=== PATIENT | male | born 1955 | race African-American/Black ===

== ENCOUNTER 2016-07-19 10:58 | Inpatient (IN) | payer OTHER ==
[~2016-07-19] VITALS: Ht 170.2 cm; Wt 46.3 kg
[2016-07-19 12:00] VITALS: BP 94/65
[2016-07-19] MEDS ORDERED: IV NORMAL SALINE 1000ML BAG 1,000 ML IV SCH (12:19)
[2016-07-19] MEDS ORDERED: MAGNESIUM HYDROXIDE 2,400 MG/30 ML ORAL.SUSP. PO PRN (12:30)
[2016-07-19] MEDS ORDERED: MORPHINE SULFATE 2 MG/ML DISP.SYRIN. IV PRN (12:30)
--- NOTE | 2016-07-19 14:06 | EKG ---
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
[2016-07-19 14:18] LABS: BASO % 0 % (0-3); EOS % 0 % (0-3); HEMATOCRIT 32.6 % (39.0-53.0); HEMOGLOBIN 10.2 g/dL (13.0-17.5); LYMPH # 1.2 x10^3/uL (1.0-4.8); LYMPH % 7 % (24-48); MEAN CORPUSCULAR HEMOGLOBIN 26 pg (25-35); MEAN CORPUSCULAR HGB CONC 32 g/dL (31-37); MEAN CORPUSCULAR VOLUME 83 fL (79-100); MONO % 11 % (0-9); NEUT % 82 % (31-73); PLATELET COUNT 295 x10^3/uL (140-400); RED BLOOD COUNT 3.93 x10^6/uL (4.30-5.70); RED CELL DISTRIBUTION WIDTH 15.4 % (11.5-14.5); WHITE BLOOD COUNT 17.1 x10^3/uL (4.0-11.0)
--- NOTE | 2016-07-19 14:22 | PDOC ---
Provider Note Provider Note dictated GUSTAVO COLLAZO MD Jul 19, 2016 14:22
[2016-07-19 14:30] LABS: INR 1.5 (0.8-1.1); PROTHROMBIN TIME PATIENT 16.9 SEC (11.7-14.0)
[2016-07-19 14:36] LABS: CALCIUM 8.5 mg/dL (8.5-10.1); CREATININE 1.1 mg/dL (0.7-1.3); GFR 82.3; POTASSIUM 4.2 mmol/L (3.5-5.1)
[2016-07-19 14:40] VITALS: BP 116/75
[2016-07-19] MEDS: ONDANSETRON PF 4 MG/2 ML VIAL. IV PRN (15:15)
[2016-07-19] MEDS: HEPARIN PF for SUB-Q USE 5,000 UNIT/0.5 ML VIAL. SQ SCH ×2 (15:28→20:28)
--- NOTE | 2016-07-19 15:50 | CONS ---
DATE OF CONSULTATION: 07/19/2016 ATTENDING PHYSICIAN: Yane Jean-Baptiste MD. REASON FOR CONSULTATION: Lung cancer. 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 He presented with persistent cough, ongoing weight loss of 20 pounds. The patient has not received any radiation/chemo yet. He called Dr. Francisco and was complaining of weakness and appeared dehydrated. As a result, he has been hospitalized. Outside CT chest from [place] was reviewed. He had a CT chest, which showed a mass in the right main stem bronchus along with adenopathy. There was postobstructive pneumonitis and effusion involving the right lower lobe. The patient had MRI head and bone scan and CT abdomen at [place] which showed no occult metastatic disease. I have been asked to see him for further evaluation. He appears very weak. He has a cough. No hemoptysis. I have reviewed the patient's chest x-ray. He had significant volume loss in the right one-third of the right upper lobe and a small effusion to the right lower lobe. PAST MEDICAL HISTORY: 1. 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 Metastatic workup including MRI of the head and bone scan and CT abdomen was negative. 2. Postobstructive pneumonitis. 3. Right lower lobe effusion. 4. Underlying COPD. PAST SURGICAL HISTORY: No recent surgeries except appendectomy in the remote past. ALLERGIES: PENICILLIN. REVIEW OF SYSTEMS: Twelve-point systems obtained. Pertinent positives discussed in history of present illness, otherwise noncontributory. All systems that were negative were reviewed as well. SOCIAL HISTORY: Smoked for about 40 years before quitting few weeks ago. FAMILY HISTORY: Noncontributory to lungs. PHYSICAL EXAMINATION: VITAL SIGNS: His vital signs today, blood pressure 94/65, T-max of 100.6, pulse ox 98% on room air. HEENT: Sclerae are nonicteric. NECK: Supple. LUNGS: Diminished breath sounds, right mid chest. CARDIOVASCULAR: Regular rate and rhythm. ABDOMEN: Soft. EXTREMITIES: With no pitting edema. LABORATORY DATA: Have been ordered and they are still not available. I reviewed the chest x-ray which showed marked volume loss in the right one-third of the upper lungs and effusion in the right lower lobe. We will order CT chest for further evaluation. IMPRESSION: 1. 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 Now admitted with dehydration and fever. 2. Postobstructive pneumonia, which was also best visualized on CT chest from [facility]. 3. Right lower lobe pleural effusion, most likely malignant. 4. Fever secondary to postobstructive pneumonia. 5. Marked weight loss due to malignancy. 7. Underlying chronic obstructive pulmonary disease. RECOMMENDATIONS: 1. Discussed with the patient and the family. We will obtain noncontrast CT chest for further evaluation. 2. IV fluids. 3. Add empiric antibiotics. 4. Follow up with Dr. Francisco regarding initiation of radiation. 5. Follow up with Dr. Quinones regarding consideration of chemo. 6. Improve nutritional status. 7. Further recommendations to follow after review of CT chest. d/w family and Dr Jean-Baptiste GUSTAVO COLLAZO MD DR: KITA/caroline JOB#: [id number] / [id number] VENKATESH
[2016-07-19] MEDS ORDERED: ALBUTEROL SULFATE 2.5 MG/3 ML NEBU. NEB PRN (16:00)
--- NOTE | 2016-07-19 16:04 | PDOC1 ---
History and Physical Date of Admission Date of Admission 07/19/16 Identification/Chief Complaint Chief Complaint lung Ca, sob Problems: Source Source: Caregiver, Patient History of Present Illness History of Present Illness 60yo M, who was seen and sent by dr. Francisco for lung Ca. Pt is a poor historian, saying has been feeling exertional sob for 1 month, went to [facility] , found rt Lung Ca, got bx showed adenocarcinoma as per dr. Francisco. cough with clear mucus. lost 15 p within 3 months, low appetite, N/V 2 Weeks. no fever, chills quit smoke 3months. family has cancer history, no details. Past Medical History Cardiovascular: HTN Past Surgical History Past Surgical History: Appendectomy Family History Family History: Cancer Social History Smoke: Quit ALCOHOL: none Drugs: None Current Problem List Problem List Problems Medical Problems: (1) Lung cancer Status: Acute Current Medications Current Medications Current Medications Medications (Trade) Dose Ordered Sig/Francisco Start Time Stop Time Status Last Admin Dose Admin Acetaminophen (Tylenol) 650 mg PRN Q6HRS PRN 07/19/16 12:30 Acetaminophen/ Hydrocodone Bitart (Lortab 5/325) 1 tab PRN Q4HRS PRN 07/19/16 12:30 Albuterol/ Ipratropium (Duoneb) 3 ml RTQID 07/19/16 16:00 Heparin Sodium (Porcine) 5000 unit 5,000 unit Q8HRS 07/19/16 14:00 07/19/16 15:28 5,000 UNIT Levofloxacin/ Dextrose (LEVAQUIN 500mg PREMIX) 100 ml @ 100 mls/hr Q24H 07/19/16 15:30 07/19/16 15:16 100 MLS/HR Magnesium Hydroxide (Milk Of Magnesia) 2,400 mg PRN Q12HR PRN 07/19/16 12:30 Morphine Sulfate 2 mg PRN Q1HR PRN 07/19/16 12:30 Ondansetron HCl (Zofran) 4 mg PRN Q6HRS PRN 07/19/16 12:30 07/19/16 15:15 4 MG Sodium Chloride (Iv Sodium Chloride 0.9% 1000ml Bag) 1,000 ml @ 100 mls/hr Q10H 07/19/16 12:19 07/19/16 22:18 07/19/16 14:47 100 MLS/HR Allergies Allergies Allergies Coded Allergies Type Severity Reaction Last Updated Verified Penicillins Allergy Intermediate 07/19/16 No ROS Review of System CONSTITUTIONAL: No fever or chills EYES: No recent changes SKIN: No rash or itching CARDIOVASCULAR: No chest pain, syncope, palpitations, or edema RESPIRATORY: No SOB or cough GASTROINTESTINAL: No nausea, vomiting or abdominal pain NEUROLOGICAL: No headaches or weakness ENDOCRINE: No cold or heat intolerance GENITOURINARY: No urgency or frequency of urination MUSCULOSKELETAL: No back pain or joint pain LYMPHATICS: No enlarged lymph nodes PSYCHIATRIC: No anxiety or depression Physical Exam Physical Exam GEN.: No apparent distress. Alert and oriented. weak HEENT: Head is normocephalic, atraumatic NECK: Supple. LUNGS: rt decreased bs. HEART: RRR, S1, S2 present. Peripheral pulses intact ABDOMEN: Soft, nontender. Positive bowel sounds. EXTREMITIES: Without any cyanosis. NEUROLOGIC: Normal speech, normal tone PSYCHIATRIC: Normal affect, normal mood. SKIN: No ulcerations Vitals Vitals Vital Signs Date Time Temp Pulse Resp B/P Pulse Ox O2 Delivery O2 Flow Rate FiO2 07/19/16 14:40 100.9 100 18 116/75 99 Room Air 100.9 Labs Labs Laboratory Tests Test 07/19/16 14:05 White Blood Count 17.1x10^3/uL (4.0-11.0) Red Blood Count 3.93x10^6/uL (4.30-5.70) Hemoglobin 10.2g/dL (13.0-17.5) Hematocrit 32.6% (39.0-53.0) Mean Corpuscular Volume 83fL (79-100) Mean Corpuscular Hemoglobin 26pg (25-35) Mean Corpuscular Hemoglobin Concent 32g/dL (31-37) Red Cell Distribution Width 15.4% (11.5-14.5) Platelet Count 295x10^3/uL (140-400) Neutrophils (%) (Auto) 82% (31-73) Lymphocytes (%) (Auto) 7% (24-48) Monocytes (%) (Auto) 11% (0-9) Eosinophils (%) (Auto) 0% (0-3) Basophils (%) (Auto) 0% (0-3) Neutrophils # (Auto) 14.1x10^3uL (1.8-7.7) Lymphocytes # (Auto) 1.2x10^3/uL (1.0-4.8) Monocytes # (Auto) 1.8x10^3/uL (0.0-1.1) Eosinophils # (Auto) 0.0x10^3/uL (0.0-0.7) Basophils # (Auto) 0.0x10^3/uL (0.0-0.2) Prothrombin Time 16.9SEC (11.7-14.0) Prothromb Time International Ratio 1.5 (0.8-1.1) Sodium Level 136mmol/L (136-145) Potassium Level 4.2mmol/L (3.5-5.1) Chloride Level 101mmol/L (98-107) Carbon Dioxide Level 31mmol/L (21-32) Anion Gap 4 (6-14) Blood Urea Nitrogen 23mg/dL (8-26) Creatinine 1.1mg/dL (0.7-1.3) Estimated GFR (Cockcroft-Gault) 82.3 Glucose Level 151mg/dL (70-99) Calcium Level 8.5mg/dL (8.5-10.1) Laboratory Tests Test 07/19/16 14:05 White Blood Count 17.1x10^3/uL (4.0-11.0) Red Blood Count 3.93x10^6/uL (4.30-5.70) Hemoglobin 10.2g/dL (13.0-17.5) Hematocrit 32.6% (39.0-53.0) Mean Corpuscular Volume 83fL (79-100) Mean Corpuscular Hemoglobin 26pg (25-35) Mean Corpuscular Hemoglobin Concent 32g/dL (31-37) Red Cell Distribution Width 15.4% (11.5-14.5) Platelet Count 295x10^3/uL (140-400) Neutrophils (%) (Auto) 82% (31-73) Lymphocytes (%) (Auto) 7% (24-48) Monocytes (%) (Auto) 11% (0-9) Eosinophils (%) (Auto) 0% (0-3) Basophils (%) (Auto) 0% (0-3) Neutrophils # (Auto) 14.1x10^3uL (1.8-7.7) Lymphocytes # (Auto) 1.2x10^3/uL (1.0-4.8) Monocytes # (Auto) 1.8x10^3/uL (0.0-1.1) Eosinophils # (Auto) 0.0x10^3/uL (0.0-0.7) Basophils # (Auto) 0.0x10^3/uL (0.0-0.2) Prothrombin Time 16.9SEC (11.7-14.0) Prothromb Time International Ratio 1.5 (0.8-1.1) Sodium Level 136mmol/L (136-145) Potassium Level 4.2mmol/L (3.5-5.1) Chloride Level 101mmol/L (98-107) Carbon Dioxide Level 31mmol/L (21-32) Anion Gap 4 (6-14) Blood Urea Nitrogen 23mg/dL (8-26) Creatinine 1.1mg/dL (0.7-1.3) Estimated GFR (Cockcroft-Gault) 82.3 Glucose Level 151mg/dL (70-99) Calcium Level 8.5mg/dL (8.5-10.1) VTE Prophylaxis Ordered VTE Prophylaxis Devices: Yes VTE Pharmacological Prophylaxi: Yes Assessment/Plan Assessment/Plan 1. right lung Adenocarcinoma, no treatment yet 2. tobaccoism 3. weight loss 4. bronchitis with 1 5. SIRS with 1 and 4 plan: 1. pulm, onco, RT consult 2. chest CT pending 3. check abd, pelvis to rule out mets 4. ivf 5. levaquin ,duoneb as per pulm 6. DNR dvt ppx PTOT nutrition consult KRISTI GOMEZ MD Jul 19, 2016 16:03
--- NOTE | 2016-07-19 16:12 | RAD ---
EXAM: Chest one view. HISTORY: Lung cancer. COMPARISON: 06/14/2016. FINDINGS: A frontal view of the chest is obtained. The right upper hemithorax is opacified, consistent with a combination of atelectasis and likely a loculated pleural effusion. A small amount of residual aerated lung persists in the right base, not clearly changed. Hyperinflation on the left is consistent with chronic obstructive pulmonary disease. There is no pneumothorax. The heart is not enlarged. IMPRESSION: 1. Stable opacification and volume loss in the right superior hemithorax, consistent with atelectasis and a loculated pleural effusion. CT could further define the anatomy if unclear.
[2016-07-19] MEDS ORDERED: IOHEXOL 300 MG/ML 75 ML VIAL IV ONE (16:15)
[2016-07-19] MEDS ORDERED: CONTRAST GIVEN MC PRN (16:15)
--- NOTE | 2016-07-19 17:01 | RAD ---
CT scan of the chest, abdomen and pelvis with contrast 07/19/2016 Clinical history: Lung cancer. Technique: After the intravenous administration of 75 cc of Omnipaque 300 only, contiguous, 5 mm axial sections were obtained to the chest abdomen and pelvis. One or more of the following individualized dose reduction techniques were utilized for this study: 1. Automated exposure control. 2. Adjustment of the mA and/or kV according to patient size. 3. Use of iterative reconstruction technique. Findings: Comparison is made to the patient's outside CT scan of the abdomen and pelvis dated 06/12/2016. This was performed at [facility]. There is a large right pleural effusion which has increased since the previous examination. Right upper lobe atelectasis is seen. Right lower lobe and to a lesser extent right middle lobe atelectasis and/ or infiltrate is noted. A low-attenuation masslike area is seen in the right hilum which extends to the mediastinum. This appears to extrinsically compress the origin of the right upper lobe bronchus and extrinsically narrows the right main pulmonary artery. It measures approximately 6.4 x 5.6 x 3.8 cm in transverse, craniocaudal and AP dimensions. This is consistent with the patient's history of lung cancer. No discrete mediastinal lymph node is seen. Mild atherosclerotic calcification of the thoracic aorta is seen. The thoracic aorta is tortuous but tapers normally. The heart is normal in size. Moderate bullous emphysematous changes are seen involving the left lung. A 4 mm calcified granuloma is seen involving the left lower lobe. The liver, spleen, pancreas, right adrenal gland and left kidney are within normal limits. Small areas of scarring are seen involving the right kidney. A 1.6 cm low-attenuation lesion is seen involving the left adrenal gland which is suspicious for a metastasis. Moderate atherosclerotic calcification of the abdominal aorta is seen. The abdominal aorta tapers normally. The gallbladder is well-distended. No free fluid or free air is seen within the abdomen. There is no evidence of bowel obstruction. Images through the pelvis demonstrate several diverticula involving the urinary bladder. These measure 2 to 5.7 cm in size. A 2.4 cm area of increased attenuation is seen within the dependent aspect of the largest diverticulum which may represent a bladder calculus versus layering dependent contrast within the urinary bladder. The prostate gland is enlarged likely related to BPH. Calcifications are seen within the prostate gland. Calcified granulomas are seen within the pelvis. No free fluid is seen. Degenerative changes are seen involving the thoracic and lumbar spine. Impression: 1. 6.4 cm right hilar mass is seen which extends to the mediastinum consistent with the patient's history of lung cancer. 2. Large right pleural effusion. Right upper lobe atelectasis is seen. Right lower lobe and right middle lobe atelectasis and/or infiltrate is noted. 3. 1.5 cm low-attenuation lesion is seen involving the left adrenal gland suspicious for a metastasis.
[2016-07-19] MEDS: IPRATRPIUM/ALBUTEROL 0.5/2.5MG 3 ML NEBU. NEB SCH ×2 (17:07→20:23)
[2016-07-19 19:00] VITALS: BP 105/63
[2016-07-19] MEDS: HYDROCODONE/APAP 5/325MG TABLET. PO PRN (20:28)
[2016-07-19 23:00] VITALS: BP 90/62
[2016-07-20] VITALS (14 sets, daily range): BP systolic 89–116; BP diastolic 57–84
[2016-07-20 03:50] LABS: BASO % 0 % (0-3); EOS % 0 % (0-3); HEMATOCRIT 31.6 % (39.0-53.0); HEMOGLOBIN 10.1 g/dL (13.0-17.5); LYMPH % 6 % (24-48); MEAN CORPUSCULAR HEMOGLOBIN 26 pg (25-35); MEAN CORPUSCULAR HGB CONC 32 g/dL (31-37); MEAN CORPUSCULAR VOLUME 83 fL (79-100); MONO % 9 % (0-9); NEUT % 85 % (31-73); PLATELET COUNT 282 x10^3/uL (140-400); RED BLOOD COUNT 3.82 x10^6/uL (4.30-5.70); WHITE BLOOD COUNT 17.1 x10^3/uL (4.0-11.0)
[2016-07-20 04:10] LABS: CALCIUM 8.7 mg/dL (8.5-10.1); GFR 91.9; MAGNESIUM 2.1 mg/dL (1.8-2.4); PHOSPHORUS 2.6 mg/dL (2.6-4.7); POTASSIUM 4.2 mmol/L (3.5-5.1)
[2016-07-20 04:15] LABS: ALBUMIN 1.6 g/dL (3.4-5.0); DIRECT BILIRUBIN 0.2 mg/dL (0.0-0.2); TOTAL BILIRUBIN 0.4 mg/dL (0.2-1.0); TOTAL PROTEIN 6.8 g/dL (6.4-8.2)
[2016-07-20] MEDS: HEPARIN PF for SUB-Q USE 5,000 UNIT/0.5 ML VIAL. SQ SCH ×3 (05:52→21:04)
[2016-07-20] MEDS: IPRATRPIUM/ALBUTEROL 0.5/2.5MG 3 ML NEBU. NEB SCH ×4 (07:31→19:16)
[2016-07-20 07:38] LABS: PLT ESTIMATE ADEQUATE (ADEQUATE)
--- NOTE | 2016-07-20 08:33 | PDOC ---
PULMONARY PROGRESS NOTES Subjective no soa Vitals Vital Signs Date Time Temp Pulse Resp B/P Pulse Ox O2 Delivery O2 Flow Rate FiO2 07/20/16 07:33 94 Room Air 07/20/16 03:18 99.5 78 20 94/62 99.5 General: Alert, No acute distress Lungs: Other (decrease bs right) Cardiovascular: S1 Abdomen: Soft Neuro Exam: Alert Extremities: No Edema Skin: Warm Labs Laboratory Tests Test 07/19/16 14:05 07/20/16 03:10 White Blood Count 17.1x10^3/uL (4.0-11.0) 17.1x10^3/uL (4.0-11.0) Red Blood Count 3.93x10^6/uL (4.30-5.70) 3.82x10^6/uL (4.30-5.70) Hemoglobin 10.2g/dL (13.0-17.5) 10.1g/dL (13.0-17.5) Hematocrit 32.6% (39.0-53.0) 31.6% (39.0-53.0) Mean Corpuscular Volume 83fL (79-100) 83fL (79-100) Mean Corpuscular Hemoglobin 26pg (25-35) 26pg (25-35) Mean Corpuscular Hemoglobin Concent 32g/dL (31-37) 32g/dL (31-37) Red Cell Distribution Width 15.4% (11.5-14.5) 15.0% (11.5-14.5) Platelet Count 295x10^3/uL (140-400) 282x10^3/uL (140-400) Neutrophils (%) (Auto) 82% (31-73) 85% (31-73) Lymphocytes (%) (Auto) 7% (24-48) 6% (24-48) Monocytes (%) (Auto) 11% (0-9) 9% (0-9) Eosinophils (%) (Auto) 0% (0-3) 0% (0-3) Basophils (%) (Auto) 0% (0-3) 0% (0-3) Neutrophils # (Auto) 14.1x10^3uL (1.8-7.7) 14.5x10^3uL (1.8-7.7) Lymphocytes # (Auto) 1.2x10^3/uL (1.0-4.8) 1.0x10^3/uL (1.0-4.8) Monocytes # (Auto) 1.8x10^3/uL (0.0-1.1) 1.5x10^3/uL (0.0-1.1) Eosinophils # (Auto) 0.0x10^3/uL (0.0-0.7) 0.0x10^3/uL (0.0-0.7) Basophils # (Auto) 0.0x10^3/uL (0.0-0.2) 0.0x10^3/uL (0.0-0.2) Prothrombin Time 16.9SEC (11.7-14.0) Prothromb Time International Ratio 1.5 (0.8-1.1) Sodium Level 136mmol/L (136-145) 135mmol/L (136-145) Potassium Level 4.2mmol/L (3.5-5.1) 4.2mmol/L (3.5-5.1) Chloride Level 101mmol/L (98-107) 100mmol/L (98-107) Carbon Dioxide Level 31mmol/L (21-32) 29mmol/L (21-32) Anion Gap 4 (6-14) 6 (6-14) Blood Urea Nitrogen 23mg/dL (8-26) 15mg/dL (8-26) Creatinine 1.1mg/dL (0.7-1.3) 1.0mg/dL (0.7-1.3) Estimated GFR (Cockcroft-Gault) 82.3 91.9 Glucose Level 151mg/dL (70-99) 175mg/dL (70-99) Calcium Level 8.5mg/dL (8.5-10.1) 8.7mg/dL (8.5-10.1) Segmented Neutrophils % 84% (35-66) Lymphocytes % 8% (24-48) Monocytes % 8% (0-10) Platelet Estimate Adequate (ADEQUATE) Phosphorus Level 2.6mg/dL (2.6-4.7) Magnesium Level 2.1mg/dL (1.8-2.4) Total Bilirubin 0.4mg/dL (0.2-1.0) Direct Bilirubin 0.2mg/dL (0.0-0.2) Aspartate Amino Transf (AST/SGOT) 12U/L (15-37) Alanine Aminotransferase (ALT/SGPT) 10U/L (16-63) Alkaline Phosphatase 63U/L (46-116) Total Protein 6.8g/dL (6.4-8.2) Albumin 1.6g/dL (3.4-5.0) Laboratory Tests Test 07/19/16 14:05 07/20/16 03:10 White Blood Count 17.1x10^3/uL (4.0-11.0) 17.1x10^3/uL (4.0-11.0) Red Blood Count 3.93x10^6/uL (4.30-5.70) 3.82x10^6/uL (4.30-5.70) Hemoglobin 10.2g/dL (13.0-17.5) 10.1g/dL (13.0-17.5) Hematocrit 32.6% (39.0-53.0) 31.6% (39.0-53.0) Mean Corpuscular Volume 83fL (79-100) 83fL (79-100) Mean Corpuscular Hemoglobin 26pg (25-35) 26pg (25-35) Mean Corpuscular Hemoglobin Concent 32g/dL (31-37) 32g/dL (31-37) Red Cell Distribution Width 15.4% (11.5-14.5) 15.0% (11.5-14.5) Platelet Count 295x10^3/uL (140-400) 282x10^3/uL (140-400) Neutrophils (%) (Auto) 82% (31-73) 85% (31-73) Lymphocytes (%) (Auto) 7% (24-48) 6% (24-48) Monocytes (%) (Auto) 11% (0-9) 9% (0-9) Eosinophils (%) (Auto) 0% (0-3) 0% (0-3) Basophils (%) (Auto) 0% (0-3) 0% (0-3) Neutrophils # (Auto) 14.1x10^3uL (1.8-7.7) 14.5x10^3uL (1.8-7.7) Lymphocytes # (Auto) 1.2x10^3/uL (1.0-4.8) 1.0x10^3/uL (1.0-4.8) Monocytes # (Auto) 1.8x10^3/uL (0.0-1.1) 1.5x10^3/uL (0.0-1.1) Eosinophils # (Auto) 0.0x10^3/uL (0.0-0.7) 0.0x10^3/uL (0.0-0.7) Basophils # (Auto) 0.0x10^3/uL (0.0-0.2) 0.0x10^3/uL (0.0-0.2) Prothrombin Time 16.9SEC (11.7-14.0) Prothromb Time International Ratio 1.5 (0.8-1.1) Sodium Level 136mmol/L (136-145) 135mmol/L (136-145) Potassium Level 4.2mmol/L (3.5-5.1) 4.2mmol/L (3.5-5.1) Chloride Level 101mmol/L (98-107) 100mmol/L (98-107) Carbon Dioxide Level 31mmol/L (21-32) 29mmol/L (21-32) Anion Gap 4 (6-14) 6 (6-14) Blood Urea Nitrogen 23mg/dL (8-26) 15mg/dL (8-26) Creatinine 1.1mg/dL (0.7-1.3) 1.0mg/dL (0.7-1.3) Estimated GFR (Cockcroft-Gault) 82.3 91.9 Glucose Level 151mg/dL (70-99) 175mg/dL (70-99) Calcium Level 8.5mg/dL (8.5-10.1) 8.7mg/dL (8.5-10.1) Segmented Neutrophils % 84% (35-66) Lymphocytes % 8% (24-48) Monocytes % 8% (0-10) Platelet Estimate Adequate (ADEQUATE) Phosphorus Level 2.6mg/dL (2.6-4.7) Magnesium Level 2.1mg/dL (1.8-2.4) Total Bilirubin 0.4mg/dL (0.2-1.0) Direct Bilirubin 0.2mg/dL (0.0-0.2) Aspartate Amino Transf (AST/SGOT) 12U/L (15-37) Alanine Aminotransferase (ALT/SGPT) 10U/L (16-63) Alkaline Phosphatase 63U/L (46-116) Total Protein 6.8g/dL (6.4-8.2) Albumin 1.6g/dL (3.4-5.0) Impression . 1. 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 Now admitted with dehydration and fever. 2. Postobstructive pneumonia, which was also best visualized on CT chest from [facility]. 3. Moderate to large right pleural effusion, most likely malignant. 4. Fever secondary to postobstructive pneumonia. 5. Marked weight loss due to malignancy. 7. Underlying chronic obstructive pulmonary disease. Plan . 1. Discussed with the patient and Dr Ng. CT chest findings discussed. large hilar mass with moderate-large right effusion and post-obstructive collapse RUL/ adrenal mets. would benefit from right chest tube and possible pleurodesis.Pt agrees 2. IV fluids. 3. empiric antibiotics. 4. Follow up with Dr. Francisco regarding initiation of radiation. 5. Follow up with Dr. Quinones regarding consideration of chemo. 6. Improve nutritional status. 7. Prognosis guarded GUSTAVO COLLAZO MD Jul 20, 2016 08:33
--- NOTE | 2016-07-20 08:35 | PDOC ---
PROGRESS NOTES Chief Complaint Chief Complaint 1. right lung Adenocarcinoma, stage 3B 2. sepsis 3. post-obstructive pneumonia, w. pleural effusion, compression 4. severe malnutrition w/ weight 5. mild coagulopathy maybe nutritional, MVI 6. anemia of chronic disease 7. leukocytosis, sepsis, History of Present Illness History of Present Illness IR consulted for chest tube, discussed with Dr. Dominguez, will plan pleurodesis cont IV abx Rad onc and Onc salt for food, nutrition consult, poor PO intake, Vitals Vitals Vital Signs Date Time Temp Pulse Resp B/P Pulse Ox O2 Delivery O2 Flow Rate FiO2 07/20/16 07:33 94 Room Air 07/20/16 03:18 99.5 78 20 94/62 99.5 Physical Exam General: Alert, Oriented X3, Cooperative, mild distress Heart: Regular rate, No murmurs Lungs: Wheezing, Other (dull bases, right dull, poor volume) Abdomen: Normal bowel sounds, Soft Extremities: No cyanosis, Other (extensive nail clubbing) Skin: No breakdown Labs LABS Laboratory Tests Test 07/19/16 14:05 07/20/16 03:10 White Blood Count 17.1x10^3/uL (4.0-11.0) 17.1x10^3/uL (4.0-11.0) Red Blood Count 3.93x10^6/uL (4.30-5.70) 3.82x10^6/uL (4.30-5.70) Hemoglobin 10.2g/dL (13.0-17.5) 10.1g/dL (13.0-17.5) Hematocrit 32.6% (39.0-53.0) 31.6% (39.0-53.0) Mean Corpuscular Volume 83fL (79-100) 83fL (79-100) Mean Corpuscular Hemoglobin 26pg (25-35) 26pg (25-35) Mean Corpuscular Hemoglobin Concent 32g/dL (31-37) 32g/dL (31-37) Red Cell Distribution Width 15.4% (11.5-14.5) 15.0% (11.5-14.5) Platelet Count 295x10^3/uL (140-400) 282x10^3/uL (140-400) Neutrophils (%) (Auto) 82% (31-73) 85% (31-73) Lymphocytes (%) (Auto) 7% (24-48) 6% (24-48) Monocytes (%) (Auto) 11% (0-9) 9% (0-9) Eosinophils (%) (Auto) 0% (0-3) 0% (0-3) Basophils (%) (Auto) 0% (0-3) 0% (0-3) Neutrophils # (Auto) 14.1x10^3uL (1.8-7.7) 14.5x10^3uL (1.8-7.7) Lymphocytes # (Auto) 1.2x10^3/uL (1.0-4.8) 1.0x10^3/uL (1.0-4.8) Monocytes # (Auto) 1.8x10^3/uL (0.0-1.1) 1.5x10^3/uL (0.0-1.1) Eosinophils # (Auto) 0.0x10^3/uL (0.0-0.7) 0.0x10^3/uL (0.0-0.7) Basophils # (Auto) 0.0x10^3/uL (0.0-0.2) 0.0x10^3/uL (0.0-0.2) Prothrombin Time 16.9SEC (11.7-14.0) Prothromb Time International Ratio 1.5 (0.8-1.1) Sodium Level 136mmol/L (136-145) 135mmol/L (136-145) Potassium Level 4.2mmol/L (3.5-5.1) 4.2mmol/L (3.5-5.1) Chloride Level 101mmol/L (98-107) 100mmol/L (98-107) Carbon Dioxide Level 31mmol/L (21-32) 29mmol/L (21-32) Anion Gap 4 (6-14) 6 (6-14) Blood Urea Nitrogen 23mg/dL (8-26) 15mg/dL (8-26) Creatinine 1.1mg/dL (0.7-1.3) 1.0mg/dL (0.7-1.3) Estimated GFR (Cockcroft-Gault) 82.3 91.9 Glucose Level 151mg/dL (70-99) 175mg/dL (70-99) Calcium Level 8.5mg/dL (8.5-10.1) 8.7mg/dL (8.5-10.1) Segmented Neutrophils % 84% (35-66) Lymphocytes % 8% (24-48) Monocytes % 8% (0-10) Platelet Estimate Adequate (ADEQUATE) Phosphorus Level 2.6mg/dL (2.6-4.7) Magnesium Level 2.1mg/dL (1.8-2.4) Total Bilirubin 0.4mg/dL (0.2-1.0) Direct Bilirubin 0.2mg/dL (0.0-0.2) Aspartate Amino Transf (AST/SGOT) 12U/L (15-37) Alanine Aminotransferase (ALT/SGPT) 10U/L (16-63) Alkaline Phosphatase 63U/L (46-116) Total Protein 6.8g/dL (6.4-8.2) Albumin 1.6g/dL (3.4-5.0) Review of Systems Review of Systems nausea poor PO intake, complains of the food not tasting good he may eat anything he wishes, family may bring food Assessment and Plan Assessmemt and Plan Problems Medical Problems: (1) Lung cancer Status: Acute Problems: Comment Review of Relevant I have reviewed the following items peter (where applicable) has been applied. Labs Laboratory Tests Test 07/19/16 14:05 07/20/16 03:10 White Blood Count 17.1x10^3/uL (4.0-11.0) 17.1x10^3/uL (4.0-11.0) Red Blood Count 3.93x10^6/uL (4.30-5.70) 3.82x10^6/uL (4.30-5.70) Hemoglobin 10.2g/dL (13.0-17.5) 10.1g/dL (13.0-17.5) Hematocrit 32.6% (39.0-53.0) 31.6% (39.0-53.0) Mean Corpuscular Volume 83fL (79-100) 83fL (79-100) Mean Corpuscular Hemoglobin 26pg (25-35) 26pg (25-35) Mean Corpuscular Hemoglobin Concent 32g/dL (31-37) 32g/dL (31-37) Red Cell Distribution Width 15.4% (11.5-14.5) 15.0% (11.5-14.5) Platelet Count 295x10^3/uL (140-400) 282x10^3/uL (140-400) Neutrophils (%) (Auto) 82% (31-73) 85% (31-73) Lymphocytes (%) (Auto) 7% (24-48) 6% (24-48) Monocytes (%) (Auto) 11% (0-9) 9% (0-9) Eosinophils (%) (Auto) 0% (0-3) 0% (0-3) Basophils (%) (Auto) 0% (0-3) 0% (0-3) Neutrophils # (Auto) 14.1x10^3uL (1.8-7.7) 14.5x10^3uL (1.8-7.7) Lymphocytes # (Auto) 1.2x10^3/uL (1.0-4.8) 1.0x10^3/uL (1.0-4.8) Monocytes # (Auto) 1.8x10^3/uL (0.0-1.1) 1.5x10^3/uL (0.0-1.1) Eosinophils # (Auto) 0.0x10^3/uL (0.0-0.7) 0.0x10^3/uL (0.0-0.7) Basophils # (Auto) 0.0x10^3/uL (0.0-0.2) 0.0x10^3/uL (0.0-0.2) Prothrombin Time 16.9SEC (11.7-14.0) Prothromb Time International Ratio 1.5 (0.8-1.1) Sodium Level 136mmol/L (136-145) 135mmol/L (136-145) Potassium Level 4.2mmol/L (3.5-5.1) 4.2mmol/L (3.5-5.1) Chloride Level 101mmol/L (98-107) 100mmol/L (98-107) Carbon Dioxide Level 31mmol/L (21-32) 29mmol/L (21-32) Anion Gap 4 (6-14) 6 (6-14) Blood Urea Nitrogen 23mg/dL (8-26) 15mg/dL (8-26) Creatinine 1.1mg/dL (0.7-1.3) 1.0mg/dL (0.7-1.3) Estimated GFR (Cockcroft-Gault) 82.3 91.9 Glucose Level 151mg/dL (70-99) 175mg/dL (70-99) Calcium Level 8.5mg/dL (8.5-10.1) 8.7mg/dL (8.5-10.1) Segmented Neutrophils % 84% (35-66) Lymphocytes % 8% (24-48) Monocytes % 8% (0-10) Platelet Estimate Adequate (ADEQUATE) Phosphorus Level 2.6mg/dL (2.6-4.7) Magnesium Level 2.1mg/dL (1.8-2.4) Total Bilirubin 0.4mg/dL (0.2-1.0) Direct Bilirubin 0.2mg/dL (0.0-0.2) Aspartate Amino Transf (AST/SGOT) 12U/L (15-37) Alanine Aminotransferase (ALT/SGPT) 10U/L (16-63) Alkaline Phosphatase 63U/L (46-116) Total Protein 6.8g/dL (6.4-8.2) Albumin 1.6g/dL (3.4-5.0) Laboratory Tests Test 07/19/16 14:05 07/20/16 03:10 White Blood Count 17.1x10^3/uL (4.0-11.0) 17.1x10^3/uL (4.0-11.0) Red Blood Count 3.93x10^6/uL (4.30-5.70) 3.82x10^6/uL (4.30-5.70) Hemoglobin 10.2g/dL (13.0-17.5) 10.1g/dL (13.0-17.5) Hematocrit 32.6% (39.0-53.0) 31.6% (39.0-53.0) Mean Corpuscular Volume 83fL (79-100) 83fL (79-100) Mean Corpuscular Hemoglobin 26pg (25-35) 26pg (25-35) Mean Corpuscular Hemoglobin Concent 32g/dL (31-37) 32g/dL (31-37) Red Cell Distribution Width 15.4% (11.5-14.5) 15.0% (11.5-14.5) Platelet Count 295x10^3/uL (140-400) 282x10^3/uL (140-400) Neutrophils (%) (Auto) 82% (31-73) 85% (31-73) Lymphocytes (%) (Auto) 7% (24-48) 6% (24-48) Monocytes (%) (Auto) 11% (0-9) 9% (0-9) Eosinophils (%) (Auto) 0% (0-3) 0% (0-3) Basophils (%) (Auto) 0% (0-3) 0% (0-3) Neutrophils # (Auto) 14.1x10^3uL (1.8-7.7) 14.5x10^3uL (1.8-7.7) Lymphocytes # (Auto) 1.2x10^3/uL (1.0-4.8) 1.0x10^3/uL (1.0-4.8) Monocytes # (Auto) 1.8x10^3/uL (0.0-1.1) 1.5x10^3/uL (0.0-1.1) Eosinophils # (Auto) 0.0x10^3/uL (0.0-0.7) 0.0x10^3/uL (0.0-0.7) Basophils # (Auto) 0.0x10^3/uL (0.0-0.2) 0.0x10^3/uL (0.0-0.2) Prothrombin Time 16.9SEC (11.7-14.0) Prothromb Time International Ratio 1.5 (0.8-1.1) Sodium Level 136mmol/L (136-145) 135mmol/L (136-145) Potassium Level 4.2mmol/L (3.5-5.1) 4.2mmol/L (3.5-5.1) Chloride Level 101mmol/L (98-107) 100mmol/L (98-107) Carbon Dioxide Level 31mmol/L (21-32) 29mmol/L (21-32) Anion Gap 4 (6-14) 6 (6-14) Blood Urea Nitrogen 23mg/dL (8-26) 15mg/dL (8-26) Creatinine 1.1mg/dL (0.7-1.3) 1.0mg/dL (0.7-1.3) Estimated GFR (Cockcroft-Gault) 82.3 91.9 Glucose Level 151mg/dL (70-99) 175mg/dL (70-99) Calcium Level 8.5mg/dL (8.5-10.1) 8.7mg/dL (8.5-10.1) Segmented Neutrophils % 84% (35-66) Lymphocytes % 8% (24-48) Monocytes % 8% (0-10) Platelet Estimate Adequate (ADEQUATE) Phosphorus Level 2.6mg/dL (2.6-4.7) Magnesium Level 2.1mg/dL (1.8-2.4) Total Bilirubin 0.4mg/dL (0.2-1.0) Direct Bilirubin 0.2mg/dL (0.0-0.2) Aspartate Amino Transf (AST/SGOT) 12U/L (15-37) Alanine Aminotransferase (ALT/SGPT) 10U/L (16-63) Alkaline Phosphatase 63U/L (46-116) Total Protein 6.8g/dL (6.4-8.2) Albumin 1.6g/dL (3.4-5.0) Medications Current Medications Sodium Chloride (Iv Sodium Chloride 0.9% 1000ml Bag) 1,000 ml @ 100 mls/hr Q10H IV Last administered on 07/19/16 14:47; Start 07/19/16 at 12:19; Stop at 22:18; Status DC Ondansetron HCl (Zofran) 4 mg PRN Q6HRS PRN IV NAUSEA/VOMITING Last administered on 07/19/16 15:15; Start 07/19/16 at 12:30 Morphine Sulfate 2 mg PRN Q1HR PRN IV PAIN; Start 07/19/16 at 12:30 Acetaminophen/ Hydrocodone Bitart (Lortab 5/325) 1 tab PRN Q4HRS PRN PO MILD PAIN Last administered on 07/19/16 20:28; Start 07/19/16 at 12:30 Acetaminophen (Tylenol) 650 mg PRN Q6HRS PRN PO MILD PAIN / TEMP; Start at 12:30 Magnesium Hydroxide (Milk Of Magnesia) 2,400 mg PRN Q12HR PRN PO CONSTIPATION; Start 07/19/16 at 12:30 Heparin Sodium (Porcine) 5000 unit 5,000 unit Q8HRS SQ Last administered on 07/19 20:28; Start 07/19/16 at 14:00 Levofloxacin/ Dextrose (LEVAQUIN 500mg PREMIX) 100 ml @ 100 mls/hr Q24H IV Last administered on 07/19/16 15:16; Start 07/19/16 at 15:30 Albuterol/ Ipratropium (Duoneb) 3 ml RTQID NEB Last administered on 07/20/16 07 :31; Start 07/19/16 at 16:00 Albuterol Sulfate (Ventolin Neb Soln) 2.5 mg PRN Q4HRS PRN NEB SHORTNESS OF BREATH; Start 07/19/16 at 16:00 Iohexol (Omnipaque 300 Mg/ml) 75 ml 1X ONCE IV Last administered on 07/19/16 16:23; Start 07/19/16 at 16:15; Stop 07/19/16 at 16:16; Status DC Info (Do NOT chart on this entry -- for MONITORING) 1 each PRN DAILY PRN MC SEE COMMENTS; Start 07/19/16 at 16:15; Stop 07/21/16 at 16:14 Enoxaparin Sodium (Lovenox Per Pharmacy Prophylaxis Dosing) 1 each PRN DAILY PRN MC SEE COMMENTS; Start 07/20/16 at 08:15; Status Cancel Multivitamins (Thera M Plus) 1 tab DAILY PO ; Start 07/20/16 at 09:00 Budesonide (Pulmicort) 0.5 mg RTBID NEB ; Start 07/20/16 at 08:15 Enoxaparin Sodium (Lovenox 40mg Syringe) 40 mg Q24H SQ ; Start 07/20/16 at 09:00 ; Status Cancel Vitals/I & O Vital Sign - Last 24 Hours 07/19/16 07/19/16 07/19/16 07/19/16 12:00 14:33 14:40 17:08 Temp 100.6 100.9 100.6 100.9 Pulse 92 100 Resp 18 18 B/P 94/65 116/75 Pulse Ox 98 99 O2 Delivery Room Air Room Air Room Air Room Air 07/19/16 07/19/16 07/19/16 07/19/16 19:00 20:00 20:25 20:28 Temp 101.8 101.8 Pulse 94 Resp 20 B/P 105/63 Pulse Ox 96 93 93 O2 Delivery Room Air Room Air Room Air Room Air 07/19/16 07/19/16 07/20/16 07/20/16 21:28 23:00 03:18 07:33 Temp 99.5 99.5 99.5 99.5 Pulse 90 78 Resp 20 20 B/P 90/62 94/62 Pulse Ox 93 96 98 94 O2 Delivery Room Air Room Air Room Air Room Air Intake and Output 07/19/16 07/19/16 07/20/16 15:00 23:00 07:00 Intake Total 180 ml Output Total 700 ml Balance 180 ml -700 ml TERESITA VANESSA MD Jul 20, 2016 08:35
[2016-07-20] MEDS ORDERED: ENOXAPARIN 40 MG/0.4 ML DISP.SYRIN. SQ SCH (09:00)
[2016-07-20] MEDS: MULTIVITAMIN with MINERAL TABLET. PO SCH (09:27)
--- NOTE | 2016-07-20 09:54 | PDOC2 ---
PALLIATIVE CARE Palliative Care Note Palliative Care Consult requested by Dr. Quinones Diagnosis; 1. right lung Adenocarcinoma, stage 4 ; Chest tube and pleurodesis discussed and patient agrees 2. sepsis--IV antibiotics 3. post-obstructive pneumonia, w. pleural effusion, compression 4. severe malnutrition w/ weight; Dietary consult 5. mild coagulopathy maybe nutritional, MVI 6. anemia of chronic disease Oncology/Raidiology consult. Plan palliative radiation x 10 days. Code Status: DNR/DNI Met with светлана Werner along with Dr. Francisco. CT inserted by Radiology Plan family meeting tomorrow at 10am HAILE REYNOLDS Jul 20, 2016 09:54
[2016-07-20] MEDS: HYDROCODONE/APAP 5/325MG TABLET. PO PRN ×2 (10:02→21:03)
[2016-07-20] MEDS: ACETAMINOPHEN 325 MG TABLET. PO PRN (10:03)
[2016-07-20] MEDS: BUDESONIDE 0.5 MG/2 ML NEBU NEB SCH ×2 (11:50→19:16)
--- NOTE | 2016-07-20 12:46 | PDOC2 ---
CONSULT Date of Consult Date of Consult DATE: 07/20/16 TIME: 12:35 Past Medical History Cardiovascular: HTN Past Surgical History Past Surgical History: Appendectomy Family History Family History: Cancer Social History Quit ALCOHOL: none Drugs: None Current Problem List Problem List Problems Medical Problems: (1) Lung cancer Status: Acute Current Medications Current Medications Current Medications Sodium Chloride (Iv Sodium Chloride 0.9% 1000ml Bag) 1,000 ml @ 100 mls/hr Q10H IV Last administered on 07/19/16 14:47; Start 07/19/16 at 12:19; Stop at 22:18; Status DC Ondansetron HCl (Zofran) 4 mg PRN Q6HRS PRN IV NAUSEA/VOMITING Last administered on 07/19/16 15:15; Start 07/19/16 at 12:30 Morphine Sulfate 2 mg PRN Q1HR PRN IV PAIN; Start 07/19/16 at 12:30 Acetaminophen/ Hydrocodone Bitart (Lortab 5/325) 1 tab PRN Q4HRS PRN PO MILD PAIN Last administered on 07/20/16 10:02; Start 07/19/16 at 12:30 Acetaminophen (Tylenol) 650 mg PRN Q6HRS PRN PO MILD PAIN / TEMP Last administered on 07/20/16 10:03; Start 07/19/16 at 12:30 Magnesium Hydroxide (Milk Of Magnesia) 2,400 mg PRN Q12HR PRN PO CONSTIPATION; Start 07/19/16 at 12:30 Heparin Sodium (Porcine) 5000 unit 5,000 unit Q8HRS SQ Last administered on 07/19 20:28; Start 07/19/16 at 14:00 Levofloxacin/ Dextrose (LEVAQUIN 500mg PREMIX) 100 ml @ 100 mls/hr Q24H IV Last administered on 07/19/16 15:16; Start 07/19/16 at 15:30 Albuterol/ Ipratropium (Duoneb) 3 ml RTQID NEB Last administered on 07/20/16 11 :50; Start 07/19/16 at 16:00 Albuterol Sulfate (Ventolin Neb Soln) 2.5 mg PRN Q4HRS PRN NEB SHORTNESS OF BREATH; Start 07/19/16 at 16:00 Iohexol (Omnipaque 300 Mg/ml) 75 ml 1X ONCE IV Last administered on 07/19/16 16:23; Start 07/19/16 at 16:15; Stop 07/19/16 at 16:16; Status DC Info (Do NOT chart on this entry -- for MONITORING) 1 each PRN DAILY PRN MC SEE COMMENTS; Start 07/19/16 at 16:15; Stop 07/21/16 at 16:14 Enoxaparin Sodium (Lovenox Per Pharmacy Prophylaxis Dosing) 1 each PRN DAILY PRN MC SEE COMMENTS; Start 07/20/16 at 08:15; Status Cancel Multivitamins (Thera M Plus) 1 tab DAILY PO Last administered on 07/20/16 09:27 ; Start 07/20/16 at 09:00 Budesonide (Pulmicort) 0.5 mg RTBID NEB Last administered on 07/20/16 11:50; Start 07/20/16 at 08:15 Enoxaparin Sodium (Lovenox 40mg Syringe) 40 mg Q24H SQ ; Start 07/20/16 at 09:00 ; Status Cancel Allergies Allergies: Coded Allergies: Penicillins (Verified Allergy, Intermediate, 07/20/16) Vitals VITALS Vital Signs Date Time Temp Pulse Resp B/P Pulse Ox O2 Delivery O2 Flow Rate FiO2 07/20/16 11:54 Room Air 07/20/16 11:02 20 94 07/20/16 11:00 100.2 81 98/67 100.2 Labs Labs Laboratory Tests Test 07/19/16 14:05 07/20/16 03:10 White Blood Count 17.1x10^3/uL (4.0-11.0) 17.1x10^3/uL (4.0-11.0) Red Blood Count 3.93x10^6/uL (4.30-5.70) 3.82x10^6/uL (4.30-5.70) Hemoglobin 10.2g/dL (13.0-17.5) 10.1g/dL (13.0-17.5) Hematocrit 32.6% (39.0-53.0) 31.6% (39.0-53.0) Mean Corpuscular Volume 83fL (79-100) 83fL (79-100) Mean Corpuscular Hemoglobin 26pg (25-35) 26pg (25-35) Mean Corpuscular Hemoglobin Concent 32g/dL (31-37) 32g/dL (31-37) Red Cell Distribution Width 15.4% (11.5-14.5) 15.0% (11.5-14.5) Platelet Count 295x10^3/uL (140-400) 282x10^3/uL (140-400) Neutrophils (%) (Auto) 82% (31-73) 85% (31-73) Lymphocytes (%) (Auto) 7% (24-48) 6% (24-48) Monocytes (%) (Auto) 11% (0-9) 9% (0-9) Eosinophils (%) (Auto) 0% (0-3) 0% (0-3) Basophils (%) (Auto) 0% (0-3) 0% (0-3) Neutrophils # (Auto) 14.1x10^3uL (1.8-7.7) 14.5x10^3uL (1.8-7.7) Lymphocytes # (Auto) 1.2x10^3/uL (1.0-4.8) 1.0x10^3/uL (1.0-4.8) Monocytes # (Auto) 1.8x10^3/uL (0.0-1.1) 1.5x10^3/uL (0.0-1.1) Eosinophils # (Auto) 0.0x10^3/uL (0.0-0.7) 0.0x10^3/uL (0.0-0.7) Basophils # (Auto) 0.0x10^3/uL (0.0-0.2) 0.0x10^3/uL (0.0-0.2) Prothrombin Time 16.9SEC (11.7-14.0) Prothromb Time International Ratio 1.5 (0.8-1.1) Sodium Level 136mmol/L (136-145) 135mmol/L (136-145) Potassium Level 4.2mmol/L (3.5-5.1) 4.2mmol/L (3.5-5.1) Chloride Level 101mmol/L (98-107) 100mmol/L (98-107) Carbon Dioxide Level 31mmol/L (21-32) 29mmol/L (21-32) Anion Gap 4 (6-14) 6 (6-14) Blood Urea Nitrogen 23mg/dL (8-26) 15mg/dL (8-26) Creatinine 1.1mg/dL (0.7-1.3) 1.0mg/dL (0.7-1.3) Estimated GFR (Cockcroft-Gault) 82.3 91.9 Glucose Level 151mg/dL (70-99) 175mg/dL (70-99) Calcium Level 8.5mg/dL (8.5-10.1) 8.7mg/dL (8.5-10.1) Segmented Neutrophils % 84% (35-66) Lymphocytes % 8% (24-48) Monocytes % 8% (0-10) Platelet Estimate Adequate (ADEQUATE) Phosphorus Level 2.6mg/dL (2.6-4.7) Magnesium Level 2.1mg/dL (1.8-2.4) Total Bilirubin 0.4mg/dL (0.2-1.0) Direct Bilirubin 0.2mg/dL (0.0-0.2) Aspartate Amino Transf (AST/SGOT) 12U/L (15-37) Alanine Aminotransferase (ALT/SGPT) 10U/L (16-63) Alkaline Phosphatase 63U/L (46-116) Total Protein 6.8g/dL (6.4-8.2) Albumin 1.6g/dL (3.4-5.0) Laboratory Tests Test 07/19/16 14:05 07/20/16 03:10 White Blood Count 17.1x10^3/uL (4.0-11.0) 17.1x10^3/uL (4.0-11.0) Red Blood Count 3.93x10^6/uL (4.30-5.70) 3.82x10^6/uL (4.30-5.70) Hemoglobin 10.2g/dL (13.0-17.5) 10.1g/dL (13.0-17.5) Hematocrit 32.6% (39.0-53.0) 31.6% (39.0-53.0) Mean Corpuscular Volume 83fL (79-100) 83fL (79-100) Mean Corpuscular Hemoglobin 26pg (25-35) 26pg (25-35) Mean Corpuscular Hemoglobin Concent 32g/dL (31-37) 32g/dL (31-37) Red Cell Distribution Width 15.4% (11.5-14.5) 15.0% (11.5-14.5) Platelet Count 295x10^3/uL (140-400) 282x10^3/uL (140-400) Neutrophils (%) (Auto) 82% (31-73) 85% (31-73) Lymphocytes (%) (Auto) 7% (24-48) 6% (24-48) Monocytes (%) (Auto) 11% (0-9) 9% (0-9) Eosinophils (%) (Auto) 0% (0-3) 0% (0-3) Basophils (%) (Auto) 0% (0-3) 0% (0-3) Neutrophils # (Auto) 14.1x10^3uL (1.8-7.7) 14.5x10^3uL (1.8-7.7) Lymphocytes # (Auto) 1.2x10^3/uL (1.0-4.8) 1.0x10^3/uL (1.0-4.8) Monocytes # (Auto) 1.8x10^3/uL (0.0-1.1) 1.5x10^3/uL (0.0-1.1) Eosinophils # (Auto) 0.0x10^3/uL (0.0-0.7) 0.0x10^3/uL (0.0-0.7) Basophils # (Auto) 0.0x10^3/uL (0.0-0.2) 0.0x10^3/uL (0.0-0.2) Prothrombin Time 16.9SEC (11.7-14.0) Prothromb Time International Ratio 1.5 (0.8-1.1) Sodium Level 136mmol/L (136-145) 135mmol/L (136-145) Potassium Level 4.2mmol/L (3.5-5.1) 4.2mmol/L (3.5-5.1) Chloride Level 101mmol/L (98-107) 100mmol/L (98-107) Carbon Dioxide Level 31mmol/L (21-32) 29mmol/L (21-32) Anion Gap 4 (6-14) 6 (6-14) Blood Urea Nitrogen 23mg/dL (8-26) 15mg/dL (8-26) Creatinine 1.1mg/dL (0.7-1.3) 1.0mg/dL (0.7-1.3) Estimated GFR (Cockcroft-Gault) 82.3 91.9 Glucose Level 151mg/dL (70-99) 175mg/dL (70-99) Calcium Level 8.5mg/dL (8.5-10.1) 8.7mg/dL (8.5-10.1) Segmented Neutrophils % 84% (35-66) Lymphocytes % 8% (24-48) Monocytes % 8% (0-10) Platelet Estimate Adequate (ADEQUATE) Phosphorus Level 2.6mg/dL (2.6-4.7) Magnesium Level 2.1mg/dL (1.8-2.4) Total Bilirubin 0.4mg/dL (0.2-1.0) Direct Bilirubin 0.2mg/dL (0.0-0.2) Aspartate Amino Transf (AST/SGOT) 12U/L (15-37) Alanine Aminotransferase (ALT/SGPT) 10U/L (16-63) Alkaline Phosphatase 63U/L (46-116) Total Protein 6.8g/dL (6.4-8.2) Albumin 1.6g/dL (3.4-5.0) Assessment/Plan Assessment/Plan HEMATOLOGY/ONCOLOGY CONSULTATION REPORT: CONSULTATION REQUESTED BY: Dr. Jean-Baptiste REASON FOR CONSULTATION: Adnocarcinoma RUL lung diagnosed 06/13/16. HPI: The patient sustained a syncopal episode in May 19992016 and he was taken to [facility] emergency room for further workup. The patient reports having had a syncopal episode after trying to have a bowel movement. He has had constipation for about 1-2 weeks prior to the admission. He also has a 2 month history of weight loss of about 20 pounds but his appetite has been stable. He also has noted right-sided chest pain during this time and has had exertional dyspnea. No palpitations. He has also noticed generalized weakness. He has smoked half a pack of cigarettes per day for approximately 39 years. He underwent a chest x-ray in the emergency room that revealed partial collapse of the right upper lobe of the lung. Hence she he underwent CT scan of the chest abdomen and pelvis on 06/12/2016 which revealed which revealed partial collapse and opacification of the right lung predominantly the upper lobe and part of the right middle lobe. Right-sided volume loss was noted. There was extensive emphysema. Right hilar and mediastinal mass confluent with probable adenopathy. This mass encases the right mainstem bronchus and right main pulmonary artery as well as partial encasement of the left proximal bronchus. He underwent a bronchoscopy on 06/13/2016 that revealed an obstructing lesion in the right mainstem bronchus within 2 cm from the billie and the biopsy revealed poorly differentiated adenocarcinoma. Patient was not eligible to take treatments at [facility] due to insurance issues. He applied for [place] Medicaid. He called Dr. Francisco and was complaining of weakness and appeared dehydrated. As a result, he has been hospitalized. CT 07/19/16 revealed 6.4 cm right hilar mass is seen which extends to the mediastinum consistent with the patient's history of lung cancer. Large right pleural effusion. Right upper lobe atelectasis is seen. Right lower lobe and right middle lobe atelectasis and/or infiltrate is noted. 1.5 cm low-attenuation lesion is seen involving the left adrenal gland suspicious for a metastasis. Past medical history: Emphysema. Social history. He has smoked half a pack of cigarettes per day for 39 years and he quit in 2016. Family history positive for cancer in his mother father and sister and brother. ROS - 14 point ROS done, pertinent postives as in HPI and rest are negative. Physical Exam Constitutional: He is oriented to person, place, and time. He appears well- developed and poorly-nourished. HENT: Head: Normocephalic and atraumatic. Eyes: EOM are normal. Pupils are equal, round, and reactive to light. Neck: Neck supple. Cardiovascular: Normal rate and normal heart sounds. Pulmonary/Chest: Effort normal and breath sounds normal. Abdominal: Soft. He exhibits no mass. There is no tenderness. Musculoskeletal: He exhibits no tenderness. Neurological: He is alert and oriented to person, place, and time. Skin: Skin is warm and dry. No rash noted. Psychiatric: He has a normal mood and affect. Vitals reviewed. Assessment and Plan: 1. 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 I had previously discussed in detail with the patient and his family regarding the diagnosis prognosis and treatment options for stage III B lung cancer. But , not CT is suggestive of stage 4 cancer. His performance status is poor. However he does wish to try treatments and he would quit treatment if he cannot tolerate it. I have recommended palliative care consult. I will request for EGFR/ALK/ROS-1 and PD-L1 markers. 2. Weight loss secondary to malignancy 3. Right-sided chest pain due to malignancy. 4. Moderate-large right effusion and post-obstructive collapse RUL/ adrenal mets. Appreciate pulm consult and agree he would benefit from right chest tube and possible pleurodesis. I d/w IR and requested cytology. ALEXANDER BRIGGS MD Jul 20, 2016 12:46
[2016-07-20] MEDS ORDERED: LIDOCAINE 1% / SOD BICARB 8.4% 20 ML VIAL. IJ ONE ×2 (13:16→14:00)
[2016-07-20] MEDS ORDERED: FENTANYL PF 100 MCG/2 ML VIAL. ONE (13:35)
[2016-07-20] MEDS ORDERED: MIDAZOLAM HCL 2 MG/2 ML VIAL. ONE (13:35)
[2016-07-20] MEDS ORDERED: FENTANYL PF 100 MCG/2 ML VIAL. IV ONE (14:00)
[2016-07-20] MEDS ORDERED: MIDAZOLAM HCL 2 MG/2 ML VIAL. IV ONE (14:00)
--- NOTE | 2016-07-20 14:05 | PDOC ---
MODERATE SEDATION ASSESSMENT RISKS/ALTERNATIVES Risks/Alternatives Risks and alternatives of this type of sedation and procedure discussed with: RISK/ALTERNATIVES: Patient H & P ON CHART H & P H & P on chart and reviewed for co-morbid conditions and appropriate labs. H&P ON CHART: Yes STATUS PREG STATUS ASSESSED: N/A MEDS/ALLERGIES REVIEWED Meds/Allergies Reviewed Medications and Allergies including time and route of recently administered narcotics and sedatives. MEDS/ALLERGIES REVIEWED: Yes ASA RATING ASA RATING: III AIRWAY ASSESSMENT Airway Assessment Airway patency, oral function limitations, presence of caps, crowns, dentures, partials, and ability to extend neck assessed. AIRWAY ASSESSMENT: Yes MALLAMPATI SCORE MALLAMPATI SCORE: II PRE-SEDATION ASSESSMENT PRE-SEDATION ASSESSMENT: Yes MARK COLLAZO MD Jul 20, 2016 14:05
--- NOTE | 2016-07-20 14:08 | PDOC ---
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 Drain/Tubes Drains/Tubes 14F locking pigtail right chest tube----to PleurEvac Condition of Patient Condition of Patient Stable. No apparent complication. Disposition Disposition From IR/CT return to 500. Chest tube to wall suction at -20cm H2O. F/u with Dr Dominguez for pleurodesis. Full report to follow. MARK COLLAZO MD Jul 20, 2016 14:08
--- NOTE | 2016-07-20 15:04 | PDOC ---
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 Dx made at [facility] on06/13/2016 at bronchoscopy He has uncontrolled cough with chest pain, SOB with any exertion. 20 pound weight loss from 120 to100 pounds, fatigue. In bed most of the day. CT here at [facility] our department just done shows central right lung mass with airway occlusion, collapsed lung and significant effusion. Effusion was not noted on [facility] report from 05/2016. Outside CT has been requested to be placed in our PACS system. MRI head and Bone scan and CT abd at [facility] show no occult metastatic disease. Plan: Admit to hospitalist service. IVF hydration, cough suppression, Resp therapy to assess desaturation with exertion. Consider thoracentesis by IR. Began palliative radiation tomorrow as inpatient. Patient agrees to admit and to have DNR and DNI status Dr Quinones to assess for consideration of systemic treatment. Currently low PS makes me inclined to pursue palliative radiation alone for current time and consider chemo to follow chest radiation. WILLARD RANGEL MD, JAY S MD Jul 20, 2016 15:04
--- NOTE | 2016-07-20 15:13 | PDOC ---
Provider Note Provider Note 60 yo man with stage I11 (T4 N2 M0) adenocarcinoma of right lung. Repeat CT scan following admission here reveals increased right pleural effusion vs 05/30 CT at [facility]. Also a likely metastatic lesion seen in left adrenal gland. Now s/p thoracentesis and CT placement. Breathing better and feeling a bit better. Code status DNR DNI made which was I also discussed with patient prior to admission. Planned to begin palliative chest radiation today but thoracentesis competed with our treatment time. We will begin chest radiation tomorrow. Laurie Cortes has met with patient and family to initiate palliative treatment plan which may include hospice depending on consideration of chemo that ma follow radiation treatment. Dr Quinones to see in follow up after radiation. He concurs that he is too fragile for combined treatment at this time and supports radiation alone for now. WILLARD RANGEL MD Jul 20, 2016 15:13
--- NOTE | 2016-07-20 16:57 | RAD ---
EXAM: Chest one view. HISTORY: Chest tube placement. COMPARISON: 07/19/2016. FINDINGS: A frontal view of the chest is obtained. A loop drain is now noted in the right base. There is no pneumothorax. The right apex remains opacified. A component of loculated pleural effusion persists laterally. The left lung is hyperinflated but clear. The heart is not enlarged. IMPRESSION: 1. No pneumothorax status post right pleural drainage. A loculated component of the right pleural effusion persists laterally. 2. Persistent opacification and volume loss of the right apex, and infiltrate in the residual aerated portion of the right lower lobe.
[2016-07-21 03:00] VITALS: BP 92/60
[2016-07-21] MEDS: HYDROCODONE/APAP 5/325MG TABLET. PO PRN ×5 (03:42→23:37)
[2016-07-21] MEDS: HEPARIN PF for SUB-Q USE 5,000 UNIT/0.5 ML VIAL. SQ SCH (05:37)
[2016-07-21 07:00] VITALS: BP 93/62
--- NOTE | 2016-07-21 07:46 | RAD ---
CT-guided diagnostic right thoracentesis, followed by chest tube insertion Indication: 60-year-old male with right lung cancer and with very large, loculated, presumably malignant right pleural effusion. Image guided thoracentesis, followed by chest tube placement for pleurodesis, has been requested by pulmonary. Anesthesia: 17 minutes moderate sedation was provided utilizing a total of 2 mg Versed and 100 mcg fentanyl, IV. The patient was appropriately monitored by a qualified independent observer throughout the time of moderate sedation. Procedure: Informed consent was obtained from the patient. He was placed supine on the CT scanner. Preliminary noncontrast CT images confirmed the presence of a large, multiloculated right pleural effusion. A skin site suitable for CT-guided thoracentesis was selected and marked along the lateral aspect of lower right hemithorax. That area was prepped and draped in the usual sterile fashion. Using aseptic technique, local anesthesia, and CT guidance, a micropuncture sheath was successfully introduced into the low right lateral pleural space. This sheath was then exchanged over a guidewire for a 6 Tanzanian drainage catheter. Approximately 100 cc of serosanguineous-hazy right pleural fluid was then easily removed, and was submitted to the clinical laboratory per referring acquisition consultant request. The 6 Tanzanian drainage catheter was then removed over a guidewire. The percutaneous tract was dilated and a 14 Tanzanian locking pigtail right chest tube was advanced toward right posterior costophrenic angle. Completion CT images documented satisfactory position of the chest tube, which was connected to Pleur-evac, and was secured at the skin exit site utilizing suture and sterile dressing. Patient tolerated the procedure well without apparent location. Impression: Successful, uneventful CT-guided diagnostic right thoracentesis, followed by chest tube insertion, as described. PQRS compliance statement: One or more of the following individualized dose reduction techniques was utilized for this CT procedure: 1. Automated exposure control. 2. Adjustment of MA and/or KV according to patient size. 3. Iterative reconstruction technique.
[2016-07-21] MEDS: IPRATRPIUM/ALBUTEROL 0.5/2.5MG 3 ML NEBU. NEB SCH ×4 (07:53→19:22)
[2016-07-21] MEDS: BUDESONIDE 0.5 MG/2 ML NEBU NEB SCH ×2 (07:53→19:22)
[2016-07-21] MEDS: MULTIVITAMIN with MINERAL TABLET. PO SCH (07:55)
--- NOTE | 2016-07-21 08:33 | PDOC ---
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 with hilar and mediastinal lymphadenopathy, right pleural effusion and left adrenal gland mets ROS - dyspnea better Objective Objective Vital Signs Date Time Temp Pulse Resp B/P Pulse Ox O2 Delivery O2 Flow Rate FiO2 07/21/16 07:59 32 99 Room Air 2.0 07/21/16 07:00 96.7 86 93/62 96.7 Intake and Output 07/21/16 07:00 Intake Total 350 ml Output Total 4940 ml Balance -4590 ml Intake Oral 250 ml IV Total 100 ml Output Urine Total 750 ml Chest Tube Drainage Total 4190 ml Physical Exam Heart: Normal S1, Normal S2 General: Alert, Oriented X3 Lungs: Clear to auscultation Psych/Mental Status: Mental status NL Assessment Assessment Problems Medical Problems: (1) Lung cancer Status: Acute Assessment and Plan: 1. 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 CT is suggestive of stage 4 cancer. His performance status is poor. However he does wish to try treatments and he would quit treatment if he cannot tolerate it. I have recommended palliative care consult. I d/w Dr Francisco. Agree to start palliative radiation 07/21/2016 for 10 days. F/u with me in 2 weeks to evaluate his functional status to see if he would be eligible for chemotherapy. Please call if needed. Not enough tissue available for EGFR/ALK/ROS-1 and PD-L1 markers. 2. Weight loss secondary to malignancy 3. Right-sided chest pain due to malignancy. 4. Moderate-large right effusion and post-obstructive collapse RUL/ adrenal mets. Appreciate pulm consult. s/p right chest tube 07/20/16. Possible pleurodesis. I d/ w IR and atleast 2000 cc fluid noted. I requested cytology. Comment Review of Relevant I have reviewed the following items peter (where applicable) has been applied. Labs Laboratory Tests Test 07/19/16 14:05 07/20/16 03:10 White Blood Count 17.1x10^3/uL (4.0-11.0) 17.1x10^3/uL (4.0-11.0) Red Blood Count 3.93x10^6/uL (4.30-5.70) 3.82x10^6/uL (4.30-5.70) Hemoglobin 10.2g/dL (13.0-17.5) 10.1g/dL (13.0-17.5) Hematocrit 32.6% (39.0-53.0) 31.6% (39.0-53.0) Mean Corpuscular Volume 83fL (79-100) 83fL (79-100) Mean Corpuscular Hemoglobin 26pg (25-35) 26pg (25-35) Mean Corpuscular Hemoglobin Concent 32g/dL (31-37) 32g/dL (31-37) Red Cell Distribution Width 15.4% (11.5-14.5) 15.0% (11.5-14.5) Platelet Count 295x10^3/uL (140-400) 282x10^3/uL (140-400) Neutrophils (%) (Auto) 82% (31-73) 85% (31-73) Lymphocytes (%) (Auto) 7% (24-48) 6% (24-48) Monocytes (%) (Auto) 11% (0-9) 9% (0-9) Eosinophils (%) (Auto) 0% (0-3) 0% (0-3) Basophils (%) (Auto) 0% (0-3) 0% (0-3) Neutrophils # (Auto) 14.1x10^3uL (1.8-7.7) 14.5x10^3uL (1.8-7.7) Lymphocytes # (Auto) 1.2x10^3/uL (1.0-4.8) 1.0x10^3/uL (1.0-4.8) Monocytes # (Auto) 1.8x10^3/uL (0.0-1.1) 1.5x10^3/uL (0.0-1.1) Eosinophils # (Auto) 0.0x10^3/uL (0.0-0.7) 0.0x10^3/uL (0.0-0.7) Basophils # (Auto) 0.0x10^3/uL (0.0-0.2) 0.0x10^3/uL (0.0-0.2) Prothrombin Time 16.9SEC (11.7-14.0) Prothromb Time International Ratio 1.5 (0.8-1.1) Sodium Level 136mmol/L (136-145) 135mmol/L (136-145) Potassium Level 4.2mmol/L (3.5-5.1) 4.2mmol/L (3.5-5.1) Chloride Level 101mmol/L (98-107) 100mmol/L (98-107) Carbon Dioxide Level 31mmol/L (21-32) 29mmol/L (21-32) Anion Gap 4 (6-14) 6 (6-14) Blood Urea Nitrogen 23mg/dL (8-26) 15mg/dL (8-26) Creatinine 1.1mg/dL (0.7-1.3) 1.0mg/dL (0.7-1.3) Estimated GFR (Cockcroft-Gault) 82.3 91.9 Glucose Level 151mg/dL (70-99) 175mg/dL (70-99) Calcium Level 8.5mg/dL (8.5-10.1) 8.7mg/dL (8.5-10.1) Segmented Neutrophils % 84% (35-66) Lymphocytes % 8% (24-48) Monocytes % 8% (0-10) Platelet Estimate Adequate (ADEQUATE) Phosphorus Level 2.6mg/dL (2.6-4.7) Magnesium Level 2.1mg/dL (1.8-2.4) Total Bilirubin 0.4mg/dL (0.2-1.0) Direct Bilirubin 0.2mg/dL (0.0-0.2) Aspartate Amino Transf (AST/SGOT) 12U/L (15-37) Alanine Aminotransferase (ALT/SGPT) 10U/L (16-63) Alkaline Phosphatase 63U/L (46-116) Total Protein 6.8g/dL (6.4-8.2) Albumin 1.6g/dL (3.4-5.0) Microbiology 07/20/16 Gram Stain - Final, Complete Medications Current Medications Sodium Chloride (Iv Sodium Chloride 0.9% 1000ml Bag) 1,000 ml @ 100 mls/hr Q10H IV Last administered on 07/19/16 14:47; Start 07/19/16 at 12:19; Stop at 22:18; Status DC Ondansetron HCl (Zofran) 4 mg PRN Q6HRS PRN IV NAUSEA/VOMITING Last administered on 07/19/16 15:15; Start 07/19/16 at 12:30 Morphine Sulfate 2 mg PRN Q1HR PRN IV PAIN; Start 07/19/16 at 12:30 Acetaminophen/ Hydrocodone Bitart (Lortab 5/325) 1 tab PRN Q4HRS PRN PO MILD PAIN Last administered on 07/21/16 07:59; Start 07/19/16 at 12:30 Acetaminophen (Tylenol) 650 mg PRN Q6HRS PRN PO MILD PAIN / TEMP Last administered on 07/20/16 10:03; Start 07/19/16 at 12:30 Magnesium Hydroxide (Milk Of Magnesia) 2,400 mg PRN Q12HR PRN PO CONSTIPATION; Start 07/19/16 at 12:30 Heparin Sodium (Porcine) 5000 unit 5,000 unit Q8HRS SQ Last administered on 07/19 20:28; Start 07/19/16 at 14:00 Levofloxacin/ Dextrose (LEVAQUIN 500mg PREMIX) 100 ml @ 100 mls/hr Q24H IV Last administered on 07/20/16 14:46; Start 07/19/16 at 15:30 Albuterol/ Ipratropium (Duoneb) 3 ml RTQID NEB Last administered on 07/21/16 07:53; Start 07/19/16 at 16:00 Albuterol Sulfate (Ventolin Neb Soln) 2.5 mg PRN Q4HRS PRN NEB SHORTNESS OF BREATH; Start 07/19/16 at 16:00 Iohexol (Omnipaque 300 Mg/ml) 75 ml 1X ONCE IV Last administered on 07/19/16 16:23; Start 07/19/16 at 16:15; Stop 07/19/16 at 16:16; Status DC Info (Do NOT chart on this entry -- for MONITORING) 1 each PRN DAILY PRN MC SEE COMMENTS; Start 07/19/16 at 16:15; Stop 07/21/16 at 16:14 Enoxaparin Sodium (Lovenox Per Pharmacy Prophylaxis Dosing) 1 each PRN DAILY PRN MC SEE COMMENTS; Start 07/20/16 at 08:15; Status Cancel Multivitamins (Thera M Plus) 1 tab DAILY PO Last administered on 07/21/16 07: 55; Start 07/20/16 at 09:00 Budesonide (Pulmicort) 0.5 mg RTBID NEB Last administered on 07/21/16 07:53; Start 07/20/16 at 08:15 Enoxaparin Sodium (Lovenox 40mg Syringe) 40 mg Q24H SQ ; Start 07/20/16 at 09:00 ; Status Cancel Lidocaine/Sodium Bicarbonate (Buffered Lidocaine 1%) 20 ml STK-MED ONCE IJ ; Start 07/20/16 at 13:16; Stop 07/20/16 at 13:17; Status DC Midazolam HCl (Versed) 2 mg STK-MED ONCE .ROUTE ; Start 07/20/16 at 13:35; Stop 07/20/16 at 13:36; Status DC Fentanyl Citrate (Fentanyl 2ml Vial) 100 mcg STK-MED ONCE .ROUTE ; Start at 13:35; Stop 07/20/16 at 13:36; Status DC Lidocaine/Sodium Bicarbonate (Buffered Lidocaine 1%) 20 ml 1X ONCE IJ Last administered on 07/20/16 14:00; Start 07/20/16 at 14:00; Stop 07/20/16 at 14:01; Status DC Midazolam HCl (Versed) 2 mg 1X ONCE IV Last administered on 07/20/16 14:00; Start 07/20/16 at 14:00; Stop 07/20/16 at 14:01; Status DC Fentanyl Citrate (Fentanyl 2ml Vial) 100 mcg 1X ONCE IV Last administered on 14:00; Start 07/20/16 at 14:00; Stop 07/20/16 at 14:01; Status DC Vitals/I & O Vital Sign - Last 24 Hours 07/20/16 07/20/16 07/20/16 07/20/16 10:02 11:00 11:02 11:53 Temp 100.2 100.2 Pulse 81 Resp 20 20 20 B/P 98/67 Pulse Ox 94 93 O2 Delivery Room Air Room Air Room Air 07/20/16 07/20/16 07/20/16 07/20/16 11:54 13:48 13:50 13:55 Pulse 74 74 70 Resp 16 16 16 O2 Delivery Room Air Nasal Cannula Nasal Cannula Nasal Cannula O2 Flow Rate 2.0 2.0 2.0 07/20/16 07/20/16 07/20/16 07/20/16 13:59 14:00 14:43 15:22 Temp 97.5 97.5 Pulse 69 75 86 Resp 16 16 20 20 B/P 103/73 116/84 Pulse Ox 100 100 100 100 O2 Delivery Nasal Cannula Nasal Cannula Nasal Cannula O2 Flow Rate 2.0 2.0 2.0 07/20/16 07/20/16 07/20/16 07/20/16 15:27 16:00 16:36 17:30 Temp 98.8 98.8 Pulse 102 91 98 Resp 20 20 20 B/P 91/63 89/65 95/64 Pulse Ox 98 98 98 O2 Delivery Room Air Room Air Room Air Room Air 07/20/16 07/20/16 07/20/16 07/20/16 18:30 19:18 19:18 20:00 Pulse 97 Resp 20 B/P 89/61 Pulse Ox 96 99 99 O2 Delivery Room Air Room Air Room Air Room Air O2 Flow Rate 2.0 07/20/16 07/20/16 07/21/16 07/21/16 21:03 23:00 03:00 03:42 Temp 97.8 98.2 97.8 98.2 Pulse 84 83 Resp 19 21 B/P 98/63 92/60 Pulse Ox 99 97 95 97 O2 Delivery Room Air Room Air Room Air Room Air O2 Flow Rate 2.0 2.0 07/21/16 07/21/16 07/21/16 07/21/16 04:42 07:00 07:54 07:59 Temp 96.7 96.7 Pulse 86 Resp 18 32 B/P 93/62 Pulse Ox 97 95 99 99 O2 Delivery Room Air Room Air Room Air Room Air O2 Flow Rate 2.0 2.0 Intake and Output 07/20/16 07/20/16 07/21/16 15:00 23:00 07:00 Intake Total 250 ml 100 ml Output Total 4190 ml 750 ml Balance 250 ml -4190 ml -650 ml Nutrition Consultation Dietary Evaluation: Recommendations by RD: Increase Calorie Intake, Protein supplementation Comments: Ensure strawberry flavor TID - 350kcal and 20g protein Expected Outcomes/Goals: meet >75% est nutr needs Interpretation of weight loss: >7.5% in 3 months Malnutrition Findings: Food and Nutrition Intake (Mod: <75% est energy req 7days Body Fat Depletion (Non Severe: Mild Depletion Weight Status: Underweight ALEXANDER BRIGGS MD Jul 21, 2016 08:33
[2016-07-21] MEDS: ENOXAPARIN 40 MG/0.4 ML DISP.SYRIN. SQ SCH (09:00)
--- NOTE | 2016-07-21 09:00 | RAD ---
Portable chest, 07/21/2016: History: Follow-up effusion Comparison is made to yesterday's study. A pigtail pleural drain in the right lower chest is unchanged. There are unchanged persistent pleural opacities laterally and superior in the right compatible with residual pleural fluid, perhaps loculated. There is considerable underlying atelectasis and infiltrate in the right lung. The patient's known right hilar mass is obscured by this infiltrate. There is persistent volume loss on the right with [id number] shift of the heart and mediastinum. There is scarring over the left apex. The left chest is otherwise clear. No left-sided pleural fluid is seen. No new abnormality is detected. IMPRESSION: No significant change since yesterday's exam.
--- NOTE | 2016-07-21 10:16 | PDOC ---
PULMONARY PROGRESS NOTES Subjective no soa Vitals Vital Signs Date Time Temp Pulse Resp B/P Pulse Ox O2 Delivery O2 Flow Rate FiO2 07/21/16 08:59 20 95 Room Air 07/21/16 07:59 2.0 07/21/16 07:00 96.7 86 93/62 96.7 General: Alert, No acute distress Lungs: Wheezing, Other (dull bases, right dull, poor volume) Cardiovascular: S1 Abdomen: Soft Neuro Exam: Alert Extremities: No Edema Skin: Warm Labs Laboratory Tests Test 07/19/16 14:05 07/20/16 03:10 White Blood Count 17.1x10^3/uL (4.0-11.0) 17.1x10^3/uL (4.0-11.0) Red Blood Count 3.93x10^6/uL (4.30-5.70) 3.82x10^6/uL (4.30-5.70) Hemoglobin 10.2g/dL (13.0-17.5) 10.1g/dL (13.0-17.5) Hematocrit 32.6% (39.0-53.0) 31.6% (39.0-53.0) Mean Corpuscular Volume 83fL (79-100) 83fL (79-100) Mean Corpuscular Hemoglobin 26pg (25-35) 26pg (25-35) Mean Corpuscular Hemoglobin Concent 32g/dL (31-37) 32g/dL (31-37) Red Cell Distribution Width 15.4% (11.5-14.5) 15.0% (11.5-14.5) Platelet Count 295x10^3/uL (140-400) 282x10^3/uL (140-400) Neutrophils (%) (Auto) 82% (31-73) 85% (31-73) Lymphocytes (%) (Auto) 7% (24-48) 6% (24-48) Monocytes (%) (Auto) 11% (0-9) 9% (0-9) Eosinophils (%) (Auto) 0% (0-3) 0% (0-3) Basophils (%) (Auto) 0% (0-3) 0% (0-3) Neutrophils # (Auto) 14.1x10^3uL (1.8-7.7) 14.5x10^3uL (1.8-7.7) Lymphocytes # (Auto) 1.2x10^3/uL (1.0-4.8) 1.0x10^3/uL (1.0-4.8) Monocytes # (Auto) 1.8x10^3/uL (0.0-1.1) 1.5x10^3/uL (0.0-1.1) Eosinophils # (Auto) 0.0x10^3/uL (0.0-0.7) 0.0x10^3/uL (0.0-0.7) Basophils # (Auto) 0.0x10^3/uL (0.0-0.2) 0.0x10^3/uL (0.0-0.2) Prothrombin Time 16.9SEC (11.7-14.0) Prothromb Time International Ratio 1.5 (0.8-1.1) Sodium Level 136mmol/L (136-145) 135mmol/L (136-145) Potassium Level 4.2mmol/L (3.5-5.1) 4.2mmol/L (3.5-5.1) Chloride Level 101mmol/L (98-107) 100mmol/L (98-107) Carbon Dioxide Level 31mmol/L (21-32) 29mmol/L (21-32) Anion Gap 4 (6-14) 6 (6-14) Blood Urea Nitrogen 23mg/dL (8-26) 15mg/dL (8-26) Creatinine 1.1mg/dL (0.7-1.3) 1.0mg/dL (0.7-1.3) Estimated GFR (Cockcroft-Gault) 82.3 91.9 Glucose Level 151mg/dL (70-99) 175mg/dL (70-99) Calcium Level 8.5mg/dL (8.5-10.1) 8.7mg/dL (8.5-10.1) Segmented Neutrophils % 84% (35-66) Lymphocytes % 8% (24-48) Monocytes % 8% (0-10) Platelet Estimate Adequate (ADEQUATE) Phosphorus Level 2.6mg/dL (2.6-4.7) Magnesium Level 2.1mg/dL (1.8-2.4) Total Bilirubin 0.4mg/dL (0.2-1.0) Direct Bilirubin 0.2mg/dL (0.0-0.2) Aspartate Amino Transf (AST/SGOT) 12U/L (15-37) Alanine Aminotransferase (ALT/SGPT) 10U/L (16-63) Alkaline Phosphatase 63U/L (46-116) Total Protein 6.8g/dL (6.4-8.2) Albumin 1.6g/dL (3.4-5.0) Impression . 1. 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 Now admitted with dehydration and fever. 2. Postobstructive pneumonia, which was also best visualized on CT chest from [facility]. 3. Moderate to large right pleural effusion, most likely malignant. 4. Fever secondary to postobstructive pneumonia. 5. Marked weight loss due to malignancy. 7. Underlying chronic obstructive pulmonary disease. Plan . 1. large hilar mass with moderate-large right effusion and post-obstructive collapse RUL/ adrenal mets. s/p right chest tube without much lung expansion. Doubt would benefit from pleurodesis. Proceed with radiation to see if lung expands 2. IV fluids. 3. empiric antibiotics. 4. Follow up with Dr. Francisco regarding radiation. 5. Follow up with Dr. Quinones 6. Improve nutritional status. 7. Prognosis guarded GUSTAVO COLLAZO MD Jul 21, 2016 10:16
[2016-07-21 11:00] VITALS: BP 96/65
--- NOTE | 2016-07-21 11:27 | PDOC2 ---
PALLIATIVE CARE Palliative Care Note Palliative Care Met with patient and family; sons Alphonso Eder, dtr Gloria and nephew Kenneth. Patient declined to have medical condition reviewed. Does not want to hear anything negative. "I already know" Discussed AD. Patient would like to complete AD Patient currently DNR/DNI. Will address outside the Hospital form after meeting Children are supportive and see the reality of Stage IV Lung cancer. Nephew wants patient to continue "fighting" and encouraging full aggressive care including full code. After meeting spoke with Gloria and Hector. Questions answered about Hospice and when that would be appropriate. Provided list. Patient lives with "mistress" Arline. Children do not go to patient's home. They are encouraging him to get his affairs in order. PLan: Radiation Treatments--Palliative --x 10 treatments. Chest tube in place. Continue PT/OT. Patient has medicaid only so will not be able to go to [facility] Complete AD, Evelyn will assist incompleting this document. Follow up with Dr. Quinones 2 weeks to see if chemotherapy is an options HAILE REYNOLDS Jul 21, 2016 11:27
[2016-07-21] MEDS: ACETAMINOPHEN 325 MG TABLET. PO PRN ×2 (12:32→18:22)
--- NOTE | 2016-07-21 13:17 | PDOC ---
PROGRESS NOTES Chief Complaint Chief Complaint 1. 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 sepsis 3. post-obstructive pneumonia, w. pleural effusion, compression 4. severe malnutrition w/ weight 5. mild coagulopathy maybe nutritional, MVI 6. anemia of chronic disease 7. leukocytosis, sepsis, plan: 1. on chest tube, no pleurodesis as per pulm lung not expanded with Chest tube 2. fu with onco, no chemo fu with RT, will do palliative RT 3. PAT consulted dvt ppx pleural effusion result pending on levaquin as per pulm benadryl for sleep poor prognosis History of Present Illness History of Present Illness salt for food, nutrition consult, poor PO intake, not sleeping well, not 2/2 sob or chest pain Vitals Vitals Vital Signs Date Time Temp Pulse Resp B/P Pulse Ox O2 Delivery O2 Flow Rate FiO2 07/21/16 12:32 95 Room Air 07/21/16 11:00 99.2 101 20 96/65 99.2 07/21/16 07:59 2.0 Physical Exam General: Alert, Oriented X3 Heart: Normal S1, Normal S2 Lungs: Other (dull bases, right dull, poor volume) Abdomen: Normal bowel sounds, Soft Extremities: No cyanosis, Other (extensive nail clubbing) Skin: No breakdown Review of Systems Review of Systems no fever, chills, mild + sob and chest pain Assessment and Plan Assessmemt and Plan Problems Medical Problems: (1) Lung cancer Status: Acute Problems: Comment Review of Relevant I have reviewed the following items peter (where applicable) has been applied. Labs Laboratory Tests Test 07/19/16 14:05 07/20/16 03:10 White Blood Count 17.1x10^3/uL (4.0-11.0) 17.1x10^3/uL (4.0-11.0) Red Blood Count 3.93x10^6/uL (4.30-5.70) 3.82x10^6/uL (4.30-5.70) Hemoglobin 10.2g/dL (13.0-17.5) 10.1g/dL (13.0-17.5) Hematocrit 32.6% (39.0-53.0) 31.6% (39.0-53.0) Mean Corpuscular Volume 83fL (79-100) 83fL (79-100) Mean Corpuscular Hemoglobin 26pg (25-35) 26pg (25-35) Mean Corpuscular Hemoglobin Concent 32g/dL (31-37) 32g/dL (31-37) Red Cell Distribution Width 15.4% (11.5-14.5) 15.0% (11.5-14.5) Platelet Count 295x10^3/uL (140-400) 282x10^3/uL (140-400) Neutrophils (%) (Auto) 82% (31-73) 85% (31-73) Lymphocytes (%) (Auto) 7% (24-48) 6% (24-48) Monocytes (%) (Auto) 11% (0-9) 9% (0-9) Eosinophils (%) (Auto) 0% (0-3) 0% (0-3) Basophils (%) (Auto) 0% (0-3) 0% (0-3) Neutrophils # (Auto) 14.1x10^3uL (1.8-7.7) 14.5x10^3uL (1.8-7.7) Lymphocytes # (Auto) 1.2x10^3/uL (1.0-4.8) 1.0x10^3/uL (1.0-4.8) Monocytes # (Auto) 1.8x10^3/uL (0.0-1.1) 1.5x10^3/uL (0.0-1.1) Eosinophils # (Auto) 0.0x10^3/uL (0.0-0.7) 0.0x10^3/uL (0.0-0.7) Basophils # (Auto) 0.0x10^3/uL (0.0-0.2) 0.0x10^3/uL (0.0-0.2) Prothrombin Time 16.9SEC (11.7-14.0) Prothromb Time International Ratio 1.5 (0.8-1.1) Sodium Level 136mmol/L (136-145) 135mmol/L (136-145) Potassium Level 4.2mmol/L (3.5-5.1) 4.2mmol/L (3.5-5.1) Chloride Level 101mmol/L (98-107) 100mmol/L (98-107) Carbon Dioxide Level 31mmol/L (21-32) 29mmol/L (21-32) Anion Gap 4 (6-14) 6 (6-14) Blood Urea Nitrogen 23mg/dL (8-26) 15mg/dL (8-26) Creatinine 1.1mg/dL (0.7-1.3) 1.0mg/dL (0.7-1.3) Estimated GFR (Cockcroft-Gault) 82.3 91.9 Glucose Level 151mg/dL (70-99) 175mg/dL (70-99) Calcium Level 8.5mg/dL (8.5-10.1) 8.7mg/dL (8.5-10.1) Segmented Neutrophils % 84% (35-66) Lymphocytes % 8% (24-48) Monocytes % 8% (0-10) Platelet Estimate Adequate (ADEQUATE) Phosphorus Level 2.6mg/dL (2.6-4.7) Magnesium Level 2.1mg/dL (1.8-2.4) Total Bilirubin 0.4mg/dL (0.2-1.0) Direct Bilirubin 0.2mg/dL (0.0-0.2) Aspartate Amino Transf (AST/SGOT) 12U/L (15-37) Alanine Aminotransferase (ALT/SGPT) 10U/L (16-63) Alkaline Phosphatase 63U/L (46-116) Total Protein 6.8g/dL (6.4-8.2) Albumin 1.6g/dL (3.4-5.0) Microbiology 07/20/16 Gram Stain - Final, Complete Medications Current Medications Sodium Chloride (Iv Sodium Chloride 0.9% 1000ml Bag) 1,000 ml @ 100 mls/hr Q10H IV Last administered on 07/19/16 14:47; Start 07/19/16 at 12:19; Stop at 22:18; Status DC Ondansetron HCl (Zofran) 4 mg PRN Q6HRS PRN IV NAUSEA/VOMITING Last administered on 07/19/16 15:15; Start 07/19/16 at 12:30 Morphine Sulfate 2 mg PRN Q1HR PRN IV PAIN; Start 07/19/16 at 12:30 Acetaminophen/ Hydrocodone Bitart (Lortab 5/325) 1 tab PRN Q4HRS PRN PO MILD PAIN Last administered on 07/21/16 12:32; Start 07/19/16 at 12:30 Acetaminophen (Tylenol) 650 mg PRN Q6HRS PRN PO MILD PAIN / TEMP Last administered on 07/21/16 12:32; Start 07/19/16 at 12:30 Magnesium Hydroxide (Milk Of Magnesia) 2,400 mg PRN Q12HR PRN PO CONSTIPATION; Start 07/19/16 at 12:30 Heparin Sodium (Porcine) 5000 unit 5,000 unit Q8HRS SQ Last administered on 07/19 20:28; Start 07/19/16 at 14:00; Stop 07/21/16 at 08:43; Status DC Levofloxacin/ Dextrose (LEVAQUIN 500mg PREMIX) 100 ml @ 100 mls/hr Q24H IV Last administered on 07/20/16 14:46; Start 07/19/16 at 15:30 Albuterol/ Ipratropium (Duoneb) 3 ml RTQID NEB Last administered on 07/21/16 07:53; Start 07/19/16 at 16:00 Albuterol Sulfate (Ventolin Neb Soln) 2.5 mg PRN Q4HRS PRN NEB SHORTNESS OF BREATH; Start 07/19/16 at 16:00 Iohexol (Omnipaque 300 Mg/ml) 75 ml 1X ONCE IV Last administered on 07/19/16 16:23; Start 07/19/16 at 16:15; Stop 07/19/16 at 16:16; Status DC Info (Do NOT chart on this entry -- for MONITORING) 1 each PRN DAILY PRN MC SEE COMMENTS; Start 07/19/16 at 16:15; Stop 07/21/16 at 16:14 Enoxaparin Sodium (Lovenox Per Pharmacy Prophylaxis Dosing) 1 each PRN DAILY PRN MC SEE COMMENTS; Start 07/20/16 at 08:15; Status Cancel Multivitamins (Thera M Plus) 1 tab DAILY PO Last administered on 07/21/16 07: 55; Start 07/20/16 at 09:00 Budesonide (Pulmicort) 0.5 mg RTBID NEB Last administered on 07/21/16 07:53; Start 07/20/16 at 08:15 Enoxaparin Sodium (Lovenox 40mg Syringe) 40 mg Q24H SQ ; Start 07/20/16 at 09:00 ; Status Cancel Lidocaine/Sodium Bicarbonate (Buffered Lidocaine 1%) 20 ml STK-MED ONCE IJ ; Start 07/20/16 at 13:16; Stop 07/20/16 at 13:17; Status DC Midazolam HCl (Versed) 2 mg STK-MED ONCE .ROUTE ; Start 07/20/16 at 13:35; Stop 07/20/16 at 13:36; Status DC Fentanyl Citrate (Fentanyl 2ml Vial) 100 mcg STK-MED ONCE .ROUTE ; Start at 13:35; Stop 07/20/16 at 13:36; Status DC Lidocaine/Sodium Bicarbonate (Buffered Lidocaine 1%) 20 ml 1X ONCE IJ Last administered on 07/20/16 14:00; Start 07/20/16 at 14:00; Stop 07/20/16 at 14:01; Status DC Midazolam HCl (Versed) 2 mg 1X ONCE IV Last administered on 07/20/16 14:00; Start 07/20/16 at 14:00; Stop 07/20/16 at 14:01; Status DC Fentanyl Citrate (Fentanyl 2ml Vial) 100 mcg 1X ONCE IV Last administered on 14:00; Start 07/20/16 at 14:00; Stop 07/20/16 at 14:01; Status DC Enoxaparin Sodium (Lovenox 40mg Syringe) 40 mg Q24H SQ ; Start 07/21/16 at 09:00 Vitals/I & O Vital Sign - Last 24 Hours 07/20/16 07/20/16 07/20/16 07/20/16 13:48 13:50 13:55 13:59 Pulse 74 74 70 69 Resp 16 16 16 16 Pulse Ox 100 O2 Delivery Nasal Cannula Nasal Cannula Nasal Cannula O2 Flow Rate 2.0 2.0 2.0 07/20/16 07/20/16 07/20/16 07/20/16 14:00 14:43 15:22 15:27 Temp 97.5 97.5 Pulse 75 86 Resp 16 20 20 B/P 103/73 116/84 Pulse Ox 100 100 100 O2 Delivery Nasal Cannula Nasal Cannula Nasal Cannula Room Air O2 Flow Rate 2.0 2.0 2.0 07/20/16 07/20/16 07/20/16 07/20/16 16:00 16:36 17:30 18:30 Temp 98.8 98.8 Pulse 102 91 98 97 Resp 20 20 20 20 B/P 91/63 89/65 95/64 89/61 Pulse Ox 98 98 98 96 O2 Delivery Room Air Room Air Room Air Room Air 07/20/16 07/20/16 07/20/16 07/20/16 19:18 19:18 20:00 21:03 Pulse Ox 99 99 99 O2 Delivery Room Air Room Air Room Air Room Air O2 Flow Rate 2.0 2.0 07/20/16 07/21/16 07/21/16 07/21/16 23:00 03:00 03:42 04:42 Temp 97.8 98.2 97.8 98.2 Pulse 84 83 Resp 19 21 B/P 98/63 92/60 Pulse Ox 97 95 97 O2 Delivery Room Air Room Air Room Air O2 Flow Rate 2.0 2.0 07/21/16 07/21/16 07/21/16 07/21/16 07:00 07:54 07:59 08:00 Temp 96.7 96.7 Pulse 86 Resp 18 32 B/P 93/62 Pulse Ox 95 99 99 O2 Delivery Room Air Room Air Room Air Room Air O2 Flow Rate 2.0 07/21/16 07/21/16 07/21/16 08:59 11:00 12:32 Temp 99.2 99.2 Pulse 101 Resp 20 20 B/P 96/65 Pulse Ox 95 95 95 O2 Delivery Room Air Room Air Room Air Intake and Output 07/20/16 07/20/16 07/21/16 15:00 23:00 07:00 Intake Total 250 ml 100 ml Output Total 4190 ml 750 ml Balance 250 ml -4190 ml -650 ml Nutrition Consultation Dietary Evaluation: Recommendations by RD: Increase Calorie Intake, Protein supplementation Comments: Ensure strawberry flavor TID - 350kcal and 20g protein Expected Outcomes/Goals: meet >75% est nutr needs Interpretation of weight loss: >7.5% in 3 months Malnutrition Findings: Food and Nutrition Intake (Mod: <75% est energy req 7days Body Fat Depletion (Non Severe: Mild Depletion Weight Status: Underweight KRISTI GOMEZ MD Jul 21, 2016 13:17
[2016-07-21] MEDS: ONDANSETRON PF 4 MG/2 ML VIAL. IV PRN (13:21)
[2016-07-21] MEDS ORDERED: DIPHENHYDRAMINE HCL 25 MG CAPSULE PO PRN (13:30)
--- NOTE | 2016-07-21 14:28 | PATHOLOGY ---
CYTOPATHOLOGY REPORT CLINICAL HISTORY: Right pleural effusion. SPECIMEN(S) RECEIVED: A.Pleural fluid, Right FINAL DIAGNOSIS: Right pleural fluid, ThinPrep and cell block: MALIGNANT CELLS IDENTIFIED HAVING CELLULAR FEATURES CONSISTENT WITH ADENOCARCINOMA. COMMENT: There are malignant cells identified within a background of acute and chronic inflammatory cells. The malignant cells are largely present singly. The malignant cells are large, and possess enlarged nuclei containing prominent nucleoli. The cytologic features are consistent with adenocarcinoma. The patient reportedly has a history of adenocarcinoma of lung. (JPM:; d/t: 07/21/16) PATHOLOGIST: Sherry Adamson M.D. REPORT ELECTRONICALLY SIGNED BY: Sherry Adamson M.D. DATE/TIME: 07/21/2016 14:27 GROSS PATHOLOGY: A. Pleural fluid, Right: The specimen is submitted unfixed, labeled "Sherry Guillen". Received by the Cytology Department is 40 mL of cloudy orange fluid. One ThinPrep slide and a cell block were prepared. (clt 07.20.2016) FIELD PROJECT MANAGER(S): DALIA Adams(ASCP) INITIAL CPT CODE(S): A; 47425, 53769, 08658 Professional services performed by [facility] at [address] [address] Technical services performed by [email or web address] at [address] [place] [address], [address], [place] [address]. PROCEDURE REPORT (Order Date: 07/25/2016 00:00) INTERPRETATION: The slides were marked for testing, and sent at the request of Dr. Ariel Norman. PD-L1 by [facility] testing was performed by [facility] on block A1. Please see SCANNED IMAGES under LABORATORY for separate report of results. (JPM:saundra; d/t: 07/28/2016) COMMENT: PATHOLOGIST: Sherry Adamson M.D. REPORT ELECTRONICALLY SIGNED BY: Sherry Adamson M.D. DATE/TIME: 07/28/2016 15:35 PATIENT: SHERRY GUILLEN /AGE: 7 1955 (Age: 60) SEX: M PATIENT #: [id number] ALT CASE #: SPECIMEN COLLECTION DATE: 07/20/2016 SPECIMEN RECEIVED DATE: 07/20/2016 [facility] [id number] [facility], [address] [place] [address] PHONE: [phone] DIRECTOR: Dustin Cárdenas M.D. * * * END OF REPORT * * *
[2016-07-21 15:00] VITALS: BP 94/63
--- NOTE | 2016-07-21 15:24 | PDOC ---
Provider Note Provider Note Feeling better following thoracentesis. Has ongoing active drainage from chest tube. He had a family discussion regarding diagnosis, palliative nature of treatment and advanced directives. he will remain a DNR DNI for now. Treatment began today will resume Sunday07/24/2016. Await cytology eval of pleural effusion. WILLARD RANGEL MD Jul 21, 2016 15:24
[2016-07-21 19:00] VITALS: BP 91/61
[2016-07-21 23:00] VITALS: BP 98/64
[2016-07-22 03:00] VITALS: BP 98/70
[2016-07-22 05:33] LABS: BASO % 0 % (0-3); EOS % 1 % (0-3); HEMATOCRIT 27.4 % (39.0-53.0); HEMOGLOBIN 8.8 g/dL (13.0-17.5); LYMPH # 1.3 x10^3/uL (1.0-4.8); LYMPH % 6 % (24-48); MEAN CORPUSCULAR HEMOGLOBIN 26 pg (25-35); MEAN CORPUSCULAR HGB CONC 32 g/dL (31-37); MEAN CORPUSCULAR VOLUME 82 fL (79-100); MONO % 7 % (0-9); NEUT % 86 % (31-73); PLATELET COUNT 302 x10^3/uL (140-400); RED BLOOD COUNT 3.32 x10^6/uL (4.30-5.70); RED CELL DISTRIBUTION WIDTH 15.1 % (11.5-14.5); WHITE BLOOD COUNT 20.3 x10^3/uL (4.0-11.0)
[2016-07-22 05:47] LABS: CALCIUM 8.2 mg/dL (8.5-10.1); CREATININE 0.8 mg/dL (0.7-1.3); GFR 118.9; POTASSIUM 4.5 mmol/L (3.5-5.1)
[2016-07-22 07:05] VITALS: BP 105/68
[2016-07-22] MEDS: BUDESONIDE 0.5 MG/2 ML NEBU NEB SCH ×2 (07:09→20:02)
[2016-07-22] MEDS: IPRATRPIUM/ALBUTEROL 0.5/2.5MG 3 ML NEBU. NEB SCH ×4 (07:09→20:02)
[2016-07-22] MEDS: MULTIVITAMIN with MINERAL TABLET. PO SCH (08:11)
[2016-07-22] MEDS: ENOXAPARIN 40 MG/0.4 ML DISP.SYRIN. SQ SCH (08:11)
[2016-07-22] MEDS: HYDROCODONE/APAP 5/325MG TABLET. PO PRN ×2 (08:11→15:22)
--- NOTE | 2016-07-22 08:58 | RAD ---
Exam performed: One view chest. History: Pleural effusion, patient with chest tube. Date of service: 07/22/16. Comparison: 07/21/16. Single AP upright portable view chest findings: There is continued near opacification of right hemithorax with signs of volume loss. Some aeration of the right lung base is noted. There is a right-sided chest tube in place. Patient's known right hilar mass is obscured by the infiltrate/effusion. The left lung remains expanded and clear. There is mild [id number] midline shift of the hilar structures. Impression: No significant interval change in near complete opacification of the right hemithorax and signs of volume loss. Right-sided pigtail catheter remains in similar position.
[2016-07-22 10:05] VITALS: BP 81/47
[2016-07-22] MEDS ORDERED: IV NORMAL SALINE 500ML BAG 500 ML IV ONE (10:15)
--- NOTE | 2016-07-22 12:23 | PDOC ---
PULMONARY PROGRESS NOTES Subjective no soa Vitals Vital Signs Date Time Temp Pulse Resp B/P Pulse Ox O2 Delivery O2 Flow Rate FiO2 07/22/16 10:53 96 Room Air 07/22/16 10:05 98.2 95 18 81/47 98.2 07/21/16 07:59 2.0 General: Alert, No acute distress Lungs: Other (decrease bs right) Cardiovascular: S1 Abdomen: Soft Neuro Exam: Alert Extremities: No Edema Skin: Warm Labs Laboratory Tests Test 07/20/16 13:50 07/22/16 04:00 Body Fluid Total Protein 5.1g/dL (.) Body Fluid Lactate Dehydrogenase 427IU/L (.) White Blood Count 20.3x10^3/uL (4.0-11.0) Red Blood Count 3.32x10^6/uL (4.30-5.70) Hemoglobin 8.8g/dL (13.0-17.5) Hematocrit 27.4% (39.0-53.0) Mean Corpuscular Volume 82fL (79-100) Mean Corpuscular Hemoglobin 26pg (25-35) Mean Corpuscular Hemoglobin Concent 32g/dL (31-37) Red Cell Distribution Width 15.1% (11.5-14.5) Platelet Count 302x10^3/uL (140-400) Neutrophils (%) (Auto) 86% (31-73) Lymphocytes (%) (Auto) 6% (24-48) Monocytes (%) (Auto) 7% (0-9) Eosinophils (%) (Auto) 1% (0-3) Basophils (%) (Auto) 0% (0-3) Neutrophils # (Auto) 17.4x10^3uL (1.8-7.7) Lymphocytes # (Auto) 1.3x10^3/uL (1.0-4.8) Monocytes # (Auto) 1.4x10^3/uL (0.0-1.1) Eosinophils # (Auto) 0.2x10^3/uL (0.0-0.7) Basophils # (Auto) 0.0x10^3/uL (0.0-0.2) Sodium Level 138mmol/L (136-145) Potassium Level 4.5mmol/L (3.5-5.1) Chloride Level 102mmol/L (98-107) Carbon Dioxide Level 34mmol/L (21-32) Anion Gap 2 (6-14) Blood Urea Nitrogen 11mg/dL (8-26) Creatinine 0.8mg/dL (0.7-1.3) Estimated GFR (Cockcroft-Gault) 118.9 Glucose Level 128mg/dL (70-99) Calcium Level 8.2mg/dL (8.5-10.1) Laboratory Tests Test 07/22/16 04:00 White Blood Count 20.3x10^3/uL (4.0-11.0) Red Blood Count 3.32x10^6/uL (4.30-5.70) Hemoglobin 8.8g/dL (13.0-17.5) Hematocrit 27.4% (39.0-53.0) Mean Corpuscular Volume 82fL (79-100) Mean Corpuscular Hemoglobin 26pg (25-35) Mean Corpuscular Hemoglobin Concent 32g/dL (31-37) Red Cell Distribution Width 15.1% (11.5-14.5) Platelet Count 302x10^3/uL (140-400) Neutrophils (%) (Auto) 86% (31-73) Lymphocytes (%) (Auto) 6% (24-48) Monocytes (%) (Auto) 7% (0-9) Eosinophils (%) (Auto) 1% (0-3) Basophils (%) (Auto) 0% (0-3) Neutrophils # (Auto) 17.4x10^3uL (1.8-7.7) Lymphocytes # (Auto) 1.3x10^3/uL (1.0-4.8) Monocytes # (Auto) 1.4x10^3/uL (0.0-1.1) Eosinophils # (Auto) 0.2x10^3/uL (0.0-0.7) Basophils # (Auto) 0.0x10^3/uL (0.0-0.2) Sodium Level 138mmol/L (136-145) Potassium Level 4.5mmol/L (3.5-5.1) Chloride Level 102mmol/L (98-107) Carbon Dioxide Level 34mmol/L (21-32) Anion Gap 2 (6-14) Blood Urea Nitrogen 11mg/dL (8-26) Creatinine 0.8mg/dL (0.7-1.3) Estimated GFR (Cockcroft-Gault) 118.9 Glucose Level 128mg/dL (70-99) Calcium Level 8.2mg/dL (8.5-10.1) Impression . 1. 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 Now admitted with dehydration and fever. 2. Postobstructive pneumonia, which was also best visualized on CT chest from [facility]. 3. Moderate to large right pleural effusion, malignant. 4. Fever secondary to postobstructive pneumonia. 5. Marked weight loss due to malignancy. 7. Underlying chronic obstructive pulmonary disease. Plan . 1. large hilar mass with moderate-large right effusion and post-obstructive collapse RUL/ adrenal mets. s/p right chest tube without much lung expansion. Doubt would benefit from pleurodesis as the lung has not expended but may consider it in am .Proceed with radiation to see if lung expands 2. d/w 3. empiric antibiotics. 4. Follow up with Dr. Francisco regarding radiation. 5. Follow up with Dr. Quinones 6. Improve nutritional status. 7. Prognosis guarded GUSTAVO COLLAZO MD Jul 22, 2016 12:22
--- NOTE | 2016-07-22 13:26 | PDOC ---
PROGRESS NOTES Chief Complaint Chief Complaint 1. 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 sepsis 3. post-obstructive pneumonia, w. pleural effusion, compression 4. severe malnutrition w/ weight 5. mild coagulopathy maybe nutritional, MVI 6. anemia of chronic disease 7. leukocytosis, sepsis, plan: 1. on chest tube, no pleurodesis as per pulm lung not expanded with Chest tube 2. fu with onco, no chemo fu with RT, will do palliative RT 3. PAT consulted dvt ppx pleural effusion result pending on levaquin as per pulm benadryl for sleep poor prognosis NS 500cc bolus for low side BP History of Present Illness History of Present Illness salt for food, nutrition consult, poor PO intake, not sleeping well, not 2/2 sob or chest pain + fever, cough mild bp LOW side pleural effusion + malignancy Vitals Vitals Vital Signs Date Time Temp Pulse Resp B/P Pulse Ox O2 Delivery O2 Flow Rate FiO2 07/22/16 10:53 96 Room Air 07/22/16 10:05 98.2 95 18 81/47 98.2 07/21/16 07:59 2.0 Physical Exam General: Alert, Oriented X3 Heart: Normal S1, Normal S2 Lungs: Other (decrease bs right) Abdomen: Normal bowel sounds, Soft Extremities: No cyanosis, Other (extensive nail clubbing) Skin: No breakdown Labs LABS Laboratory Tests Test 07/22/16 04:00 White Blood Count 20.3x10^3/uL (4.0-11.0) Red Blood Count 3.32x10^6/uL (4.30-5.70) Hemoglobin 8.8g/dL (13.0-17.5) Hematocrit 27.4% (39.0-53.0) Mean Corpuscular Volume 82fL (79-100) Mean Corpuscular Hemoglobin 26pg (25-35) Mean Corpuscular Hemoglobin Concent 32g/dL (31-37) Red Cell Distribution Width 15.1% (11.5-14.5) Platelet Count 302x10^3/uL (140-400) Neutrophils (%) (Auto) 86% (31-73) Lymphocytes (%) (Auto) 6% (24-48) Monocytes (%) (Auto) 7% (0-9) Eosinophils (%) (Auto) 1% (0-3) Basophils (%) (Auto) 0% (0-3) Neutrophils # (Auto) 17.4x10^3uL (1.8-7.7) Lymphocytes # (Auto) 1.3x10^3/uL (1.0-4.8) Monocytes # (Auto) 1.4x10^3/uL (0.0-1.1) Eosinophils # (Auto) 0.2x10^3/uL (0.0-0.7) Basophils # (Auto) 0.0x10^3/uL (0.0-0.2) Sodium Level 138mmol/L (136-145) Potassium Level 4.5mmol/L (3.5-5.1) Chloride Level 102mmol/L (98-107) Carbon Dioxide Level 34mmol/L (21-32) Anion Gap 2 (6-14) Blood Urea Nitrogen 11mg/dL (8-26) Creatinine 0.8mg/dL (0.7-1.3) Estimated GFR (Cockcroft-Gault) 118.9 Glucose Level 128mg/dL (70-99) Calcium Level 8.2mg/dL (8.5-10.1) Review of Systems Review of Systems no chills, +sob and chest pain Assessment and Plan Assessmemt and Plan Problems Medical Problems: (1) Lung cancer Status: Acute Problems: Comment Review of Relevant I have reviewed the following items peter (where applicable) has been applied. Labs Laboratory Tests Test 07/20/16 13:50 07/22/16 04:00 Body Fluid Total Protein 5.1g/dL (.) Body Fluid Lactate Dehydrogenase 427IU/L (.) White Blood Count 20.3x10^3/uL (4.0-11.0) Red Blood Count 3.32x10^6/uL (4.30-5.70) Hemoglobin 8.8g/dL (13.0-17.5) Hematocrit 27.4% (39.0-53.0) Mean Corpuscular Volume 82fL (79-100) Mean Corpuscular Hemoglobin 26pg (25-35) Mean Corpuscular Hemoglobin Concent 32g/dL (31-37) Red Cell Distribution Width 15.1% (11.5-14.5) Platelet Count 302x10^3/uL (140-400) Neutrophils (%) (Auto) 86% (31-73) Lymphocytes (%) (Auto) 6% (24-48) Monocytes (%) (Auto) 7% (0-9) Eosinophils (%) (Auto) 1% (0-3) Basophils (%) (Auto) 0% (0-3) Neutrophils # (Auto) 17.4x10^3uL (1.8-7.7) Lymphocytes # (Auto) 1.3x10^3/uL (1.0-4.8) Monocytes # (Auto) 1.4x10^3/uL (0.0-1.1) Eosinophils # (Auto) 0.2x10^3/uL (0.0-0.7) Basophils # (Auto) 0.0x10^3/uL (0.0-0.2) Sodium Level 138mmol/L (136-145) Potassium Level 4.5mmol/L (3.5-5.1) Chloride Level 102mmol/L (98-107) Carbon Dioxide Level 34mmol/L (21-32) Anion Gap 2 (6-14) Blood Urea Nitrogen 11mg/dL (8-26) Creatinine 0.8mg/dL (0.7-1.3) Estimated GFR (Cockcroft-Gault) 118.9 Glucose Level 128mg/dL (70-99) Calcium Level 8.2mg/dL (8.5-10.1) Laboratory Tests Test 07/22/16 04:00 White Blood Count 20.3x10^3/uL (4.0-11.0) Red Blood Count 3.32x10^6/uL (4.30-5.70) Hemoglobin 8.8g/dL (13.0-17.5) Hematocrit 27.4% (39.0-53.0) Mean Corpuscular Volume 82fL (79-100) Mean Corpuscular Hemoglobin 26pg (25-35) Mean Corpuscular Hemoglobin Concent 32g/dL (31-37) Red Cell Distribution Width 15.1% (11.5-14.5) Platelet Count 302x10^3/uL (140-400) Neutrophils (%) (Auto) 86% (31-73) Lymphocytes (%) (Auto) 6% (24-48) Monocytes (%) (Auto) 7% (0-9) Eosinophils (%) (Auto) 1% (0-3) Basophils (%) (Auto) 0% (0-3) Neutrophils # (Auto) 17.4x10^3uL (1.8-7.7) Lymphocytes # (Auto) 1.3x10^3/uL (1.0-4.8) Monocytes # (Auto) 1.4x10^3/uL (0.0-1.1) Eosinophils # (Auto) 0.2x10^3/uL (0.0-0.7) Basophils # (Auto) 0.0x10^3/uL (0.0-0.2) Sodium Level 138mmol/L (136-145) Potassium Level 4.5mmol/L (3.5-5.1) Chloride Level 102mmol/L (98-107) Carbon Dioxide Level 34mmol/L (21-32) Anion Gap 2 (6-14) Blood Urea Nitrogen 11mg/dL (8-26) Creatinine 0.8mg/dL (0.7-1.3) Estimated GFR (Cockcroft-Gault) 118.9 Glucose Level 128mg/dL (70-99) Calcium Level 8.2mg/dL (8.5-10.1) Microbiology 07/20/16 Gram Stain - Final, Complete Medications Current Medications Sodium Chloride (Iv Sodium Chloride 0.9% 1000ml Bag) 1,000 ml @ 100 mls/hr Q10H IV Last administered on 07/19/16 14:47; Start 07/19/16 at 12:19; Stop at 22:18; Status DC Ondansetron HCl (Zofran) 4 mg PRN Q6HRS PRN IV NAUSEA/VOMITING Last administered on 07/21/16 13:21; Start 07/19/16 at 12:30 Morphine Sulfate 2 mg PRN Q1HR PRN IV PAIN Last administered on 07/21/16 20:28 ; Start 07/19/16 at 12:30 Acetaminophen/ Hydrocodone Bitart (Lortab 5/325) 1 tab PRN Q4HRS PRN PO MODEARTE - SEVERE PAIN Last administered on 07/22/16 08:11; Start 07/19/16 at 12 :30 Acetaminophen (Tylenol) 650 mg PRN Q6HRS PRN PO MILD PAIN / TEMP Last administered on 07/21/16 18:22; Start 07/19/16 at 12:30 Magnesium Hydroxide (Milk Of Magnesia) 2,400 mg PRN Q12HR PRN PO CONSTIPATION; Start 07/19/16 at 12:30 Heparin Sodium (Porcine) 5000 unit 5,000 unit Q8HRS SQ Last administered on 07/19 20:28; Start 07/19/16 at 14:00; Stop 07/21/16 at 08:43; Status DC Levofloxacin/ Dextrose (LEVAQUIN 500mg PREMIX) 100 ml @ 100 mls/hr Q24H IV Last administered on 07/21/16 16:28; Start 07/19/16 at 15:30 Albuterol/ Ipratropium (Duoneb) 3 ml RTQID NEB Last administered on 07/22/16 10:49; Start 07/19/16 at 16:00 Albuterol Sulfate (Ventolin Neb Soln) 2.5 mg PRN Q4HRS PRN NEB SHORTNESS OF BREATH; Start 07/19/16 at 16:00 Iohexol (Omnipaque 300 Mg/ml) 75 ml 1X ONCE IV Last administered on 07/19/16 16:23; Start 07/19/16 at 16:15; Stop 07/19/16 at 16:16; Status DC Info (Do NOT chart on this entry -- for MONITORING) 1 each PRN DAILY PRN MC SEE COMMENTS; Start 07/19/16 at 16:15; Stop 07/21/16 at 16:14; Status DC Enoxaparin Sodium (Lovenox Per Pharmacy Prophylaxis Dosing) 1 each PRN DAILY PRN MC SEE COMMENTS; Start 07/20/16 at 08:15; Status Cancel Multivitamins (Thera M Plus) 1 tab DAILY PO Last administered on 07/22/16 08: 11; Start 07/20/16 at 09:00 Budesonide (Pulmicort) 0.5 mg RTBID NEB Last administered on 07/22/16 07:09; Start 07/20/16 at 08:15 Enoxaparin Sodium (Lovenox 40mg Syringe) 40 mg Q24H SQ ; Start 07/20/16 at 09:00 ; Status Cancel Lidocaine/Sodium Bicarbonate (Buffered Lidocaine 1%) 20 ml STK-MED ONCE IJ ; Start 07/20/16 at 13:16; Stop 07/20/16 at 13:17; Status DC Midazolam HCl (Versed) 2 mg STK-MED ONCE .ROUTE ; Start 07/20/16 at 13:35; Stop 07/20/16 at 13:36; Status DC Fentanyl Citrate (Fentanyl 2ml Vial) 100 mcg STK-MED ONCE .ROUTE ; Start at 13:35; Stop 07/20/16 at 13:36; Status DC Lidocaine/Sodium Bicarbonate (Buffered Lidocaine 1%) 20 ml 1X ONCE IJ Last administered on 07/20/16 14:00; Start 07/20/16 at 14:00; Stop 07/20/16 at 14:01; Status DC Midazolam HCl (Versed) 2 mg 1X ONCE IV Last administered on 07/20/16 14:00; Start 07/20/16 at 14:00; Stop 07/20/16 at 14:01; Status DC Fentanyl Citrate (Fentanyl 2ml Vial) 100 mcg 1X ONCE IV Last administered on 14:00; Start 07/20/16 at 14:00; Stop 07/20/16 at 14:01; Status DC Enoxaparin Sodium (Lovenox 40mg Syringe) 40 mg Q24H SQ ; Start 07/21/16 at 09:00 Diphenhydramine HCl 25 mg 25 mg PRN Q6HRS PRN PO ITCHING; Start 07/21/16 at 13: 30 Sodium Chloride (Iv Sodium Chloride 0.9% 500ml Bag) 500 ml @ 500 mls/hr 1X ONCE IV Last administered on 07/22/16 10:24; Start 07/22/16 at 10:15; Stop 03/30 at 11:14; Status DC Vitals/I & O Vital Sign - Last 24 Hours 07/21/16 07/21/16 07/21/16 07/21/16 13:32 15:00 15:40 15:40 Temp 102.0 100.0 102.0 100.0 Pulse 101 Resp 20 B/P 94/63 Pulse Ox 95 89 O2 Delivery Room Air Room Air 07/21/16 07/21/16 07/21/16 07/21/16 18:23 19:00 19:21 19:23 Temp 99.1 99.1 Pulse 88 Resp 20 20 20 B/P 91/61 Pulse Ox 95 96 96 O2 Delivery Room Air Room Air Room Air 07/21/16 07/21/16 07/21/16 07/21/16 20:28 20:33 21:00 23:00 Temp 97.5 97.5 Pulse 88 Resp 18 18 20 B/P 98/64 Pulse Ox 90 O2 Delivery Room Air Room Air Room Air Room Air 07/21/16 07/22/16 07/22/16 07/22/16 23:37 03:00 07:05 07:10 Temp 98.1 99.9 98.1 99.9 Pulse 77 88 Resp 20 18 B/P 98/70 105/68 Pulse Ox 95 95 96 O2 Delivery Room Air Room Air Room Air Room Air 07/22/16 07/22/16 07/22/16 07/22/16 08:00 08:11 09:42 10:05 Temp 98.2 98.2 Pulse 95 Resp 18 B/P 81/47 Pulse Ox 96 O2 Delivery Room Air Room Air Room Air Room Air 07/22/16 10:53 Pulse Ox 96 O2 Delivery Room Air Intake and Output 07/21/16 07/21/16 07/22/16 15:00 23:00 07:00 Intake Total 500 ml 850 ml 300 ml Output Total 1450 ml Balance 500 ml 850 ml -1150 ml Nutrition Consultation Dietary Evaluation: Recommendations by RD: Increase Calorie Intake, Protein supplementation Comments: Ensure strawberry flavor TID - 350kcal and 20g protein Expected Outcomes/Goals: meet >75% est nutr needs Interpretation of weight loss: >7.5% in 3 months Malnutrition Findings: Food and Nutrition Intake (Mod: <75% est energy req 7days Body Fat Depletion (Non Severe: Mild Depletion Weight Status: Underweight KRISTI GOMEZ MD Jul 22, 2016 13:26
[2016-07-22 14:50] VITALS: BP 94/57
[2016-07-22 19:00] VITALS: BP 109/72
[2016-07-22 23:00] VITALS: BP 120/80
[2016-07-23 03:29] VITALS: BP 115/71
[2016-07-23] MEDS: HYDROCODONE/APAP 5/325MG TABLET. PO PRN (03:32)
[2016-07-23 07:00] VITALS: BP 109/72
[2016-07-23] MEDS: IPRATRPIUM/ALBUTEROL 0.5/2.5MG 3 ML NEBU. NEB SCH ×4 (07:36→19:55)
[2016-07-23] MEDS: BUDESONIDE 0.5 MG/2 ML NEBU NEB SCH ×2 (07:36→19:55)
--- NOTE | 2016-07-23 08:27 | RAD ---
EXAM: Chest one view. HISTORY: Pleural effusion, chest tube. COMPARISON: 07/22/2016. FINDINGS: A frontal view of the chest is obtained. A right basilar pleural drain remains in place. The right hemithorax is mostly opacified with a small amount of aerated lung in the right base. This indicates a combination of atelectasis and a large pleural effusion. This has progressed since the prior study. The left lung remains clear. There is no pneumothorax. The heart is not enlarged. There are atherosclerotic calcifications of the aorta. IMPRESSION: 1. The right pleural effusion appears to have increased slightly since the prior study.
[2016-07-23] MEDS: ENOXAPARIN 40 MG/0.4 ML DISP.SYRIN. SQ SCH (09:00)
[2016-07-23] MEDS ORDERED: GUAIFENESIN 200 MG/10 ML LIQUID. PO PRN (09:30)
[2016-07-23 09:36] LABS: BASO % 0 % (0-3); EOS % 1 % (0-3); HEMATOCRIT 26.7 % (39.0-53.0); HEMOGLOBIN 8.4 g/dL (13.0-17.5); LYMPH # 0.9 x10^3/uL (1.0-4.8); LYMPH % 5 % (24-48); MEAN CORPUSCULAR HEMOGLOBIN 27 pg (25-35); MEAN CORPUSCULAR HGB CONC 32 g/dL (31-37); MEAN CORPUSCULAR VOLUME 84 fL (79-100); MONO % 6 % (0-9); NEUT % 88 % (31-73); PLATELET COUNT 319 x10^3/uL (140-400); RED BLOOD COUNT 3.18 x10^6/uL (4.30-5.70); WHITE BLOOD COUNT 17.3 x10^3/uL (4.0-11.0)
[2016-07-23] MEDS: GUAIFENESIN ER 600 MG TABLET.ER PO SCH ×2 (09:50→19:25)
[2016-07-23] MEDS: OXYCODONE/APAP 5/325 TABLET. PO PRN ×3 (09:50→19:25)
[2016-07-23] MEDS: MULTIVITAMIN with MINERAL TABLET. PO SCH (09:50)
[2016-07-23 10:44] VITALS: BP 108/65
--- NOTE | 2016-07-23 11:13 | PDOC ---
PULMONARY PROGRESS NOTES Subjective no soa Vitals Vital Signs Date Time Temp Pulse Resp B/P Pulse Ox O2 Delivery O2 Flow Rate FiO2 07/23/16 10:54 Room Air 07/23/16 10:44 96.5 98 18 108/65 97 96.5 07/22/16 15:22 2.0 General: Alert, No acute distress Lungs: Other (decrease bs right) Cardiovascular: S1 Abdomen: Soft Neuro Exam: Alert Extremities: No Edema Skin: Warm Labs Laboratory Tests Test 07/22/16 04:00 07/23/16 09:15 White Blood Count 20.3x10^3/uL (4.0-11.0) 17.3x10^3/uL (4.0-11.0) Red Blood Count 3.32x10^6/uL (4.30-5.70) 3.18x10^6/uL (4.30-5.70) Hemoglobin 8.8g/dL (13.0-17.5) 8.4g/dL (13.0-17.5) Hematocrit 27.4% (39.0-53.0) 26.7% (39.0-53.0) Mean Corpuscular Volume 82fL (79-100) 84fL (79-100) Mean Corpuscular Hemoglobin 26pg (25-35) 27pg (25-35) Mean Corpuscular Hemoglobin Concent 32g/dL (31-37) 32g/dL (31-37) Red Cell Distribution Width 15.1% (11.5-14.5) 15.0% (11.5-14.5) Platelet Count 302x10^3/uL (140-400) 319x10^3/uL (140-400) Neutrophils (%) (Auto) 86% (31-73) 88% (31-73) Lymphocytes (%) (Auto) 6% (24-48) 5% (24-48) Monocytes (%) (Auto) 7% (0-9) 6% (0-9) Eosinophils (%) (Auto) 1% (0-3) 1% (0-3) Basophils (%) (Auto) 0% (0-3) 0% (0-3) Neutrophils # (Auto) 17.4x10^3uL (1.8-7.7) 15.2x10^3uL (1.8-7.7) Lymphocytes # (Auto) 1.3x10^3/uL (1.0-4.8) 0.9x10^3/uL (1.0-4.8) Monocytes # (Auto) 1.4x10^3/uL (0.0-1.1) 1.0x10^3/uL (0.0-1.1) Eosinophils # (Auto) 0.2x10^3/uL (0.0-0.7) 0.1x10^3/uL (0.0-0.7) Basophils # (Auto) 0.0x10^3/uL (0.0-0.2) 0.0x10^3/uL (0.0-0.2) Sodium Level 138mmol/L (136-145) Potassium Level 4.5mmol/L (3.5-5.1) Chloride Level 102mmol/L (98-107) Carbon Dioxide Level 34mmol/L (21-32) Anion Gap 2 (6-14) Blood Urea Nitrogen 11mg/dL (8-26) Creatinine 0.8mg/dL (0.7-1.3) Estimated GFR (Cockcroft-Gault) 118.9 Glucose Level 128mg/dL (70-99) Calcium Level 8.2mg/dL (8.5-10.1) Laboratory Tests Test 07/23/16 09:15 White Blood Count 17.3x10^3/uL (4.0-11.0) Red Blood Count 3.18x10^6/uL (4.30-5.70) Hemoglobin 8.4g/dL (13.0-17.5) Hematocrit 26.7% (39.0-53.0) Mean Corpuscular Volume 84fL (79-100) Mean Corpuscular Hemoglobin 27pg (25-35) Mean Corpuscular Hemoglobin Concent 32g/dL (31-37) Red Cell Distribution Width 15.0% (11.5-14.5) Platelet Count 319x10^3/uL (140-400) Neutrophils (%) (Auto) 88% (31-73) Lymphocytes (%) (Auto) 5% (24-48) Monocytes (%) (Auto) 6% (0-9) Eosinophils (%) (Auto) 1% (0-3) Basophils (%) (Auto) 0% (0-3) Neutrophils # (Auto) 15.2x10^3uL (1.8-7.7) Lymphocytes # (Auto) 0.9x10^3/uL (1.0-4.8) Monocytes # (Auto) 1.0x10^3/uL (0.0-1.1) Eosinophils # (Auto) 0.1x10^3/uL (0.0-0.7) Basophils # (Auto) 0.0x10^3/uL (0.0-0.2) Impression . 1. 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 Now admitted with dehydration and fever. 2. Postobstructive pneumonia, which was also best visualized on CT chest from [facility]. 3. Moderate to large right pleural effusion, malignant. 4. Fever secondary to postobstructive pneumonia.resolved 5. Marked weight loss due to malignancy. 7. Underlying chronic obstructive pulmonary disease. Plan . 1. Recent ct chest with large hilar mass with moderate-large right effusion and post-obstructive collapse RUL/ adrenal mets. s/p right chest tube without much lung expansion. Doubt would benefit from pleurodesis as the lung has not expended . will removed tube today .Proceed with radiation to see if lung expands 2. d/w 3. empiric antibiotics. 4. Follow up with Dr. Francisco regarding radiation. 5. Follow up with Dr. Quinones 6. Improve nutritional status. 7. Prognosis guarded GUSTAVO COLLAZO MD Jul 23, 2016 11:13
--- NOTE | 2016-07-23 12:28 | PDOC ---
PROGRESS NOTES Chief Complaint Chief Complaint 1. 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 sepsis 3. obstructive pneumonia, w. pleural effusion, compression 4. severe malnutrition w/ weight 5. mild coagulopathy maybe nutritional, MVI 6. anemia of chronic disease 7. leukocytosis, sepsis, 8 pleural effusion +malignancy plan: 1. on chest tube, no pleurodesis as per pulm lung not expanded with Chest tube 2. fu with onco, no chemo fu with RT, will do palliative RT 3. PAT consulted, family meeting on Sunday dvt ppx pleural effusion result pending on levaquin as per pulm benadryl for sleep poor prognosis NS 500cc bolus for low side BP Chest tube removal on 07/23 as per pulm, cont RT tmr. hope to dc tmr History of Present Illness History of Present Illness salt for food, nutrition consult, poor PO intake, not sleeping well, not 2/2 sob or chest pain + fever, cough mild bp LOW side pleural effusion + malignancy chest tube 120cc overnight Vitals Vitals Vital Signs Date Time Temp Pulse Resp B/P Pulse Ox O2 Delivery O2 Flow Rate FiO2 07/23/16 11:24 Room Air 07/23/16 10:44 96.5 98 18 108/65 97 96.5 07/22/16 15:22 2.0 Physical Exam General: Alert, Oriented X3 Heart: Normal S1, Normal S2 Lungs: Other (decrease bs right) Abdomen: Normal bowel sounds, Soft Extremities: No cyanosis, Other (extensive nail clubbing) Skin: No breakdown Labs LABS Laboratory Tests Test 07/23/16 09:15 White Blood Count 17.3x10^3/uL (4.0-11.0) Red Blood Count 3.18x10^6/uL (4.30-5.70) Hemoglobin 8.4g/dL (13.0-17.5) Hematocrit 26.7% (39.0-53.0) Mean Corpuscular Volume 84fL (79-100) Mean Corpuscular Hemoglobin 27pg (25-35) Mean Corpuscular Hemoglobin Concent 32g/dL (31-37) Red Cell Distribution Width 15.0% (11.5-14.5) Platelet Count 319x10^3/uL (140-400) Neutrophils (%) (Auto) 88% (31-73) Lymphocytes (%) (Auto) 5% (24-48) Monocytes (%) (Auto) 6% (0-9) Eosinophils (%) (Auto) 1% (0-3) Basophils (%) (Auto) 0% (0-3) Neutrophils # (Auto) 15.2x10^3uL (1.8-7.7) Lymphocytes # (Auto) 0.9x10^3/uL (1.0-4.8) Monocytes # (Auto) 1.0x10^3/uL (0.0-1.1) Eosinophils # (Auto) 0.1x10^3/uL (0.0-0.7) Basophils # (Auto) 0.0x10^3/uL (0.0-0.2) Review of Systems Review of Systems no fever, chills, chest pain Assessment and Plan Assessmemt and Plan Problems Medical Problems: (1) Lung cancer Status: Acute Problems: Comment Review of Relevant I have reviewed the following items peter (where applicable) has been applied. Labs Laboratory Tests Test 07/22/16 04:00 07/23/16 09:15 White Blood Count 20.3x10^3/uL (4.0-11.0) 17.3x10^3/uL (4.0-11.0) Red Blood Count 3.32x10^6/uL (4.30-5.70) 3.18x10^6/uL (4.30-5.70) Hemoglobin 8.8g/dL (13.0-17.5) 8.4g/dL (13.0-17.5) Hematocrit 27.4% (39.0-53.0) 26.7% (39.0-53.0) Mean Corpuscular Volume 82fL (79-100) 84fL (79-100) Mean Corpuscular Hemoglobin 26pg (25-35) 27pg (25-35) Mean Corpuscular Hemoglobin Concent 32g/dL (31-37) 32g/dL (31-37) Red Cell Distribution Width 15.1% (11.5-14.5) 15.0% (11.5-14.5) Platelet Count 302x10^3/uL (140-400) 319x10^3/uL (140-400) Neutrophils (%) (Auto) 86% (31-73) 88% (31-73) Lymphocytes (%) (Auto) 6% (24-48) 5% (24-48) Monocytes (%) (Auto) 7% (0-9) 6% (0-9) Eosinophils (%) (Auto) 1% (0-3) 1% (0-3) Basophils (%) (Auto) 0% (0-3) 0% (0-3) Neutrophils # (Auto) 17.4x10^3uL (1.8-7.7) 15.2x10^3uL (1.8-7.7) Lymphocytes # (Auto) 1.3x10^3/uL (1.0-4.8) 0.9x10^3/uL (1.0-4.8) Monocytes # (Auto) 1.4x10^3/uL (0.0-1.1) 1.0x10^3/uL (0.0-1.1) Eosinophils # (Auto) 0.2x10^3/uL (0.0-0.7) 0.1x10^3/uL (0.0-0.7) Basophils # (Auto) 0.0x10^3/uL (0.0-0.2) 0.0x10^3/uL (0.0-0.2) Sodium Level 138mmol/L (136-145) Potassium Level 4.5mmol/L (3.5-5.1) Chloride Level 102mmol/L (98-107) Carbon Dioxide Level 34mmol/L (21-32) Anion Gap 2 (6-14) Blood Urea Nitrogen 11mg/dL (8-26) Creatinine 0.8mg/dL (0.7-1.3) Estimated GFR (Cockcroft-Gault) 118.9 Glucose Level 128mg/dL (70-99) Calcium Level 8.2mg/dL (8.5-10.1) Laboratory Tests Test 07/23/16 09:15 White Blood Count 17.3x10^3/uL (4.0-11.0) Red Blood Count 3.18x10^6/uL (4.30-5.70) Hemoglobin 8.4g/dL (13.0-17.5) Hematocrit 26.7% (39.0-53.0) Mean Corpuscular Volume 84fL (79-100) Mean Corpuscular Hemoglobin 27pg (25-35) Mean Corpuscular Hemoglobin Concent 32g/dL (31-37) Red Cell Distribution Width 15.0% (11.5-14.5) Platelet Count 319x10^3/uL (140-400) Neutrophils (%) (Auto) 88% (31-73) Lymphocytes (%) (Auto) 5% (24-48) Monocytes (%) (Auto) 6% (0-9) Eosinophils (%) (Auto) 1% (0-3) Basophils (%) (Auto) 0% (0-3) Neutrophils # (Auto) 15.2x10^3uL (1.8-7.7) Lymphocytes # (Auto) 0.9x10^3/uL (1.0-4.8) Monocytes # (Auto) 1.0x10^3/uL (0.0-1.1) Eosinophils # (Auto) 0.1x10^3/uL (0.0-0.7) Basophils # (Auto) 0.0x10^3/uL (0.0-0.2) Microbiology 07/20/16 Gram Stain - Final, Complete Medications Current Medications Sodium Chloride (Iv Sodium Chloride 0.9% 1000ml Bag) 1,000 ml @ 100 mls/hr Q10H IV Last administered on 07/19/16 14:47; Start 07/19/16 at 12:19; Stop at 22:18; Status DC Ondansetron HCl (Zofran) 4 mg PRN Q6HRS PRN IV NAUSEA/VOMITING Last administered on 07/21/16 13:21; Start 07/19/16 at 12:30 Morphine Sulfate 2 mg PRN Q1HR PRN IV PAIN Last administered on 07/21/16 20:28 ; Start 07/19/16 at 12:30 Acetaminophen/ Hydrocodone Bitart (Lortab 5/325) 1 tab PRN Q4HRS PRN PO MODEARTE - SEVERE PAIN Last administered on 07/23/16 03:32; Start 07/19/16 at 12 :30; Stop 07/23/16 at 08:24; Status DC Acetaminophen (Tylenol) 650 mg PRN Q6HRS PRN PO MILD PAIN / TEMP Last administered on 07/21/16 18:22; Start 07/19/16 at 12:30 Magnesium Hydroxide (Milk Of Magnesia) 2,400 mg PRN Q12HR PRN PO CONSTIPATION; Start 07/19/16 at 12:30 Heparin Sodium (Porcine) 5000 unit 5,000 unit Q8HRS SQ Last administered on 07/19 20:28; Start 07/19/16 at 14:00; Stop 07/21/16 at 08:43; Status DC Levofloxacin/ Dextrose (LEVAQUIN 500mg PREMIX) 100 ml @ 100 mls/hr Q24H IV Last administered on 07/22/16 15:59; Start 07/19/16 at 15:30 Albuterol/ Ipratropium (Duoneb) 3 ml RTQID NEB Last administered on 07/23/16 11:23; Start 07/19/16 at 16:00 Albuterol Sulfate (Ventolin Neb Soln) 2.5 mg PRN Q4HRS PRN NEB SHORTNESS OF BREATH; Start 07/19/16 at 16:00 Iohexol (Omnipaque 300 Mg/ml) 75 ml 1X ONCE IV Last administered on 07/19/16 16:23; Start 07/19/16 at 16:15; Stop 07/19/16 at 16:16; Status DC Info (Do NOT chart on this entry -- for MONITORING) 1 each PRN DAILY PRN MC SEE COMMENTS; Start 07/19/16 at 16:15; Stop 07/21/16 at 16:14; Status DC Enoxaparin Sodium (Lovenox Per Pharmacy Prophylaxis Dosing) 1 each PRN DAILY PRN MC SEE COMMENTS; Start 07/20/16 at 08:15; Status Cancel Multivitamins (Thera M Plus) 1 tab DAILY PO Last administered on 07/23/16 09: 50; Start 07/20/16 at 09:00 Budesonide (Pulmicort) 0.5 mg RTBID NEB Last administered on 07/23/16 07:36; Start 07/20/16 at 08:15 Enoxaparin Sodium (Lovenox 40mg Syringe) 40 mg Q24H SQ ; Start 07/20/16 at 09:00 ; Status Cancel Lidocaine/Sodium Bicarbonate (Buffered Lidocaine 1%) 20 ml STK-MED ONCE IJ ; Start 07/20/16 at 13:16; Stop 07/20/16 at 13:17; Status DC Midazolam HCl (Versed) 2 mg STK-MED ONCE .ROUTE ; Start 07/20/16 at 13:35; Stop 07/20/16 at 13:36; Status DC Fentanyl Citrate (Fentanyl 2ml Vial) 100 mcg STK-MED ONCE .ROUTE ; Start at 13:35; Stop 07/20/16 at 13:36; Status DC Lidocaine/Sodium Bicarbonate (Buffered Lidocaine 1%) 20 ml 1X ONCE IJ Last administered on 07/20/16 14:00; Start 07/20/16 at 14:00; Stop 07/20/16 at 14:01; Status DC Midazolam HCl (Versed) 2 mg 1X ONCE IV Last administered on 07/20/16 14:00; Start 07/20/16 at 14:00; Stop 07/20/16 at 14:01; Status DC Fentanyl Citrate (Fentanyl 2ml Vial) 100 mcg 1X ONCE IV Last administered on 14:00; Start 07/20/16 at 14:00; Stop 07/20/16 at 14:01; Status DC Enoxaparin Sodium (Lovenox 40mg Syringe) 40 mg Q24H SQ ; Start 07/21/16 at 09:00 Diphenhydramine HCl 25 mg 25 mg PRN Q6HRS PRN PO ITCHING; Start 07/21/16 at 13: 30 Sodium Chloride (Iv Sodium Chloride 0.9% 500ml Bag) 500 ml @ 500 mls/hr 1X ONCE IV Last administered on 07/22/16 10:24; Start 07/22/16 at 10:15; Stop 03/30 at 11:14; Status DC Oxycodone/ Acetaminophen (Percocet 5/325) 1 tab PRN Q4HRS PRN PO MODERATE - SEVERE PAIN Last administered on 07/23/16 09:50; Start 07/23/16 at 08:30 Guaifenesin (Mucinex) 600 mg BID PO Last administered on 3/12/17at 09:50; Start 07/23/16 at 10:30 Guaifenesin (Robitussin) 200 mg PRN Q4HRS PRN PO COUGH; Start 07/23/16 at 09:30 Vitals/I & O Vital Sign - Last 24 Hours 07/22/16 07/22/16 07/22/16 07/22/16 14:50 15:22 15:59 19:00 Temp 100.6 97.7 100.6 97.7 Pulse 93 94 Resp 18 20 B/P 94/57 109/72 Pulse Ox 95 95 95 98 O2 Delivery Room Air Room Air Room Air Room Air O2 Flow Rate 2.0 07/22/16 07/22/16 07/22/16 07/22/16 19:05 20:03 20:03 23:00 Temp 99.1 99.1 Pulse 72 Resp 20 B/P 120/80 Pulse Ox 96 96 98 O2 Delivery Room Air Room Air Room Air Room Air 07/23/16 07/23/16 07/23/16 07/23/16 03:29 03:32 04:18 07:00 Temp 100.6 97.9 100.6 97.9 Pulse 107 95 Resp 20 18 16 18 B/P 115/71 109/72 Pulse Ox 95 95 95 96 O2 Delivery Room Air Room Air Room Air Room Air 07/23/16 07/23/16 07/23/16 07/23/16 07:36 08:15 09:50 10:44 Temp 96.5 96.5 Pulse 98 Resp 18 B/P 108/65 Pulse Ox 96 97 O2 Delivery Room Air Room Air Room Air Room Air 07/23/16 07/23/16 10:54 11:24 O2 Delivery Room Air Room Air Intake and Output 07/22/16 07/22/16 07/23/16 15:00 23:00 07:00 Intake Total 1280 ml 340 ml 560 ml Output Total 1475 ml 1180 ml 540 ml Balance -195 ml -840 ml 20 ml Nutrition Consultation Dietary Evaluation: Recommendations by RD: Increase Calorie Intake, Protein supplementation Comments: Ensure strawberry flavor TID - 350kcal and 20g protein Expected Outcomes/Goals: meet >75% est nutr needs Interpretation of weight loss: >7.5% in 3 months Malnutrition Findings: Food and Nutrition Intake (Mod: <75% est energy req 7days Body Fat Depletion (Non Severe: Mild Depletion Weight Status: Underweight KRISTI GOMEZ MD Jul 23, 2016 12:27
[2016-07-23 14:20] VITALS: BP 108/65
[2016-07-23] MEDS ORDERED: POLYVINYL ALCOHOL 1.4% OPHTH SOLUTION 15ML BOTTLE. OU PRN (14:30)
[2016-07-23 19:00] VITALS: BP 100/68
[2016-07-23 22:57] VITALS: BP 110/68
[2016-07-24 04:47] LABS: BASO % 0 % (0-3); EOS % 1 % (0-3); HEMATOCRIT 28.1 % (39.0-53.0); LYMPH # 1.1 x10^3/uL (1.0-4.8); LYMPH % 6 % (24-48); MEAN CORPUSCULAR HEMOGLOBIN 27 pg (25-35); MEAN CORPUSCULAR HGB CONC 32 g/dL (31-37); MEAN CORPUSCULAR VOLUME 83 fL (79-100); MONO % 7 % (0-9); NEUT % 86 % (31-73); PLATELET COUNT 381 x10^3/uL (140-400); RED BLOOD COUNT 3.37 x10^6/uL (4.30-5.70); RED CELL DISTRIBUTION WIDTH 15.2 % (11.5-14.5); WHITE BLOOD COUNT 18.2 x10^3/uL (4.0-11.0)
[2016-07-24] MEDS: OXYCODONE/APAP 5/325 TABLET. PO PRN ×3 (06:07→19:40)
[2016-07-24 07:00] VITALS: BP 93/66
[2016-07-24] MEDS: IPRATRPIUM/ALBUTEROL 0.5/2.5MG 3 ML NEBU. NEB SCH ×4 (07:08→20:20)
[2016-07-24] MEDS: BUDESONIDE 0.5 MG/2 ML NEBU NEB SCH ×2 (07:09→20:20)
--- NOTE | 2016-07-24 08:54 | RAD ---
Portable chest, 07/24/2016: History: Effusion Comparison is made to a study from 07/23/2016. The right pleural drain has been removed. There is considerable ongoing pleural thickening on the right compatible with multiloculated pleural fluid. There is underlying atelectasis and consolidation in the right lung. These findings are unchanged. There is persistent [id number] shift of the heart and mediastinum. The left chest remains clear. No left-sided pleural fluid or pneumothorax is seen. IMPRESSION: 1. Interval removal of the right pleural drain. 2. No other significant change since yesterday's study.
[2016-07-24] MEDS: ENOXAPARIN 40 MG/0.4 ML DISP.SYRIN. SQ SCH (09:00)
[2016-07-24] MEDS: MULTIVITAMIN with MINERAL TABLET. PO SCH (09:01)
[2016-07-24] MEDS: GUAIFENESIN ER 600 MG TABLET.ER PO SCH ×2 (09:01→19:40)
[2016-07-24 11:00] VITALS: BP 100/57
--- NOTE | 2016-07-24 11:57 | PDOC ---
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 Patient asking for one more day in the hospital. Is planning on radiation today. Had a fever last night of 100.4. Temp has come down to 98.9. Reports that he has not been sleeping well, but that the Benadryl has been helpful. Vitals Vitals Vital Signs Date Time Temp Pulse Resp B/P Pulse Ox O2 Delivery O2 Flow Rate FiO2 07/24/16 11:00 98.9 90 100/57 96 Room Air 98.9 07/24/16 07:00 16 Physical Exam General: Alert, Oriented X3 Heart: Normal S1, Normal S2 Lungs: Other (decrease bs R) Abdomen: Normal bowel sounds, Soft Extremities: No cyanosis, Other (extensive nail clubbing) Skin: No breakdown Labs LABS Laboratory Tests Test 07/24/16 03:55 White Blood Count 18.2x10^3/uL (4.0-11.0) Red Blood Count 3.37x10^6/uL (4.30-5.70) Hemoglobin 9.0g/dL (13.0-17.5) Hematocrit 28.1% (39.0-53.0) Mean Corpuscular Volume 83fL (79-100) Mean Corpuscular Hemoglobin 27pg (25-35) Mean Corpuscular Hemoglobin Concent 32g/dL (31-37) Red Cell Distribution Width 15.2% (11.5-14.5) Platelet Count 381x10^3/uL (140-400) Neutrophils (%) (Auto) 86% (31-73) Lymphocytes (%) (Auto) 6% (24-48) Monocytes (%) (Auto) 7% (0-9) Eosinophils (%) (Auto) 1% (0-3) Basophils (%) (Auto) 0% (0-3) Neutrophils # (Auto) 15.7x10^3uL (1.8-7.7) Lymphocytes # (Auto) 1.1x10^3/uL (1.0-4.8) Monocytes # (Auto) 1.3x10^3/uL (0.0-1.1) Eosinophils # (Auto) 0.1x10^3/uL (0.0-0.7) Basophils # (Auto) 0.0x10^3/uL (0.0-0.2) Review of Systems Review of Systems denies fever, chills; T max 100.4 @ 1900 last night denies chest pain improved shortness of air Assessment and Plan Assessmemt and Plan ASSESSMENT: - 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, R pleural effusion and L adrenal gland mets - sepsis, leukocytosis; improving - obstructive pneumonia, with pleural effusion - malnutrition - mild coagulopathy maybe nutritional, MVI - anemia of chronic disease - leukocytosis, sepsis - pleural effusion +malignancy PLAN: - radiation scheduled today; hoping to discharge tomorrow - cont Benadryl for sleep - cont radiation schedule - repeat daily labs - PTOT - appreciate palliative care on the case - appreciate oncology and pulmonology input Problems: Comment Review of Relevant I have reviewed the following items peter (where applicable) has been applied. Labs Laboratory Tests Test 07/23/16 09:15 07/24/16 03:55 White Blood Count 17.3x10^3/uL (4.0-11.0) 18.2x10^3/uL (4.0-11.0) Red Blood Count 3.18x10^6/uL (4.30-5.70) 3.37x10^6/uL (4.30-5.70) Hemoglobin 8.4g/dL (13.0-17.5) 9.0g/dL (13.0-17.5) Hematocrit 26.7% (39.0-53.0) 28.1% (39.0-53.0) Mean Corpuscular Volume 84fL (79-100) 83fL (79-100) Mean Corpuscular Hemoglobin 27pg (25-35) 27pg (25-35) Mean Corpuscular Hemoglobin Concent 32g/dL (31-37) 32g/dL (31-37) Red Cell Distribution Width 15.0% (11.5-14.5) 15.2% (11.5-14.5) Platelet Count 319x10^3/uL (140-400) 381x10^3/uL (140-400) Neutrophils (%) (Auto) 88% (31-73) 86% (31-73) Lymphocytes (%) (Auto) 5% (24-48) 6% (24-48) Monocytes (%) (Auto) 6% (0-9) 7% (0-9) Eosinophils (%) (Auto) 1% (0-3) 1% (0-3) Basophils (%) (Auto) 0% (0-3) 0% (0-3) Neutrophils # (Auto) 15.2x10^3uL (1.8-7.7) 15.7x10^3uL (1.8-7.7) Lymphocytes # (Auto) 0.9x10^3/uL (1.0-4.8) 1.1x10^3/uL (1.0-4.8) Monocytes # (Auto) 1.0x10^3/uL (0.0-1.1) 1.3x10^3/uL (0.0-1.1) Eosinophils # (Auto) 0.1x10^3/uL (0.0-0.7) 0.1x10^3/uL (0.0-0.7) Basophils # (Auto) 0.0x10^3/uL (0.0-0.2) 0.0x10^3/uL (0.0-0.2) Laboratory Tests Test 07/24/16 03:55 White Blood Count 18.2x10^3/uL (4.0-11.0) Red Blood Count 3.37x10^6/uL (4.30-5.70) Hemoglobin 9.0g/dL (13.0-17.5) Hematocrit 28.1% (39.0-53.0) Mean Corpuscular Volume 83fL (79-100) Mean Corpuscular Hemoglobin 27pg (25-35) Mean Corpuscular Hemoglobin Concent 32g/dL (31-37) Red Cell Distribution Width 15.2% (11.5-14.5) Platelet Count 381x10^3/uL (140-400) Neutrophils (%) (Auto) 86% (31-73) Lymphocytes (%) (Auto) 6% (24-48) Monocytes (%) (Auto) 7% (0-9) Eosinophils (%) (Auto) 1% (0-3) Basophils (%) (Auto) 0% (0-3) Neutrophils # (Auto) 15.7x10^3uL (1.8-7.7) Lymphocytes # (Auto) 1.1x10^3/uL (1.0-4.8) Monocytes # (Auto) 1.3x10^3/uL (0.0-1.1) Eosinophils # (Auto) 0.1x10^3/uL (0.0-0.7) Basophils # (Auto) 0.0x10^3/uL (0.0-0.2) Microbiology 07/20/16 Gram Stain - Final, Complete Medications Current Medications Sodium Chloride (Iv Sodium Chloride 0.9% 1000ml Bag) 1,000 ml @ 100 mls/hr Q10H IV Last administered on 07/19/16 14:47; Start 07/19/16 at 12:19; Stop at 22:18; Status DC Ondansetron HCl (Zofran) 4 mg PRN Q6HRS PRN IV NAUSEA/VOMITING Last administered on 07/21/16 13:21; Start 07/19/16 at 12:30 Morphine Sulfate 2 mg PRN Q1HR PRN IV PAIN Last administered on 07/21/16 20:28 ; Start 07/19/16 at 12:30 Acetaminophen/ Hydrocodone Bitart (Lortab 5/325) 1 tab PRN Q4HRS PRN PO MODEARTE - SEVERE PAIN Last administered on 07/23/16 03:32; Start 07/19/16 at 12 :30; Stop 07/23/16 at 08:24; Status DC Acetaminophen (Tylenol) 650 mg PRN Q6HRS PRN PO MILD PAIN / TEMP Last administered on 07/21/16 18:22; Start 07/19/16 at 12:30 Magnesium Hydroxide (Milk Of Magnesia) 2,400 mg PRN Q12HR PRN PO CONSTIPATION; Start 07/19/16 at 12:30 Heparin Sodium (Porcine) 5000 unit 5,000 unit Q8HRS SQ Last administered on 07/19 20:28; Start 07/19/16 at 14:00; Stop 07/21/16 at 08:43; Status DC Levofloxacin/ Dextrose (LEVAQUIN 500mg PREMIX) 100 ml @ 100 mls/hr Q24H IV Last administered on 07/23/16 15:00; Start 07/19/16 at 15:30 Albuterol/ Ipratropium (Duoneb) 3 ml RTQID NEB Last administered on 07/24/16 07:08; Start 07/19/16 at 16:00 Albuterol Sulfate (Ventolin Neb Soln) 2.5 mg PRN Q4HRS PRN NEB SHORTNESS OF BREATH; Start 07/19/16 at 16:00 Iohexol (Omnipaque 300 Mg/ml) 75 ml 1X ONCE IV Last administered on 07/19/16 16:23; Start 07/19/16 at 16:15; Stop 07/19/16 at 16:16; Status DC Info (Do NOT chart on this entry -- for MONITORING) 1 each PRN DAILY PRN MC SEE COMMENTS; Start 07/19/16 at 16:15; Stop 07/21/16 at 16:14; Status DC Enoxaparin Sodium (Lovenox Per Pharmacy Prophylaxis Dosing) 1 each PRN DAILY PRN MC SEE COMMENTS; Start 07/20/16 at 08:15; Status Cancel Multivitamins (Thera M Plus) 1 tab DAILY PO Last administered on 07/24/16 09: 01; Start 07/20/16 at 09:00 Budesonide (Pulmicort) 0.5 mg RTBID NEB Last administered on 07/24/16 07:09; Start 07/20/16 at 08:15 Enoxaparin Sodium (Lovenox 40mg Syringe) 40 mg Q24H SQ ; Start 07/20/16 at 09:00 ; Status Cancel Lidocaine/Sodium Bicarbonate (Buffered Lidocaine 1%) 20 ml STK-MED ONCE IJ ; Start 07/20/16 at 13:16; Stop 07/20/16 at 13:17; Status DC Midazolam HCl (Versed) 2 mg STK-MED ONCE .ROUTE ; Start 07/20/16 at 13:35; Stop 07/20/16 at 13:36; Status DC Fentanyl Citrate (Fentanyl 2ml Vial) 100 mcg STK-MED ONCE .ROUTE ; Start at 13:35; Stop 07/20/16 at 13:36; Status DC Lidocaine/Sodium Bicarbonate (Buffered Lidocaine 1%) 20 ml 1X ONCE IJ Last administered on 07/20/16 14:00; Start 07/20/16 at 14:00; Stop 07/20/16 at 14:01; Status DC Midazolam HCl (Versed) 2 mg 1X ONCE IV Last administered on 07/20/16 14:00; Start 07/20/16 at 14:00; Stop 07/20/16 at 14:01; Status DC Fentanyl Citrate (Fentanyl 2ml Vial) 100 mcg 1X ONCE IV Last administered on 14:00; Start 07/20/16 at 14:00; Stop 07/20/16 at 14:01; Status DC Enoxaparin Sodium (Lovenox 40mg Syringe) 40 mg Q24H SQ ; Start 07/21/16 at 09:00 Diphenhydramine HCl 25 mg 25 mg PRN Q6HRS PRN PO ITCHING; Start 07/21/16 at 13: 30 Sodium Chloride (Iv Sodium Chloride 0.9% 500ml Bag) 500 ml @ 500 mls/hr 1X ONCE IV Last administered on 07/22/16 10:24; Start 07/22/16 at 10:15; Stop 03/30 at 11:14; Status DC Oxycodone/ Acetaminophen (Percocet 5/325) 1 tab PRN Q4HRS PRN PO MODERATE - SEVERE PAIN Last administered on 07/24/16 06:07; Start 07/23/16 at 08:30 Guaifenesin (Mucinex) 600 mg BID PO Last administered on 07/24/16 09:01; Start 07/23/16 at 10:30 Guaifenesin (Robitussin) 200 mg PRN Q4HRS PRN PO COUGH; Start 07/23/16 at 09:30 Artificial Tears (Artificial Tears) 1 drop PRN Q15MIN PRN OU DRY EYE Last administered on 07/23/16 16:29; Start 07/23/16 at 14:30 Vitals/I & O Vital Sign - Last 24 Hours 07/23/16 07/23/16 07/23/16 07/23/16 14:20 15:00 15:15 19:00 Temp 98.1 100.4 98.1 100.4 Pulse 88 95 Resp 18 17 B/P 108/65 100/68 Pulse Ox 98 97 O2 Delivery Room Air Room Air Room Air Room Air 07/23/16 07/23/16 07/23/16 07/24/16 19:00 19:25 22:57 06:07 Temp 99.1 99.1 Pulse 96 Resp 20 18 16 B/P 110/68 Pulse Ox 98 97 97 O2 Delivery Room Air Room Air Room Air Room Air 07/24/16 07/24/16 07/24/16 07/24/16 07:00 07:00 07:10 07:11 Temp 99.3 99.3 Pulse 107 Resp 16 16 B/P 93/66 Pulse Ox 95 96 96 96 O2 Delivery Room Air Room Air Room Air Room Air 07/24/16 07/24/16 08:00 11:00 Temp 98.9 98.9 Pulse 90 B/P 100/57 Pulse Ox 96 O2 Delivery Room Air Room Air Intake and Output 07/23/16 07/23/16 07/24/16 15:00 23:00 07:00 Intake Total 480 ml 180 ml 420 ml Output Total 1200 ml 150 ml 300 ml Balance -720 ml 30 ml 120 ml Nutrition Consultation Dietary Evaluation: Recommendations by RD: Increase Calorie Intake, Protein supplementation Comments: continue Ensure strawberry flavor TID - 350kcal and 20g protein/serving Expected Outcomes/Goals: meet >75% est nutr needs- goal met, on going Interpretation of weight loss: >7.5% in 3 months Malnutrition Findings: Food and Nutrition Intake (Mod: <75% est energy req 7days Body Fat Depletion (Non Severe: Mild Depletion Weight Status: Underweight CASTLE,NIAL K III DO Jul 24, 2016 11:57
[2016-07-24 14:34] VITALS: BP 97/70
--- NOTE | 2016-07-24 16:02 | PDOC ---
PULMONARY PROGRESS NOTES Subjective no soa Vitals Vital Signs Date Time Temp Pulse Resp B/P Pulse Ox O2 Delivery O2 Flow Rate FiO2 07/24/16 15:07 Room Air 07/24/16 14:34 99.3 100 14 97/70 96 99.3 General: Alert, No acute distress Lungs: Other (decrease bs R) Cardiovascular: S1 Abdomen: Soft Neuro Exam: Alert Extremities: No Edema Skin: Warm Labs Laboratory Tests Test 07/23/16 09:15 07/24/16 03:55 White Blood Count 17.3x10^3/uL (4.0-11.0) 18.2x10^3/uL (4.0-11.0) Red Blood Count 3.18x10^6/uL (4.30-5.70) 3.37x10^6/uL (4.30-5.70) Hemoglobin 8.4g/dL (13.0-17.5) 9.0g/dL (13.0-17.5) Hematocrit 26.7% (39.0-53.0) 28.1% (39.0-53.0) Mean Corpuscular Volume 84fL (79-100) 83fL (79-100) Mean Corpuscular Hemoglobin 27pg (25-35) 27pg (25-35) Mean Corpuscular Hemoglobin Concent 32g/dL (31-37) 32g/dL (31-37) Red Cell Distribution Width 15.0% (11.5-14.5) 15.2% (11.5-14.5) Platelet Count 319x10^3/uL (140-400) 381x10^3/uL (140-400) Neutrophils (%) (Auto) 88% (31-73) 86% (31-73) Lymphocytes (%) (Auto) 5% (24-48) 6% (24-48) Monocytes (%) (Auto) 6% (0-9) 7% (0-9) Eosinophils (%) (Auto) 1% (0-3) 1% (0-3) Basophils (%) (Auto) 0% (0-3) 0% (0-3) Neutrophils # (Auto) 15.2x10^3uL (1.8-7.7) 15.7x10^3uL (1.8-7.7) Lymphocytes # (Auto) 0.9x10^3/uL (1.0-4.8) 1.1x10^3/uL (1.0-4.8) Monocytes # (Auto) 1.0x10^3/uL (0.0-1.1) 1.3x10^3/uL (0.0-1.1) Eosinophils # (Auto) 0.1x10^3/uL (0.0-0.7) 0.1x10^3/uL (0.0-0.7) Basophils # (Auto) 0.0x10^3/uL (0.0-0.2) 0.0x10^3/uL (0.0-0.2) Laboratory Tests Test 07/24/16 03:55 White Blood Count 18.2x10^3/uL (4.0-11.0) Red Blood Count 3.37x10^6/uL (4.30-5.70) Hemoglobin 9.0g/dL (13.0-17.5) Hematocrit 28.1% (39.0-53.0) Mean Corpuscular Volume 83fL (79-100) Mean Corpuscular Hemoglobin 27pg (25-35) Mean Corpuscular Hemoglobin Concent 32g/dL (31-37) Red Cell Distribution Width 15.2% (11.5-14.5) Platelet Count 381x10^3/uL (140-400) Neutrophils (%) (Auto) 86% (31-73) Lymphocytes (%) (Auto) 6% (24-48) Monocytes (%) (Auto) 7% (0-9) Eosinophils (%) (Auto) 1% (0-3) Basophils (%) (Auto) 0% (0-3) Neutrophils # (Auto) 15.7x10^3uL (1.8-7.7) Lymphocytes # (Auto) 1.1x10^3/uL (1.0-4.8) Monocytes # (Auto) 1.3x10^3/uL (0.0-1.1) Eosinophils # (Auto) 0.1x10^3/uL (0.0-0.7) Basophils # (Auto) 0.0x10^3/uL (0.0-0.2) Impression . 1. 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 Now admitted with dehydration and fever. 2. Postobstructive pneumonia, which was also best visualized on CT chest from [facility]. 3. Moderate to large right pleural effusion, malignant. 4. Fever secondary to postobstructive pneumonia.resolved 5. Marked weight loss due to malignancy. 7. Underlying chronic obstructive pulmonary disease. Plan . 1. Recent ct chest with large hilar mass with moderate-large right effusion and post-obstructive collapse RUL/ adrenal mets. s/p right chest tube 2. XRT 3. empiric antibiotics. NATHAN HILL MD Jul 24, 2016 16:02
[2016-07-24 19:00] VITALS: BP 93/67
[2016-07-24 23:00] VITALS: BP 100/66
[2016-07-25] MEDS: OXYCODONE/APAP 5/325 TABLET. PO PRN ×3 (02:17→18:30)
[2016-07-25 03:01] VITALS: BP 103/72
[2016-07-25 04:44] LABS: BASO % 0 % (0-3); EOS % 0 % (0-3); HEMATOCRIT 26.3 % (39.0-53.0); HEMOGLOBIN 8.4 g/dL (13.0-17.5); LYMPH # 0.7 x10^3/uL (1.0-4.8); LYMPH % 4 % (24-48); MEAN CORPUSCULAR HEMOGLOBIN 27 pg (25-35); MEAN CORPUSCULAR HGB CONC 32 g/dL (31-37); MEAN CORPUSCULAR VOLUME 83 fL (79-100); MONO % 6 % (0-9); NEUT % 90 % (31-73); PLATELET COUNT 392 x10^3/uL (140-400); RED BLOOD COUNT 3.16 x10^6/uL (4.30-5.70); RED CELL DISTRIBUTION WIDTH 15.4 % (11.5-14.5); WHITE BLOOD COUNT 19.8 x10^3/uL (4.0-11.0)
[2016-07-25 04:47] LABS: CALCIUM 8.4 mg/dL (8.5-10.1); CREATININE 0.9 mg/dL (0.7-1.3); GFR 103.8; POTASSIUM 4.4 mmol/L (3.5-5.1)
[2016-07-25 07:00] VITALS: BP_SYST 101; BP_SYST 103; BP_DIAS 71; BP_DIAS 72
[2016-07-25] MEDS: IPRATRPIUM/ALBUTEROL 0.5/2.5MG 3 ML NEBU. NEB SCH ×2 (07:09→11:32)
[2016-07-25] MEDS: BUDESONIDE 0.5 MG/2 ML NEBU NEB SCH (07:09)
[2016-07-25] MEDS: MULTIVITAMIN with MINERAL TABLET. PO SCH (08:10)
[2016-07-25] MEDS: GUAIFENESIN ER 600 MG TABLET.ER PO SCH ×2 (08:10→20:25)
[2016-07-25] MEDS: ENOXAPARIN 40 MG/0.4 ML DISP.SYRIN. SQ SCH (08:12)
[2016-07-25] MEDS ORDERED: DIFL5DRO2 OP (08:45)
[2016-07-25] MEDS ORDERED: BUDE10.22 IH (08:45)
--- NOTE | 2016-07-25 09:46 | PDOC ---
PULMONARY PROGRESS NOTES Subjective pt wtih cough not more soa Vitals Vital Signs Date Time Temp Pulse Resp B/P Pulse Ox O2 Delivery O2 Flow Rate FiO2 07/25/16 08:11 Room Air 07/25/16 07:13 95 07/25/16 07:00 101/71 07/25/16 07:00 102.7 111 22 102.7 07/25/16 03:17 2.0 General: Alert, No acute distress Lungs: Clear Cardiovascular: S1, S2 Abdomen: Soft, Non-tender Neuro Exam: Alert Extremities: No Edema Skin: Warm Labs Laboratory Tests Test 07/24/16 03:55 07/25/16 03:50 White Blood Count 18.2x10^3/uL (4.0-11.0) 19.8x10^3/uL (4.0-11.0) Red Blood Count 3.37x10^6/uL (4.30-5.70) 3.16x10^6/uL (4.30-5.70) Hemoglobin 9.0g/dL (13.0-17.5) 8.4g/dL (13.0-17.5) Hematocrit 28.1% (39.0-53.0) 26.3% (39.0-53.0) Mean Corpuscular Volume 83fL (79-100) 83fL (79-100) Mean Corpuscular Hemoglobin 27pg (25-35) 27pg (25-35) Mean Corpuscular Hemoglobin Concent 32g/dL (31-37) 32g/dL (31-37) Red Cell Distribution Width 15.2% (11.5-14.5) 15.4% (11.5-14.5) Platelet Count 381x10^3/uL (140-400) 392x10^3/uL (140-400) Neutrophils (%) (Auto) 86% (31-73) 90% (31-73) Lymphocytes (%) (Auto) 6% (24-48) 4% (24-48) Monocytes (%) (Auto) 7% (0-9) 6% (0-9) Eosinophils (%) (Auto) 1% (0-3) 0% (0-3) Basophils (%) (Auto) 0% (0-3) 0% (0-3) Neutrophils # (Auto) 15.7x10^3uL (1.8-7.7) 17.7x10^3uL (1.8-7.7) Lymphocytes # (Auto) 1.1x10^3/uL (1.0-4.8) 0.7x10^3/uL (1.0-4.8) Monocytes # (Auto) 1.3x10^3/uL (0.0-1.1) 1.3x10^3/uL (0.0-1.1) Eosinophils # (Auto) 0.1x10^3/uL (0.0-0.7) 0.0x10^3/uL (0.0-0.7) Basophils # (Auto) 0.0x10^3/uL (0.0-0.2) 0.0x10^3/uL (0.0-0.2) Sodium Level 132mmol/L (136-145) Potassium Level 4.4mmol/L (3.5-5.1) Chloride Level 96mmol/L (98-107) Carbon Dioxide Level 31mmol/L (21-32) Anion Gap 5 (6-14) Blood Urea Nitrogen 13mg/dL (8-26) Creatinine 0.9mg/dL (0.7-1.3) Estimated GFR (Cockcroft-Gault) 103.8 Glucose Level 188mg/dL (70-99) Calcium Level 8.4mg/dL (8.5-10.1) Laboratory Tests Test 07/25/16 03:50 White Blood Count 19.8x10^3/uL (4.0-11.0) Red Blood Count 3.16x10^6/uL (4.30-5.70) Hemoglobin 8.4g/dL (13.0-17.5) Hematocrit 26.3% (39.0-53.0) Mean Corpuscular Volume 83fL (79-100) Mean Corpuscular Hemoglobin 27pg (25-35) Mean Corpuscular Hemoglobin Concent 32g/dL (31-37) Red Cell Distribution Width 15.4% (11.5-14.5) Platelet Count 392x10^3/uL (140-400) Neutrophils (%) (Auto) 90% (31-73) Lymphocytes (%) (Auto) 4% (24-48) Monocytes (%) (Auto) 6% (0-9) Eosinophils (%) (Auto) 0% (0-3) Basophils (%) (Auto) 0% (0-3) Neutrophils # (Auto) 17.7x10^3uL (1.8-7.7) Lymphocytes # (Auto) 0.7x10^3/uL (1.0-4.8) Monocytes # (Auto) 1.3x10^3/uL (0.0-1.1) Eosinophils # (Auto) 0.0x10^3/uL (0.0-0.7) Basophils # (Auto) 0.0x10^3/uL (0.0-0.2) Sodium Level 132mmol/L (136-145) Potassium Level 4.4mmol/L (3.5-5.1) Chloride Level 96mmol/L (98-107) Carbon Dioxide Level 31mmol/L (21-32) Anion Gap 5 (6-14) Blood Urea Nitrogen 13mg/dL (8-26) Creatinine 0.9mg/dL (0.7-1.3) Estimated GFR (Cockcroft-Gault) 103.8 Glucose Level 188mg/dL (70-99) Calcium Level 8.4mg/dL (8.5-10.1) Medications Active Scripts Medications Dose Route/Sig Days Date Category Symbicort 80-4.5 Mcg Inhaler (Budesonide/Formoterol Fumarate) 10.2 Gm Hfa.aer.ad 2 Puff IH BID 07/25/16 Reported Durezol (Difluprednate) 5 Ml Drops 5 Ml OP RIGHT EYE BID 07/25/16 Reported Impression . 1. 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 Now admitted with dehydration and fever. 2. Postobstructive pneumonia, which was also best visualized on CT chest from [facility]. 3. Moderate to large right pleural effusion, malignant. 4. Fever secondary to postobstructive pneumonia.resolved 5. Marked weight loss due to malignancy. 7. Underlying chronic obstructive pulmonary disease. Plan . Add Tessalon perles and prednisone 1. Recent ct chest with large hilar mass with moderate-large right effusion and post-obstructive collapse RUL/ adrenal mets. s/p right chest tube 2. XRT 3. empiric antibiotics. NATHAN HILL MD Jul 25, 2016 09:45
--- NOTE | 2016-07-25 10:56 | PDOC ---
Infectious Disease Note ROS ROS GEN: Denies fevers, chills, sweats HEENT: Denies blurred vision, sore throat CV: Denies chest pain RESP: Denies shortness of air, cough GI: Denies n/v/d NEURO: Denies confusion, dizziness MSK: Denies weakness, joint pain/swelling Vital Sign Vital Signs Vital Signs Date Time Temp Pulse Resp B/P Pulse Ox O2 Delivery O2 Flow Rate FiO2 07/25/16 08:11 Room Air 07/25/16 07:13 95 07/25/16 07:00 101/71 07/25/16 07:00 102.7 111 22 102.7 07/25/16 03:17 2.0 Physical Exam PHYSICAL EXAM GENERAL: NAD, Alert HEENT: PERRL, OC/OP NECK: Supple, no JVD, no LN LUNGS: Clear HEART: S1S2, no gallop, no murmur ABD: Soft, NT, no organomegaly, no rebound EXT: No edema, no cyanosis [employer]OUD SYSTEMS ADMINISTRATOR: Alert, oriented x 3, no focal neurologic deficit SKIN: No rash IV: ok Labs Lab Laboratory Tests Test 07/25/16 03:50 White Blood Count 19.8x10^3/uL (4.0-11.0) Red Blood Count 3.16x10^6/uL (4.30-5.70) Hemoglobin 8.4g/dL (13.0-17.5) Hematocrit 26.3% (39.0-53.0) Mean Corpuscular Volume 83fL (79-100) Mean Corpuscular Hemoglobin 27pg (25-35) Mean Corpuscular Hemoglobin Concent 32g/dL (31-37) Red Cell Distribution Width 15.4% (11.5-14.5) Platelet Count 392x10^3/uL (140-400) Neutrophils (%) (Auto) 90% (31-73) Lymphocytes (%) (Auto) 4% (24-48) Monocytes (%) (Auto) 6% (0-9) Eosinophils (%) (Auto) 0% (0-3) Basophils (%) (Auto) 0% (0-3) Neutrophils # (Auto) 17.7x10^3uL (1.8-7.7) Lymphocytes # (Auto) 0.7x10^3/uL (1.0-4.8) Monocytes # (Auto) 1.3x10^3/uL (0.0-1.1) Eosinophils # (Auto) 0.0x10^3/uL (0.0-0.7) Basophils # (Auto) 0.0x10^3/uL (0.0-0.2) Sodium Level 132mmol/L (136-145) Potassium Level 4.4mmol/L (3.5-5.1) Chloride Level 96mmol/L (98-107) Carbon Dioxide Level 31mmol/L (21-32) Anion Gap 5 (6-14) Blood Urea Nitrogen 13mg/dL (8-26) Creatinine 0.9mg/dL (0.7-1.3) Estimated GFR (Cockcroft-Gault) 103.8 Glucose Level 188mg/dL (70-99) Calcium Level 8.4mg/dL (8.5-10.1) Objective Assessment Fever - ? Tumor vs ID vs Post XRT Leukocytosis PCN allergy -? reaction Pleural effusion Stage 4 adeno lung CA DNI/DNR Plan Plan of Care Ying cults Flu screen Vanc/Meropenem D/c Levoflox F/u labs # [id number] NANCY REEVES MD Jul 25, 2016 10:56
[2016-07-25] MEDS: VANCOMYCIN PER PHARMACY MC PRN (10:58)
[2016-07-25] MEDS ORDERED: VANCOMYCIN 1.25 GM in IV NORMAL SALINE 250ML 250 ML IV ONE (11:00)
--- NOTE | 2016-07-25 11:15 | PDOC ---
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 Patient without new complaints. Has had continued fevers, with a Tmax of 102.7 at 0700 this am. Vitals Vitals Vital Signs Date Time Temp Pulse Resp B/P Pulse Ox O2 Delivery O2 Flow Rate FiO2 07/25/16 08:11 Room Air 07/25/16 07:13 95 07/25/16 07:00 101/71 07/25/16 07:00 102.7 111 22 102.7 07/25/16 03:17 2.0 Physical Exam General: Alert, Oriented X3 Heart: Normal S1, Normal S2 Lungs: Other (decrease bs R) Abdomen: Normal bowel sounds, Soft Extremities: No cyanosis, Other (extensive nail clubbing) Skin: No breakdown Labs LABS Laboratory Tests Test 07/25/16 03:50 White Blood Count 19.8x10^3/uL (4.0-11.0) Red Blood Count 3.16x10^6/uL (4.30-5.70) Hemoglobin 8.4g/dL (13.0-17.5) Hematocrit 26.3% (39.0-53.0) Mean Corpuscular Volume 83fL (79-100) Mean Corpuscular Hemoglobin 27pg (25-35) Mean Corpuscular Hemoglobin Concent 32g/dL (31-37) Red Cell Distribution Width 15.4% (11.5-14.5) Platelet Count 392x10^3/uL (140-400) Neutrophils (%) (Auto) 90% (31-73) Lymphocytes (%) (Auto) 4% (24-48) Monocytes (%) (Auto) 6% (0-9) Eosinophils (%) (Auto) 0% (0-3) Basophils (%) (Auto) 0% (0-3) Neutrophils # (Auto) 17.7x10^3uL (1.8-7.7) Lymphocytes # (Auto) 0.7x10^3/uL (1.0-4.8) Monocytes # (Auto) 1.3x10^3/uL (0.0-1.1) Eosinophils # (Auto) 0.0x10^3/uL (0.0-0.7) Basophils # (Auto) 0.0x10^3/uL (0.0-0.2) Sodium Level 132mmol/L (136-145) Potassium Level 4.4mmol/L (3.5-5.1) Chloride Level 96mmol/L (98-107) Carbon Dioxide Level 31mmol/L (21-32) Anion Gap 5 (6-14) Blood Urea Nitrogen 13mg/dL (8-26) Creatinine 0.9mg/dL (0.7-1.3) Estimated GFR (Cockcroft-Gault) 103.8 Glucose Level 188mg/dL (70-99) Calcium Level 8.4mg/dL (8.5-10.1) Review of Systems Review of Systems febrile this am; T max 102.7 @ 0700 denies chest pain improved shortness of air Assessment and Plan Assessmemt and Plan ASSESSMENT: - 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, R pleural effusion and L adrenal gland mets - sepsis, leukocytosis; improving - obstructive pneumonia, with pleural effusion - malnutrition - mild coagulopathy maybe nutritional, MVI - anemia of chronic disease - leukocytosis, sepsis - pleural effusion +malignancy PLAN: - per ID: d/c levoflox; cont Vanc/Meropenem - radiation scheduled today - will continue to monitor for fevers - cont Benadryl for sleep - repeat daily labs - PTOT - appreciate palliative care on the case - appreciate subspecialty input Problems: Comment Review of Relevant I have reviewed the following items peter (where applicable) has been applied. Labs Laboratory Tests Test 07/24/16 03:55 07/25/16 03:50 White Blood Count 18.2x10^3/uL (4.0-11.0) 19.8x10^3/uL (4.0-11.0) Red Blood Count 3.37x10^6/uL (4.30-5.70) 3.16x10^6/uL (4.30-5.70) Hemoglobin 9.0g/dL (13.0-17.5) 8.4g/dL (13.0-17.5) Hematocrit 28.1% (39.0-53.0) 26.3% (39.0-53.0) Mean Corpuscular Volume 83fL (79-100) 83fL (79-100) Mean Corpuscular Hemoglobin 27pg (25-35) 27pg (25-35) Mean Corpuscular Hemoglobin Concent 32g/dL (31-37) 32g/dL (31-37) Red Cell Distribution Width 15.2% (11.5-14.5) 15.4% (11.5-14.5) Platelet Count 381x10^3/uL (140-400) 392x10^3/uL (140-400) Neutrophils (%) (Auto) 86% (31-73) 90% (31-73) Lymphocytes (%) (Auto) 6% (24-48) 4% (24-48) Monocytes (%) (Auto) 7% (0-9) 6% (0-9) Eosinophils (%) (Auto) 1% (0-3) 0% (0-3) Basophils (%) (Auto) 0% (0-3) 0% (0-3) Neutrophils # (Auto) 15.7x10^3uL (1.8-7.7) 17.7x10^3uL (1.8-7.7) Lymphocytes # (Auto) 1.1x10^3/uL (1.0-4.8) 0.7x10^3/uL (1.0-4.8) Monocytes # (Auto) 1.3x10^3/uL (0.0-1.1) 1.3x10^3/uL (0.0-1.1) Eosinophils # (Auto) 0.1x10^3/uL (0.0-0.7) 0.0x10^3/uL (0.0-0.7) Basophils # (Auto) 0.0x10^3/uL (0.0-0.2) 0.0x10^3/uL (0.0-0.2) Sodium Level 132mmol/L (136-145) Potassium Level 4.4mmol/L (3.5-5.1) Chloride Level 96mmol/L (98-107) Carbon Dioxide Level 31mmol/L (21-32) Anion Gap 5 (6-14) Blood Urea Nitrogen 13mg/dL (8-26) Creatinine 0.9mg/dL (0.7-1.3) Estimated GFR (Cockcroft-Gault) 103.8 Glucose Level 188mg/dL (70-99) Calcium Level 8.4mg/dL (8.5-10.1) Laboratory Tests Test 07/25/16 03:50 White Blood Count 19.8x10^3/uL (4.0-11.0) Red Blood Count 3.16x10^6/uL (4.30-5.70) Hemoglobin 8.4g/dL (13.0-17.5) Hematocrit 26.3% (39.0-53.0) Mean Corpuscular Volume 83fL (79-100) Mean Corpuscular Hemoglobin 27pg (25-35) Mean Corpuscular Hemoglobin Concent 32g/dL (31-37) Red Cell Distribution Width 15.4% (11.5-14.5) Platelet Count 392x10^3/uL (140-400) Neutrophils (%) (Auto) 90% (31-73) Lymphocytes (%) (Auto) 4% (24-48) Monocytes (%) (Auto) 6% (0-9) Eosinophils (%) (Auto) 0% (0-3) Basophils (%) (Auto) 0% (0-3) Neutrophils # (Auto) 17.7x10^3uL (1.8-7.7) Lymphocytes # (Auto) 0.7x10^3/uL (1.0-4.8) Monocytes # (Auto) 1.3x10^3/uL (0.0-1.1) Eosinophils # (Auto) 0.0x10^3/uL (0.0-0.7) Basophils # (Auto) 0.0x10^3/uL (0.0-0.2) Sodium Level 132mmol/L (136-145) Potassium Level 4.4mmol/L (3.5-5.1) Chloride Level 96mmol/L (98-107) Carbon Dioxide Level 31mmol/L (21-32) Anion Gap 5 (6-14) Blood Urea Nitrogen 13mg/dL (8-26) Creatinine 0.9mg/dL (0.7-1.3) Estimated GFR (Cockcroft-Gault) 103.8 Glucose Level 188mg/dL (70-99) Calcium Level 8.4mg/dL (8.5-10.1) Microbiology 07/20/16 Gram Stain - Final, Complete Medications Current Medications Sodium Chloride (Iv Sodium Chloride 0.9% 1000ml Bag) 1,000 ml @ 100 mls/hr Q10H IV Last administered on 07/19/16 14:47; Start 07/19/16 at 12:19; Stop at 22:18; Status DC Ondansetron HCl (Zofran) 4 mg PRN Q6HRS PRN IV NAUSEA/VOMITING Last administered on 07/21/16 13:21; Start 07/19/16 at 12:30 Morphine Sulfate 2 mg PRN Q1HR PRN IV PAIN Last administered on 07/21/16 20:28 ; Start 07/19/16 at 12:30 Acetaminophen/ Hydrocodone Bitart (Lortab 5/325) 1 tab PRN Q4HRS PRN PO MODEARTE - SEVERE PAIN Last administered on 07/23/16 03:32; Start 07/19/16 at 12 :30; Stop 07/23/16 at 08:24; Status DC Acetaminophen (Tylenol) 650 mg PRN Q6HRS PRN PO MILD PAIN / TEMP Last administered on 07/21/16 18:22; Start 07/19/16 at 12:30 Magnesium Hydroxide (Milk Of Magnesia) 2,400 mg PRN Q12HR PRN PO CONSTIPATION; Start 07/19/16 at 12:30 Heparin Sodium (Porcine) 5000 unit 5,000 unit Q8HRS SQ Last administered on 07/19 20:28; Start 07/19/16 at 14:00; Stop 07/21/16 at 08:43; Status DC Levofloxacin/ Dextrose (LEVAQUIN 500mg PREMIX) 100 ml @ 100 mls/hr Q24H IV Last administered on 07/24/16 15:06; Start 07/19/16 at 15:30; Stop 07/25/16 at 10:47; Status DC Albuterol/ Ipratropium (Duoneb) 3 ml RTQID NEB Last administered on 07/25/16 07:09; Start 07/19/16 at 16:00 Albuterol Sulfate (Ventolin Neb Soln) 2.5 mg PRN Q4HRS PRN NEB SHORTNESS OF BREATH; Start 07/19/16 at 16:00 Iohexol (Omnipaque 300 Mg/ml) 75 ml 1X ONCE IV Last administered on 07/19/16 16:23; Start 07/19/16 at 16:15; Stop 07/19/16 at 16:16; Status DC Info (Do NOT chart on this entry -- for MONITORING) 1 each PRN DAILY PRN MC SEE COMMENTS; Start 07/19/16 at 16:15; Stop 07/21/16 at 16:14; Status DC Enoxaparin Sodium (Lovenox Per Pharmacy Prophylaxis Dosing) 1 each PRN DAILY PRN MC SEE COMMENTS; Start 07/20/16 at 08:15; Status Cancel Multivitamins (Thera M Plus) 1 tab DAILY PO Last administered on 07/25/16 08: 10; Start 07/20/16 at 09:00 Budesonide (Pulmicort) 0.5 mg RTBID NEB Last administered on 07/25/16 07:09; Start 07/20/16 at 08:15 Enoxaparin Sodium (Lovenox 40mg Syringe) 40 mg Q24H SQ ; Start 07/20/16 at 09:00 ; Status Cancel Lidocaine/Sodium Bicarbonate (Buffered Lidocaine 1%) 20 ml STK-MED ONCE IJ ; Start 07/20/16 at 13:16; Stop 07/20/16 at 13:17; Status DC Midazolam HCl (Versed) 2 mg STK-MED ONCE .ROUTE ; Start 07/20/16 at 13:35; Stop 07/20/16 at 13:36; Status DC Fentanyl Citrate (Fentanyl 2ml Vial) 100 mcg STK-MED ONCE .ROUTE ; Start at 13:35; Stop 07/20/16 at 13:36; Status DC Lidocaine/Sodium Bicarbonate (Buffered Lidocaine 1%) 20 ml 1X ONCE IJ Last administered on 07/20/16 14:00; Start 07/20/16 at 14:00; Stop 07/20/16 at 14:01; Status DC Midazolam HCl (Versed) 2 mg 1X ONCE IV Last administered on 07/20/16 14:00; Start 07/20/16 at 14:00; Stop 07/20/16 at 14:01; Status DC Fentanyl Citrate (Fentanyl 2ml Vial) 100 mcg 1X ONCE IV Last administered on 14:00; Start 07/20/16 at 14:00; Stop 07/20/16 at 14:01; Status DC Enoxaparin Sodium (Lovenox 40mg Syringe) 40 mg Q24H SQ ; Start 07/21/16 at 09:00 Diphenhydramine HCl 25 mg 25 mg PRN Q6HRS PRN PO ITCHING; Start 07/21/16 at 13: 30 Sodium Chloride (Iv Sodium Chloride 0.9% 500ml Bag) 500 ml @ 500 mls/hr 1X ONCE IV Last administered on 07/22/16 10:24; Start 07/22/16 at 10:15; Stop 03/30 at 11:14; Status DC Oxycodone/ Acetaminophen (Percocet 5/325) 1 tab PRN Q4HRS PRN PO MODERATE - SEVERE PAIN Last administered on 07/25/16 08:11; Start 07/23/16 at 08:30 Guaifenesin (Mucinex) 600 mg BID PO Last administered on 07/25/16 08:10; Start 07/23/16 at 10:30 Guaifenesin (Robitussin) 200 mg PRN Q4HRS PRN PO COUGH; Start 07/23/16 at 09:30 Artificial Tears (Artificial Tears) 1 drop PRN Q15MIN PRN OU DRY EYE Last administered on 07/23/16 16:29; Start 07/23/16 at 14:30 Vancomycin HCl 1 each 1 each PRN DAILY PRN MC SEE COMMENTS Last administered on 07/25/16 10:58; Start 07/25/16 at 10:45 Meropenem 1 gm/ Sodium Chloride 100 ml @ 200 mls/hr Q12HR IV ; Start 07/25/16 at 10:45 Vancomycin HCl 1.25 gm/Sodium Chloride 250 ml @ 167 mls/hr ONCE ONCE IV ; Start 07/25/16 at 11:00; Stop 07/25/16 at 12:29 Vancomycin HCl/ Sodium Chloride (Iv Sodium Chloride 0.9% 250ml) 250 ml @ 250 mls/hr Q24H IV ; Start 07/26/16 at 11:00 Vancomycin HCl 1 each 1X ONCE MC ; Start 07/27/16 at 10:30; Stop 07/27/16 at 10 :31 Active Scripts Active Reported Symbicort 80-4.5 Mcg Inhaler (Budesonide/Formoterol Fumarate) 10.2 Gm Hfa.aer.ad 2 Puff IH BID Durezol (Difluprednate) 5 Ml Drops 5 Ml OP RIGHT EYE BID Vitals/I & O Vital Sign - Last 24 Hours 07/24/16 07/24/16 07/24/16 07/24/16 12:52 13:52 14:34 15:07 Temp 99.3 99.3 Pulse 100 Resp 20 18 14 B/P 97/70 Pulse Ox 96 O2 Delivery Room Air Room Air Room Air 07/24/16 07/24/16 07/24/16 07/24/16 19:00 19:40 19:53 20:21 Temp 100.3 100.3 Pulse 105 Resp 20 B/P 93/67 Pulse Ox 95 95 97 O2 Delivery Room Air Room Air Room Air Room Air O2 Flow Rate 2.0 2.0 07/24/16 07/25/16 07/25/16 07/25/16 23:00 02:17 03:01 03:17 Temp 99.6 101.0 99.6 101.0 Pulse 93 104 Resp 20 20 B/P 100/66 103/72 Pulse Ox 96 96 91 91 O2 Delivery Room Air Room Air Room Air Room Air O2 Flow Rate 2.0 2.0 07/25/16 07/25/16 07/25/16 07/25/16 07:00 07:00 07:13 08:11 Temp 102.7 102.7 Pulse 111 Resp 22 B/P 103/72 101/71 Pulse Ox 97 95 O2 Delivery Room Air Room Air Room Air Intake and Output 07/24/16 07/24/16 07/25/16 15:00 23:00 07:00 Intake Total 240 ml 460 ml Output Total 540 ml 675 ml 600 ml Balance -300 ml -215 ml -600 ml Nutrition Consultation Dietary Evaluation: Recommendations by RD: Increase Calorie Intake, Protein supplementation Comments: continue Ensure strawberry flavor TID - 350kcal and 20g protein/serving Expected Outcomes/Goals: meet >75% est nutr needs- goal met, on going Interpretation of weight loss: >7.5% in 3 months Malnutrition Findings: Food and Nutrition Intake (Mod: <75% est energy req 7days Body Fat Depletion (Non Severe: Mild Depletion Weight Status: Underweight DAVID STEEL III DO Jul 25, 2016 11:15
[2016-07-25] MEDS: MEROPENEM 1 GM in IV NORMAL SALINE 100ML 100 ML IV SCH ×2 (11:46→20:25)
--- NOTE | 2016-07-25 11:48 | PDOC ---
PROGRESS NOTES Subjective Subjective Patient was seen on 07/24/16. He received his first treatment today. Patient says that since the removal of pleural fluid, he has felt much better, in breathing. He says he feels stronger and able to eat and sleep better. , also he feels stronger. On auscultation, the lungs has much improved air entry, bilaterally He looks more awake and energetic. We also learned that the pleural aspirate is positive for malignant cells. Plan: cont. treatment. Objective Objective Vital Signs Date Time Temp Pulse Resp B/P Pulse Ox O2 Delivery O2 Flow Rate FiO2 07/25/16 11:32 Room Air 07/25/16 07:13 95 07/25/16 07:00 101/71 07/25/16 07:00 102.7 111 22 102.7 07/25/16 03:17 2.0 Intake and Output 07/25/16 07:00 Intake Total 700 ml Output Total 1815 ml Balance -1115 ml Intake Oral 600 ml IV Total 100 ml Output Urine Total 1815 ml Assessment Assessment Problems Medical Problems: (1) Lung cancer Status: Acute Comment Review of Relevant I have reviewed the following items peter (where applicable) has been applied. Labs Laboratory Tests Test 07/24/16 03:55 07/25/16 03:50 White Blood Count 18.2x10^3/uL (4.0-11.0) 19.8x10^3/uL (4.0-11.0) Red Blood Count 3.37x10^6/uL (4.30-5.70) 3.16x10^6/uL (4.30-5.70) Hemoglobin 9.0g/dL (13.0-17.5) 8.4g/dL (13.0-17.5) Hematocrit 28.1% (39.0-53.0) 26.3% (39.0-53.0) Mean Corpuscular Volume 83fL (79-100) 83fL (79-100) Mean Corpuscular Hemoglobin 27pg (25-35) 27pg (25-35) Mean Corpuscular Hemoglobin Concent 32g/dL (31-37) 32g/dL (31-37) Red Cell Distribution Width 15.2% (11.5-14.5) 15.4% (11.5-14.5) Platelet Count 381x10^3/uL (140-400) 392x10^3/uL (140-400) Neutrophils (%) (Auto) 86% (31-73) 90% (31-73) Lymphocytes (%) (Auto) 6% (24-48) 4% (24-48) Monocytes (%) (Auto) 7% (0-9) 6% (0-9) Eosinophils (%) (Auto) 1% (0-3) 0% (0-3) Basophils (%) (Auto) 0% (0-3) 0% (0-3) Neutrophils # (Auto) 15.7x10^3uL (1.8-7.7) 17.7x10^3uL (1.8-7.7) Lymphocytes # (Auto) 1.1x10^3/uL (1.0-4.8) 0.7x10^3/uL (1.0-4.8) Monocytes # (Auto) 1.3x10^3/uL (0.0-1.1) 1.3x10^3/uL (0.0-1.1) Eosinophils # (Auto) 0.1x10^3/uL (0.0-0.7) 0.0x10^3/uL (0.0-0.7) Basophils # (Auto) 0.0x10^3/uL (0.0-0.2) 0.0x10^3/uL (0.0-0.2) Sodium Level 132mmol/L (136-145) Potassium Level 4.4mmol/L (3.5-5.1) Chloride Level 96mmol/L (98-107) Carbon Dioxide Level 31mmol/L (21-32) Anion Gap 5 (6-14) Blood Urea Nitrogen 13mg/dL (8-26) Creatinine 0.9mg/dL (0.7-1.3) Estimated GFR (Cockcroft-Gault) 103.8 Glucose Level 188mg/dL (70-99) Calcium Level 8.4mg/dL (8.5-10.1) Laboratory Tests Test 07/25/16 03:50 White Blood Count 19.8x10^3/uL (4.0-11.0) Red Blood Count 3.16x10^6/uL (4.30-5.70) Hemoglobin 8.4g/dL (13.0-17.5) Hematocrit 26.3% (39.0-53.0) Mean Corpuscular Volume 83fL (79-100) Mean Corpuscular Hemoglobin 27pg (25-35) Mean Corpuscular Hemoglobin Concent 32g/dL (31-37) Red Cell Distribution Width 15.4% (11.5-14.5) Platelet Count 392x10^3/uL (140-400) Neutrophils (%) (Auto) 90% (31-73) Lymphocytes (%) (Auto) 4% (24-48) Monocytes (%) (Auto) 6% (0-9) Eosinophils (%) (Auto) 0% (0-3) Basophils (%) (Auto) 0% (0-3) Neutrophils # (Auto) 17.7x10^3uL (1.8-7.7) Lymphocytes # (Auto) 0.7x10^3/uL (1.0-4.8) Monocytes # (Auto) 1.3x10^3/uL (0.0-1.1) Eosinophils # (Auto) 0.0x10^3/uL (0.0-0.7) Basophils # (Auto) 0.0x10^3/uL (0.0-0.2) Sodium Level 132mmol/L (136-145) Potassium Level 4.4mmol/L (3.5-5.1) Chloride Level 96mmol/L (98-107) Carbon Dioxide Level 31mmol/L (21-32) Anion Gap 5 (6-14) Blood Urea Nitrogen 13mg/dL (8-26) Creatinine 0.9mg/dL (0.7-1.3) Estimated GFR (Cockcroft-Gault) 103.8 Glucose Level 188mg/dL (70-99) Calcium Level 8.4mg/dL (8.5-10.1) Microbiology 07/20/16 Gram Stain - Final, Complete Medications Current Medications Sodium Chloride (Iv Sodium Chloride 0.9% 1000ml Bag) 1,000 ml @ 100 mls/hr Q10H IV Last administered on 07/19/16t 14:47; Start 07/19/16 at 12:19; Stop at 22:18; Status DC Ondansetron HCl (Zofran) 4 mg PRN Q6HRS PRN IV NAUSEA/VOMITING Last administered on 07/21/16 13:21; Start 07/19/16 at 12:30 Morphine Sulfate 2 mg PRN Q1HR PRN IV PAIN Last administered on 07/21/16 20:28 ; Start 07/19/16 at 12:30 Acetaminophen/ Hydrocodone Bitart (Lortab 5/325) 1 tab PRN Q4HRS PRN PO MODEARTE - SEVERE PAIN Last administered on 07/23/16 03:32; Start 07/19/16 at 12 :30; Stop 07/23/16 at 08:24; Status DC Acetaminophen (Tylenol) 650 mg PRN Q6HRS PRN PO MILD PAIN / TEMP Last administered on 07/21/16 18:22; Start 07/19/16 at 12:30 Magnesium Hydroxide (Milk Of Magnesia) 2,400 mg PRN Q12HR PRN PO CONSTIPATION; Start 07/19/16 at 12:30 Heparin Sodium (Porcine) 5000 unit 5,000 unit Q8HRS SQ Last administered on 07/19 20:28; Start 07/19/16 at 14:00; Stop 07/21/16 at 08:43; Status DC Levofloxacin/ Dextrose (LEVAQUIN 500mg PREMIX) 100 ml @ 100 mls/hr Q24H IV Last administered on 07/24/16 15:06; Start 07/19/16 at 15:30; Stop 07/25/16 at 10:47; Status DC Albuterol/ Ipratropium (Duoneb) 3 ml RTQID NEB Last administered on 07/25/16 11:32; Start 07/19/16 at 16:00 Albuterol Sulfate (Ventolin Neb Soln) 2.5 mg PRN Q4HRS PRN NEB SHORTNESS OF BREATH; Start 07/19/16 at 16:00 Iohexol (Omnipaque 300 Mg/ml) 75 ml 1X ONCE IV Last administered on 07/19/16 16:23; Start 07/19/16 at 16:15; Stop 07/19/16 at 16:16; Status DC Info (Do NOT chart on this entry -- for MONITORING) 1 each PRN DAILY PRN MC SEE COMMENTS; Start 07/19/16 at 16:15; Stop 07/21/16 at 16:14; Status DC Enoxaparin Sodium (Lovenox Per Pharmacy Prophylaxis Dosing) 1 each PRN DAILY PRN MC SEE COMMENTS; Start 07/20/16 at 08:15; Status Cancel Multivitamins (Thera M Plus) 1 tab DAILY PO Last administered on 07/25/16 08: 10; Start 07/20/16 at 09:00 Budesonide (Pulmicort) 0.5 mg RTBID NEB Last administered on 07/25/16 07:09; Start 07/20/16 at 08:15 Enoxaparin Sodium (Lovenox 40mg Syringe) 40 mg Q24H SQ ; Start 07/20/16 at 09:00 ; Status Cancel Lidocaine/Sodium Bicarbonate (Buffered Lidocaine 1%) 20 ml STK-MED ONCE IJ ; Start 07/20/16 at 13:16; Stop 07/20/16 at 13:17; Status DC Midazolam HCl (Versed) 2 mg STK-MED ONCE .ROUTE ; Start 07/20/16 at 13:35; Stop 07/20/16 at 13:36; Status DC Fentanyl Citrate (Fentanyl 2ml Vial) 100 mcg STK-MED ONCE .ROUTE ; Start at 13:35; Stop 07/20/16 at 13:36; Status DC Lidocaine/Sodium Bicarbonate (Buffered Lidocaine 1%) 20 ml 1X ONCE IJ Last administered on 07/20/16 14:00; Start 07/20/16 at 14:00; Stop 07/20/16 at 14:01; Status DC Midazolam HCl (Versed) 2 mg 1X ONCE IV Last administered on 07/20/16 14:00; Start 07/20/16 at 14:00; Stop 07/20/16 at 14:01; Status DC Fentanyl Citrate (Fentanyl 2ml Vial) 100 mcg 1X ONCE IV Last administered on 14:00; Start 07/20/16 at 14:00; Stop 07/20/16 at 14:01; Status DC Enoxaparin Sodium (Lovenox 40mg Syringe) 40 mg Q24H SQ ; Start 07/21/16 at 09:00 Diphenhydramine HCl 25 mg 25 mg PRN Q6HRS PRN PO ITCHING; Start 07/21/16 at 13: 30 Sodium Chloride (Iv Sodium Chloride 0.9% 500ml Bag) 500 ml @ 500 mls/hr 1X ONCE IV Last administered on 07/22/16 10:24; Start 07/22/16 at 10:15; Stop 03/30 at 11:14; Status DC Oxycodone/ Acetaminophen (Percocet 5/325) 1 tab PRN Q4HRS PRN PO MODERATE - SEVERE PAIN Last administered on 07/25/16 08:11; Start 07/23/16 at 08:30 Guaifenesin (Mucinex) 600 mg BID PO Last administered on 07/25/16 08:10; Start 07/23/16 at 10:30 Guaifenesin (Robitussin) 200 mg PRN Q4HRS PRN PO COUGH; Start 07/23/16 at 09:30 Artificial Tears (Artificial Tears) 1 drop PRN Q15MIN PRN OU DRY EYE Last administered on 07/23/16 16:29; Start 07/23/16 at 14:30 Vancomycin HCl 1 each 1 each PRN DAILY PRN MC SEE COMMENTS Last administered on 07/25/16 10:58; Start 07/25/16 at 10:45 Meropenem 1 gm/ Sodium Chloride 100 ml @ 200 mls/hr Q12HR IV ; Start 07/25/16 at 10:45 Vancomycin HCl 1.25 gm/Sodium Chloride 250 ml @ 167 mls/hr ONCE ONCE IV ; Start 07/25/16 at 11:00; Stop 07/25/16 at 12:29 Vancomycin HCl/ Sodium Chloride (Iv Sodium Chloride 0.9% 250ml) 250 ml @ 250 mls/hr Q24H IV ; Start 07/26/16 at 11:00 Vancomycin HCl 1 each 1X ONCE MC ; Start 07/27/16 at 10:30; Stop 07/27/16 at 10 :31 Active Scripts Active Reported Symbicort 80-4.5 Mcg Inhaler (Budesonide/Formoterol Fumarate) 10.2 Gm Hfa.aer.ad 2 Puff IH BID Durezol (Difluprednate) 5 Ml Drops 5 Ml OP RIGHT EYE BID Vitals/I & O Vital Sign - Last 24 Hours 07/24/16 07/24/16 07/24/16 07/24/16 12:52 13:52 14:34 15:07 Temp 99.3 99.3 Pulse 100 Resp 20 18 14 B/P 97/70 Pulse Ox 96 O2 Delivery Room Air Room Air Room Air 07/24/16 07/24/16 07/24/16 07/24/16 19:00 19:40 19:53 20:21 Temp 100.3 100.3 Pulse 105 Resp 20 B/P 93/67 Pulse Ox 95 95 97 O2 Delivery Room Air Room Air Room Air Room Air O2 Flow Rate 2.0 2.0 07/24/16 07/25/16 07/25/16 07/25/16 23:00 02:17 03:01 03:17 Temp 99.6 101.0 99.6 101.0 Pulse 93 104 Resp 20 20 B/P 100/66 103/72 Pulse Ox 96 96 91 91 O2 Delivery Room Air Room Air Room Air O2 Flow Rate 2.0 2.0 07/25/16 07/25/16 07/25/16 07/25/16 07:00 07:00 07:13 08:11 Temp 102.7 102.7 Pulse 111 Resp 22 B/P 103/72 101/71 Pulse Ox 97 95 O2 Delivery Room Air Room Air Room Air 07/25/16 07/25/16 09:30 11:32 O2 Delivery Room Air Room Air Intake and Output 07/24/16 07/24/16 07/25/16 15:00 23:00 07:00 Intake Total 240 ml 460 ml Output Total 540 ml 675 ml 600 ml Balance -300 ml -215 ml -600 ml Nutrition Consultation Dietary Evaluation: Recommendations by RD: Increase Calorie Intake, Protein supplementation Comments: continue Ensure strawberry flavor TID - 350kcal and 20g protein/serving Expected Outcomes/Goals: meet >75% est nutr needs- goal met, on going Interpretation of weight loss: >7.5% in 3 months Malnutrition Findings: Food and Nutrition Intake (Mod: <75% est energy req 7days Body Fat Depletion (Non Severe: Mild Depletion Weight Status: Underweight SRI MORE MD Jul 25, 2016 11:47
[2016-07-25 13:14] LABS: BILIRUBIN,URINE NEGATIVE (NEG); GLUCOSE,URINE NEGATIVE (NEG); NITRITE,URINE NEGATIVE (NEG); PH,URINE 7.5; PROTEIN,URINE NEGATIVE (NEG-TRACE)
[2016-07-25 13:34] LABS: BACTERIA,URINE 0 /HPF (0-FEW); RBC,URINE 0 /HPF (0-2); SQUAMOUS EPITHELIAL CELL,UR FEW /LPF; TRICHOMONAS,URINE PRESENT; WBC,URINE >40 /HPF (0-4)
[2016-07-25 15:00] VITALS: BP_SYST 113; BP_SYST 98; BP_DIAS 72; BP_DIAS 86
[2016-07-25 16:19] LABS: OBC FLU VALID
[2016-07-25] MEDS: BENZONATATE 100 MG CAPSULE. PO SCH ×2 (18:30→20:26)
[2016-07-25] MEDS: PREDNISONE 10 MG TABLET PO SCH (18:30)
[2016-07-25 19:00] VITALS: BP 86/65
[2016-07-25 23:00] VITALS: BP 112/75
[2016-07-26 03:06] VITALS: BP 104/78
[2016-07-26 03:44] LABS: GFR 91.9; POTASSIUM 4.5 mmol/L (3.5-5.1)
[2016-07-26 04:33] LABS: BASO % 0 % (0-3); EOS % 0 % (0-3); HEMATOCRIT 31.8 % (39.0-53.0); HEMOGLOBIN 9.9 g/dL (13.0-17.5); LYMPH # 0.6 x10^3/uL (1.0-4.8); LYMPH % 2 % (24-48); MEAN CORPUSCULAR HEMOGLOBIN 26 pg (25-35); MEAN CORPUSCULAR HGB CONC 31 g/dL (31-37); MEAN CORPUSCULAR VOLUME 83 fL (79-100); MONO % 3 % (0-9); NEUT % 96 % (31-73); PLATELET COUNT 524 x10^3/uL (140-400); RED BLOOD COUNT 3.82 x10^6/uL (4.30-5.70); RED CELL DISTRIBUTION WIDTH 15.4 % (11.5-14.5); WHITE BLOOD COUNT 30.6 x10^3/uL (4.0-11.0)
[2016-07-26 07:00] VITALS: BP_SYST 105; BP_SYST 94; BP_DIAS 62; BP_DIAS 67
[2016-07-26 08:10] LABS: ANISOCYTOSIS SLIGHT; PLT ESTIMATE INCREASED (ADEQUATE); TOXIC GRANULATION PRESENT
[2016-07-26] MEDS: ENOXAPARIN 40 MG/0.4 ML DISP.SYRIN. SQ SCH (09:00)
[2016-07-26] MEDS: BENZONATATE 100 MG CAPSULE. PO SCH ×3 (09:27→21:12)
[2016-07-26] MEDS: GUAIFENESIN ER 600 MG TABLET.ER PO SCH ×2 (09:27→21:12)
[2016-07-26] MEDS: ACETAMINOPHEN 325 MG TABLET. PO PRN (09:27)
[2016-07-26] MEDS: MULTIVITAMIN with MINERAL TABLET. PO SCH (09:27)
[2016-07-26] MEDS: PREDNISONE 10 MG TABLET PO SCH (09:27)
[2016-07-26] MEDS: MEROPENEM 1 GM in IV NORMAL SALINE 100ML 100 ML IV SCH ×2 (09:28→21:12)
--- NOTE | 2016-07-26 09:30 | PDOC ---
Infectious Disease Note Subjective Subjective Feels better. Occ cough ROS ROS GEN: Denies fevers, chills, sweats HEENT: Denies blurred vision, sore throat CV: Denies chest pain RESP: Denies shortness of air GI: Denies n/v/d NEURO: Denies confusion, dizziness MSK: Denies weakness, joint pain/swelling Vital Sign Vital Signs Vital Signs Date Time Temp Pulse Resp B/P Pulse Ox O2 Delivery O2 Flow Rate FiO2 07/26/16 07:00 100.4 102 20 94/62 100 Room Air 100.4 07/25/16 20:00 2.0 Physical Exam PHYSICAL EXAM GENERAL: NAD, Alert HEENT: PERRL, OC/OP - dry NECK: Supple, no JVD, no LN LUNGS: Clear HEART: S1S2, no gallop, no murmur ABD: Soft, NT, no organomegaly, no rebound EXT: No edema, no cyanosis, thin BARREL INSPECTOR: Alert, oriented x 3, no focal neurologic deficit SKIN: No rash IV: ok Labs Lab Laboratory Tests Test 07/25/16 12:59 07/25/16 14:00 07/26/16 03:15 Urine Collection Type Unknown Urine Color Yellow Urine Clarity Clear Urine pH 7.5 Urine Specific [place] 1.010 Urine Protein Negativemg/dL (NEG-TRACE) Urine Glucose (UA) Negativemg/dL (NEG) Urine Ketones (Stick) Negativemg/dL (NEG) Urine Blood Negative (NEG) Urine Nitrite Negative (NEG) Urine Bilirubin Negative (NEG) Urine Urobilinogen Dipstick 1.0mg/dL (0.2 mg/dL) Urine Leukocyte Esterase Large (NEG) Urine RBC 0/HPF (0-2) Urine WBC >40/HPF (0-4) Urine Squamous Epithelial Cells Few/LPF Urine Transitional Epithelial Cells Few/LPF Urine Bacteria 0/HPF (0-FEW) Urine Trichomonas Present Influenza Type A Antigen Negative (NEGATIVE) Influenza Type B Antigen Negative (NEGATIVE) White Blood Count 30.6x10^3/uL (4.0-11.0) Red Blood Count 3.82x10^6/uL (4.30-5.70) Hemoglobin 9.9g/dL (13.0-17.5) Hematocrit 31.8% (39.0-53.0) Mean Corpuscular Volume 83fL (79-100) Mean Corpuscular Hemoglobin 26pg (25-35) Mean Corpuscular Hemoglobin Concent 31g/dL (31-37) Red Cell Distribution Width 15.4% (11.5-14.5) Platelet Count 524x10^3/uL (140-400) Neutrophils (%) (Auto) 96% (31-73) Lymphocytes (%) (Auto) 2% (24-48) Monocytes (%) (Auto) 3% (0-9) Eosinophils (%) (Auto) 0% (0-3) Basophils (%) (Auto) 0% (0-3) Neutrophils # (Auto) 29.2x10^3uL (1.8-7.7) Lymphocytes # (Auto) 0.6x10^3/uL (1.0-4.8) Monocytes # (Auto) 0.8x10^3/uL (0.0-1.1) Eosinophils # (Auto) 0.0x10^3/uL (0.0-0.7) Basophils # (Auto) 0.0x10^3/uL (0.0-0.2) Segmented Neutrophils % 93% (35-66) Band Neutrophils % 3% (0-9) Lymphocytes % 2% (24-48) Monocytes % 2% (0-10) Toxic Granulation Present Platelet Estimate Increased (ADEQUATE) Anisocytosis Slight Sodium Level 137mmol/L (136-145) Potassium Level 4.5mmol/L (3.5-5.1) Chloride Level 98mmol/L (98-107) Carbon Dioxide Level 31mmol/L (21-32) Anion Gap 8 (6-14) Blood Urea Nitrogen 19mg/dL (8-26) Creatinine 1.0mg/dL (0.7-1.3) Estimated GFR (Cockcroft-Gault) 91.9 Glucose Level 179mg/dL (70-99) Calcium Level 9.0mg/dL (8.5-10.1) Objective Assessment Fever - ? Tumor vs ID vs Post XRT Leukocytosis PCN allergy -? reaction Pleural effusion Stage 4 adeno lung CA DNI/DNR Plan Plan of Care F/u cults Cont Vanc/Meropenem - hope to change to po soon F/u labs overall prognosis appears poor NANCY REEVES MD Jul 26, 2016 09:30
--- NOTE | 2016-07-26 10:59 | PDOC ---
PULMONARY PROGRESS NOTES Subjective pt feels better today Vitals Vital Signs Date Time Temp Pulse Resp B/P Pulse Ox O2 Delivery O2 Flow Rate FiO2 07/26/16 08:00 Room Air 07/26/16 07:00 100.4 102 20 94/62 100 100.4 07/25/16 20:00 2.0 General: Alert, No acute distress Lungs: Clear Cardiovascular: S1, S2 Abdomen: Soft, Non-tender Neuro Exam: Alert Extremities: No Edema Skin: Warm Labs Laboratory Tests Test 07/25/16 03:50 07/25/16 12:59 07/25/16 14:00 07/26/16 03:15 White Blood Count 19.8x10^3/uL (4.0-11.0) 30.6x10^3/uL (4.0-11.0) Red Blood Count 3.16x10^6/uL (4.30-5.70) 3.82x10^6/uL (4.30-5.70) Hemoglobin 8.4g/dL (13.0-17.5) 9.9g/dL (13.0-17.5) Hematocrit 26.3% (39.0-53.0) 31.8% (39.0-53.0) Mean Corpuscular Volume 83fL (79-100) 83fL (79-100) Mean Corpuscular Hemoglobin 27pg (25-35) 26pg (25-35) Mean Corpuscular Hemoglobin Concent 32g/dL (31-37) 31g/dL (31-37) Red Cell Distribution Width 15.4% (11.5-14.5) 15.4% (11.5-14.5) Platelet Count 392x10^3/uL (140-400) 524x10^3/uL (140-400) Neutrophils (%) (Auto) 90% (31-73) 96% (31-73) Lymphocytes (%) (Auto) 4% (24-48) 2% (24-48) Monocytes (%) (Auto) 6% (0-9) 3% (0-9) Eosinophils (%) (Auto) 0% (0-3) 0% (0-3) Basophils (%) (Auto) 0% (0-3) 0% (0-3) Neutrophils # (Auto) 17.7x10^3uL (1.8-7.7) 29.2x10^3uL (1.8-7.7) Lymphocytes # (Auto) 0.7x10^3/uL (1.0-4.8) 0.6x10^3/uL (1.0-4.8) Monocytes # (Auto) 1.3x10^3/uL (0.0-1.1) 0.8x10^3/uL (0.0-1.1) Eosinophils # (Auto) 0.0x10^3/uL (0.0-0.7) 0.0x10^3/uL (0.0-0.7) Basophils # (Auto) 0.0x10^3/uL (0.0-0.2) 0.0x10^3/uL (0.0-0.2) Sodium Level 132mmol/L (136-145) 137mmol/L (136-145) Potassium Level 4.4mmol/L (3.5-5.1) 4.5mmol/L (3.5-5.1) Chloride Level 96mmol/L (98-107) 98mmol/L (98-107) Carbon Dioxide Level 31mmol/L (21-32) 31mmol/L (21-32) Anion Gap 5 (6-14) 8 (6-14) Blood Urea Nitrogen 13mg/dL (8-26) 19mg/dL (8-26) Creatinine 0.9mg/dL (0.7-1.3) 1.0mg/dL (0.7-1.3) Estimated GFR (Cockcroft-Gault) 103.8 91.9 Glucose Level 188mg/dL (70-99) 179mg/dL (70-99) Calcium Level 8.4mg/dL (8.5-10.1) 9.0mg/dL (8.5-10.1) Urine Collection Type Unknown Urine Color Yellow Urine Clarity Clear Urine pH 7.5 Urine Specific [place] 1.010 Urine Protein Negativemg/dL (NEG-TRACE) Urine Glucose (UA) Negativemg/dL (NEG) Urine Ketones (Stick) Negativemg/dL (NEG) Urine Blood Negative (NEG) Urine Nitrite Negative (NEG) Urine Bilirubin Negative (NEG) Urine Urobilinogen Dipstick 1.0mg/dL (0.2 mg/dL) Urine Leukocyte Esterase Large (NEG) Urine RBC 0/HPF (0-2) Urine WBC >40/HPF (0-4) Urine Squamous Epithelial Cells Few/LPF Urine Transitional Epithelial Cells Few/LPF Urine Bacteria 0/HPF (0-FEW) Urine Trichomonas Present Influenza Type A Antigen Negative (NEGATIVE) Influenza Type B Antigen Negative (NEGATIVE) Segmented Neutrophils % 93% (35-66) Band Neutrophils % 3% (0-9) Lymphocytes % 2% (24-48) Monocytes % 2% (0-10) Toxic Granulation Present Platelet Estimate Increased (ADEQUATE) Anisocytosis Slight Laboratory Tests Test 07/25/16 12:59 07/25/16 14:00 07/26/16 03:15 Urine Collection Type Unknown Urine Color Yellow Urine Clarity Clear Urine pH 7.5 Urine Specific [place] 1.010 Urine Protein Negativemg/dL (NEG-TRACE) Urine Glucose (UA) Negativemg/dL (NEG) Urine Ketones (Stick) Negativemg/dL (NEG) Urine Blood Negative (NEG) Urine Nitrite Negative (NEG) Urine Bilirubin Negative (NEG) Urine Urobilinogen Dipstick 1.0mg/dL (0.2 mg/dL) Urine Leukocyte Esterase Large (NEG) Urine RBC 0/HPF (0-2) Urine WBC >40/HPF (0-4) Urine Squamous Epithelial Cells Few/LPF Urine Transitional Epithelial Cells Few/LPF Urine Bacteria 0/HPF (0-FEW) Urine Trichomonas Present Influenza Type A Antigen Negative (NEGATIVE) Influenza Type B Antigen Negative (NEGATIVE) White Blood Count 30.6x10^3/uL (4.0-11.0) Red Blood Count 3.82x10^6/uL (4.30-5.70) Hemoglobin 9.9g/dL (13.0-17.5) Hematocrit 31.8% (39.0-53.0) Mean Corpuscular Volume 83fL (79-100) Mean Corpuscular Hemoglobin 26pg (25-35) Mean Corpuscular Hemoglobin Concent 31g/dL (31-37) Red Cell Distribution Width 15.4% (11.5-14.5) Platelet Count 524x10^3/uL (140-400) Neutrophils (%) (Auto) 96% (31-73) Lymphocytes (%) (Auto) 2% (24-48) Monocytes (%) (Auto) 3% (0-9) Eosinophils (%) (Auto) 0% (0-3) Basophils (%) (Auto) 0% (0-3) Neutrophils # (Auto) 29.2x10^3uL (1.8-7.7) Lymphocytes # (Auto) 0.6x10^3/uL (1.0-4.8) Monocytes # (Auto) 0.8x10^3/uL (0.0-1.1) Eosinophils # (Auto) 0.0x10^3/uL (0.0-0.7) Basophils # (Auto) 0.0x10^3/uL (0.0-0.2) Segmented Neutrophils % 93% (35-66) Band Neutrophils % 3% (0-9) Lymphocytes % 2% (24-48) Monocytes % 2% (0-10) Toxic Granulation Present Platelet Estimate Increased (ADEQUATE) Anisocytosis Slight Sodium Level 137mmol/L (136-145) Potassium Level 4.5mmol/L (3.5-5.1) Chloride Level 98mmol/L (98-107) Carbon Dioxide Level 31mmol/L (21-32) Anion Gap 8 (6-14) Blood Urea Nitrogen 19mg/dL (8-26) Creatinine 1.0mg/dL (0.7-1.3) Estimated GFR (Cockcroft-Gault) 91.9 Glucose Level 179mg/dL (70-99) Calcium Level 9.0mg/dL (8.5-10.1) Medications Active Scripts Medications Dose Route/Sig Days Date Category Symbicort 80-4.5 Mcg Inhaler (Budesonide/Formoterol Fumarate) 10.2 Gm Hfa.aer.ad 2 Puff IH BID 07/25/16 Reported Durezol (Difluprednate) 5 Ml Drops 5 Ml OP RIGHT EYE BID 07/25/16 Reported Impression . 1. 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 Now admitted with dehydration and fever. 2. Postobstructive pneumonia, which was also best visualized on CT chest from [facility]. 3. Moderate to large right pleural effusion, malignant. 4. Fever secondary to postobstructive pneumonia.resolved 5. Marked weight loss due to malignancy. 7. Underlying chronic obstructive pulmonary disease. Plan . Add Tessalon Perles and prednisone 1. Recent ct chest with large hilar mass with moderate-large right effusion and post-obstructive collapse RUL/ adrenal mets. s/p right chest tube 2. XRT 3. empiric antibiotics. NATHAN HILL MD Jul 26, 2016 10:59
[2016-07-26 11:00] VITALS: BP 108/75
[2016-07-26] MEDS: VANCOMYCIN 750 MG in IV NORMAL SALINE 250ML 250 ML IV SCH (12:13)
--- NOTE | 2016-07-26 13:03 | PDOC ---
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 Continue to have fever 100.4 this AM. Leukocytosis noticed. Consults are on the board, agree with their plan of care, discussed with RN and pt. Vitals Vitals Vital Signs Date Time Temp Pulse Resp B/P Pulse Ox O2 Delivery O2 Flow Rate FiO2 07/26/16 11:00 98.1 82 20 108/75 100 Room Air 98.1 07/25/16 20:00 2.0 Physical Exam General: Alert, Oriented X3 Heart: Regular rate Lungs: Clear Abdomen: Normal bowel sounds, Soft Extremities: No cyanosis, Other (extensive nail clubbing) Skin: No breakdown Labs LABS Laboratory Tests Test 07/25/16 12:59 07/25/16 14:00 07/26/16 03:15 Urine Collection Type Unknown Urine Color Yellow Urine Clarity Clear Urine pH 7.5 Urine Specific [place] 1.010 Urine Protein Negativemg/dL (NEG-TRACE) Urine Glucose (UA) Negativemg/dL (NEG) Urine Ketones (Stick) Negativemg/dL (NEG) Urine Blood Negative (NEG) Urine Nitrite Negative (NEG) Urine Bilirubin Negative (NEG) Urine Urobilinogen Dipstick 1.0mg/dL (0.2 mg/dL) Urine Leukocyte Esterase Large (NEG) Urine RBC 0/HPF (0-2) Urine WBC >40/HPF (0-4) Urine Squamous Epithelial Cells Few/LPF Urine Transitional Epithelial Cells Few/LPF Urine Bacteria 0/HPF (0-FEW) Urine Trichomonas Present Influenza Type A Antigen Negative (NEGATIVE) Influenza Type B Antigen Negative (NEGATIVE) White Blood Count 30.6x10^3/uL (4.0-11.0) Red Blood Count 3.82x10^6/uL (4.30-5.70) Hemoglobin 9.9g/dL (13.0-17.5) Hematocrit 31.8% (39.0-53.0) Mean Corpuscular Volume 83fL (79-100) Mean Corpuscular Hemoglobin 26pg (25-35) Mean Corpuscular Hemoglobin Concent 31g/dL (31-37) Red Cell Distribution Width 15.4% (11.5-14.5) Platelet Count 524x10^3/uL (140-400) Neutrophils (%) (Auto) 96% (31-73) Lymphocytes (%) (Auto) 2% (24-48) Monocytes (%) (Auto) 3% (0-9) Eosinophils (%) (Auto) 0% (0-3) Basophils (%) (Auto) 0% (0-3) Neutrophils # (Auto) 29.2x10^3uL (1.8-7.7) Lymphocytes # (Auto) 0.6x10^3/uL (1.0-4.8) Monocytes # (Auto) 0.8x10^3/uL (0.0-1.1) Eosinophils # (Auto) 0.0x10^3/uL (0.0-0.7) Basophils # (Auto) 0.0x10^3/uL (0.0-0.2) Segmented Neutrophils % 93% (35-66) Band Neutrophils % 3% (0-9) Lymphocytes % 2% (24-48) Monocytes % 2% (0-10) Toxic Granulation Present Platelet Estimate Increased (ADEQUATE) Anisocytosis Slight Sodium Level 137mmol/L (136-145) Potassium Level 4.5mmol/L (3.5-5.1) Chloride Level 98mmol/L (98-107) Carbon Dioxide Level 31mmol/L (21-32) Anion Gap 8 (6-14) Blood Urea Nitrogen 19mg/dL (8-26) Creatinine 1.0mg/dL (0.7-1.3) Estimated GFR (Cockcroft-Gault) 91.9 Glucose Level 179mg/dL (70-99) Calcium Level 9.0mg/dL (8.5-10.1) Review of Systems Review of Systems Tmax 100.4 at 7am but no chills Denies SOB, CP Eating and drinking without any difficulty Alert, awake, and oriented Assessment and Plan Assessmemt and Plan ASSESSMENT: - 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, R pleural effusion and L adrenal gland mets - sepsis, leukocytosis; improving - obstructive pneumonia, with pleural effusion - malnutrition - mild coagulopathy maybe nutritional, MVI - anemia of chronic disease - leukocytosis, sepsis - pleural effusion +malignancy PLAN: - Cont Vanc/Meropenem per ID recommendation - Continue care per floor protocol - will continue to monitor for fevers - Recheck labs in AM - PTOT - appreciate palliative care on the case - appreciate subspecialty input and recommendations Problems Medical Problems: (1) Lung cancer Status: Acute Problems: Comment Review of Relevant I have reviewed the following items peter (where applicable) has been applied. Labs Laboratory Tests Test 07/25/16 03:50 07/25/16 12:59 07/25/16 14:00 07/26/16 03:15 White Blood Count 19.8x10^3/uL (4.0-11.0) 30.6x10^3/uL (4.0-11.0) Red Blood Count 3.16x10^6/uL (4.30-5.70) 3.82x10^6/uL (4.30-5.70) Hemoglobin 8.4g/dL (13.0-17.5) 9.9g/dL (13.0-17.5) Hematocrit 26.3% (39.0-53.0) 31.8% (39.0-53.0) Mean Corpuscular Volume 83fL (79-100) 83fL (79-100) Mean Corpuscular Hemoglobin 27pg (25-35) 26pg (25-35) Mean Corpuscular Hemoglobin Concent 32g/dL (31-37) 31g/dL (31-37) Red Cell Distribution Width 15.4% (11.5-14.5) 15.4% (11.5-14.5) Platelet Count 392x10^3/uL (140-400) 524x10^3/uL (140-400) Neutrophils (%) (Auto) 90% (31-73) 96% (31-73) Lymphocytes (%) (Auto) 4% (24-48) 2% (24-48) Monocytes (%) (Auto) 6% (0-9) 3% (0-9) Eosinophils (%) (Auto) 0% (0-3) 0% (0-3) Basophils (%) (Auto) 0% (0-3) 0% (0-3) Neutrophils # (Auto) 17.7x10^3uL (1.8-7.7) 29.2x10^3uL (1.8-7.7) Lymphocytes # (Auto) 0.7x10^3/uL (1.0-4.8) 0.6x10^3/uL (1.0-4.8) Monocytes # (Auto) 1.3x10^3/uL (0.0-1.1) 0.8x10^3/uL (0.0-1.1) Eosinophils # (Auto) 0.0x10^3/uL (0.0-0.7) 0.0x10^3/uL (0.0-0.7) Basophils # (Auto) 0.0x10^3/uL (0.0-0.2) 0.0x10^3/uL (0.0-0.2) Sodium Level 132mmol/L (136-145) 137mmol/L (136-145) Potassium Level 4.4mmol/L (3.5-5.1) 4.5mmol/L (3.5-5.1) Chloride Level 96mmol/L (98-107) 98mmol/L (98-107) Carbon Dioxide Level 31mmol/L (21-32) 31mmol/L (21-32) Anion Gap 5 (6-14) 8 (6-14) Blood Urea Nitrogen 13mg/dL (8-26) 19mg/dL (8-26) Creatinine 0.9mg/dL (0.7-1.3) 1.0mg/dL (0.7-1.3) Estimated GFR (Cockcroft-Gault) 103.8 91.9 Glucose Level 188mg/dL (70-99) 179mg/dL (70-99) Calcium Level 8.4mg/dL (8.5-10.1) 9.0mg/dL (8.5-10.1) Urine Collection Type Unknown Urine Color Yellow Urine Clarity Clear Urine pH 7.5 Urine Specific [place] 1.010 Urine Protein Negativemg/dL (NEG-TRACE) Urine Glucose (UA) Negativemg/dL (NEG) Urine Ketones (Stick) Negativemg/dL (NEG) Urine Blood Negative (NEG) Urine Nitrite Negative (NEG) Urine Bilirubin Negative (NEG) Urine Urobilinogen Dipstick 1.0mg/dL (0.2 mg/dL) Urine Leukocyte Esterase Large (NEG) Urine RBC 0/HPF (0-2) Urine WBC >40/HPF (0-4) Urine Squamous Epithelial Cells Few/LPF Urine Transitional Epithelial Cells Few/LPF Urine Bacteria 0/HPF (0-FEW) Urine Trichomonas Present Influenza Type A Antigen Negative (NEGATIVE) Influenza Type B Antigen Negative (NEGATIVE) Segmented Neutrophils % 93% (35-66) Band Neutrophils % 3% (0-9) Lymphocytes % 2% (24-48) Monocytes % 2% (0-10) Toxic Granulation Present Platelet Estimate Increased (ADEQUATE) Anisocytosis Slight Laboratory Tests Test 07/25/16 12:59 07/25/16 14:00 07/26/16 03:15 Urine Collection Type Unknown Urine Color Yellow Urine Clarity Clear Urine pH 7.5 Urine Specific [place] 1.010 Urine Protein Negativemg/dL (NEG-TRACE) Urine Glucose (UA) Negativemg/dL (NEG) Urine Ketones (Stick) Negativemg/dL (NEG) Urine Blood Negative (NEG) Urine Nitrite Negative (NEG) Urine Bilirubin Negative (NEG) Urine Urobilinogen Dipstick 1.0mg/dL (0.2 mg/dL) Urine Leukocyte Esterase Large (NEG) Urine RBC 0/HPF (0-2) Urine WBC >40/HPF (0-4) Urine Squamous Epithelial Cells Few/LPF Urine Transitional Epithelial Cells Few/LPF Urine Bacteria 0/HPF (0-FEW) Urine Trichomonas Present Influenza Type A Antigen Negative (NEGATIVE) Influenza Type B Antigen Negative (NEGATIVE) White Blood Count 30.6x10^3/uL (4.0-11.0) Red Blood Count 3.82x10^6/uL (4.30-5.70) Hemoglobin 9.9g/dL (13.0-17.5) Hematocrit 31.8% (39.0-53.0) Mean Corpuscular Volume 83fL (79-100) Mean Corpuscular Hemoglobin 26pg (25-35) Mean Corpuscular Hemoglobin Concent 31g/dL (31-37) Red Cell Distribution Width 15.4% (11.5-14.5) Platelet Count 524x10^3/uL (140-400) Neutrophils (%) (Auto) 96% (31-73) Lymphocytes (%) (Auto) 2% (24-48) Monocytes (%) (Auto) 3% (0-9) Eosinophils (%) (Auto) 0% (0-3) Basophils (%) (Auto) 0% (0-3) Neutrophils # (Auto) 29.2x10^3uL (1.8-7.7) Lymphocytes # (Auto) 0.6x10^3/uL (1.0-4.8) Monocytes # (Auto) 0.8x10^3/uL (0.0-1.1) Eosinophils # (Auto) 0.0x10^3/uL (0.0-0.7) Basophils # (Auto) 0.0x10^3/uL (0.0-0.2) Segmented Neutrophils % 93% (35-66) Band Neutrophils % 3% (0-9) Lymphocytes % 2% (24-48) Monocytes % 2% (0-10) Toxic Granulation Present Platelet Estimate Increased (ADEQUATE) Anisocytosis Slight Sodium Level 137mmol/L (136-145) Potassium Level 4.5mmol/L (3.5-5.1) Chloride Level 98mmol/L (98-107) Carbon Dioxide Level 31mmol/L (21-32) Anion Gap 8 (6-14) Blood Urea Nitrogen 19mg/dL (8-26) Creatinine 1.0mg/dL (0.7-1.3) Estimated GFR (Cockcroft-Gault) 91.9 Glucose Level 179mg/dL (70-99) Calcium Level 9.0mg/dL (8.5-10.1) Microbiology 07/25/16 Blood Culture - Preliminary, Resulted NO GROWTH AFTER 1 DAY 07/20/16 Gram Stain - Final, Complete Medications Current Medications Sodium Chloride (Iv Sodium Chloride 0.9% 1000ml Bag) 1,000 ml @ 100 mls/hr Q10H IV Last administered on 07/19/16t 14:47; Start 07/19/16 at 12:19; Stop at 22:18; Status DC Ondansetron HCl (Zofran) 4 mg PRN Q6HRS PRN IV NAUSEA/VOMITING Last administered on 07/21/16 13:21; Start 07/19/16 at 12:30 Morphine Sulfate 2 mg PRN Q1HR PRN IV PAIN Last administered on 07/21/16 20:28 ; Start 07/19/16 at 12:30 Acetaminophen/ Hydrocodone Bitart (Lortab 5/325) 1 tab PRN Q4HRS PRN PO MODEARTE - SEVERE PAIN Last administered on 07/23/16 03:32; Start 07/19/16 at 12 :30; Stop 07/23/16 at 08:24; Status DC Acetaminophen (Tylenol) 650 mg PRN Q6HRS PRN PO MILD PAIN / TEMP Last administered on 07/26/16 09:27; Start 07/19/16 at 12:30 Magnesium Hydroxide (Milk Of Magnesia) 2,400 mg PRN Q12HR PRN PO CONSTIPATION; Start 07/19/16 at 12:30 Heparin Sodium (Porcine) 5000 unit 5,000 unit Q8HRS SQ Last administered on 07/19 20:28; Start 07/19/16 at 14:00; Stop 07/21/16 at 08:43; Status DC Levofloxacin/ Dextrose (LEVAQUIN 500mg PREMIX) 100 ml @ 100 mls/hr Q24H IV Last administered on 07/24/16 15:06; Start 07/19/16 at 15:30; Stop 07/25/16 at 10:47; Status DC Albuterol/ Ipratropium (Duoneb) 3 ml RTQID NEB Last administered on 07/25/16 11:32; Start 07/19/16 at 16:00; Stop 07/25/16 at 15:31; Status DC Albuterol Sulfate (Ventolin Neb Soln) 2.5 mg PRN Q4HRS PRN NEB SHORTNESS OF BREATH; Start 07/19/16 at 16:00 Iohexol (Omnipaque 300 Mg/ml) 75 ml 1X ONCE IV Last administered on 07/19/16 16:23; Start 07/19/16 at 16:15; Stop 07/19/16 at 16:16; Status DC Info (Do NOT chart on this entry -- for MONITORING) 1 each PRN DAILY PRN MC SEE COMMENTS; Start 07/19/16 at 16:15; Stop 07/21/16 at 16:14; Status DC Enoxaparin Sodium (Lovenox Per Pharmacy Prophylaxis Dosing) 1 each PRN DAILY PRN MC SEE COMMENTS; Start 07/20/16 at 08:15; Status Cancel Multivitamins (Thera M Plus) 1 tab DAILY PO Last administered on 07/26/16 09: 27; Start 07/20/16 at 09:00 Budesonide (Pulmicort) 0.5 mg RTBID NEB Last administered on 07/25/16 07:09; Start 07/20/16 at 08:15; Stop 07/25/16 at 15:31; Status DC Enoxaparin Sodium (Lovenox 40mg Syringe) 40 mg Q24H SQ ; Start 07/20/16 at 09:00 ; Status Cancel Lidocaine/Sodium Bicarbonate (Buffered Lidocaine 1%) 20 ml STK-MED ONCE IJ ; Start 07/20/16 at 13:16; Stop 07/20/16 at 13:17; Status DC Midazolam HCl (Versed) 2 mg STK-MED ONCE .ROUTE ; Start 07/20/16 at 13:35; Stop 07/20/16 at 13:36; Status DC Fentanyl Citrate (Fentanyl 2ml Vial) 100 mcg STK-MED ONCE .ROUTE ; Start at 13:35; Stop 07/20/16 at 13:36; Status DC Lidocaine/Sodium Bicarbonate (Buffered Lidocaine 1%) 20 ml 1X ONCE IJ Last administered on 07/20/16 14:00; Start 07/20/16 at 14:00; Stop 07/20/16 at 14:01; Status DC Midazolam HCl (Versed) 2 mg 1X ONCE IV Last administered on 07/20/16 14:00; Start 07/20/16 at 14:00; Stop 07/20/16 at 14:01; Status DC Fentanyl Citrate (Fentanyl 2ml Vial) 100 mcg 1X ONCE IV Last administered on 14:00; Start 07/20/16 at 14:00; Stop 07/20/16 at 14:01; Status DC Enoxaparin Sodium (Lovenox 40mg Syringe) 40 mg Q24H SQ ; Start 07/21/16 at 09:00 Diphenhydramine HCl 25 mg 25 mg PRN Q6HRS PRN PO ITCHING; Start 07/21/16 at 13: 30 Sodium Chloride (Iv Sodium Chloride 0.9% 500ml Bag) 500 ml @ 500 mls/hr 1X ONCE IV Last administered on 07/22/16 10:24; Start 07/22/16 at 10:15; Stop 03/30 at 11:14; Status DC Oxycodone/ Acetaminophen (Percocet 5/325) 1 tab PRN Q4HRS PRN PO MODERATE - SEVERE PAIN Last administered on 07/25/16 18:30; Start 07/23/16 at 08:30 Guaifenesin (Mucinex) 600 mg BID PO Last administered on 07/26/16 09:27; Start 07/23/16 at 10:30 Guaifenesin (Robitussin) 200 mg PRN Q4HRS PRN PO COUGH; Start 07/23/16 at 09:30 Artificial Tears (Artificial Tears) 1 drop PRN Q15MIN PRN OU DRY EYE Last administered on 07/23/16 16:29; Start 07/23/16 at 14:30 Vancomycin HCl 1 each 1 each PRN DAILY PRN MC SEE COMMENTS Last administered on 07/25/16 10:58; Start 07/25/16 at 10:45 Meropenem 1 gm/ Sodium Chloride 100 ml @ 200 mls/hr Q12HR IV Last administered on 07/26/16 09:28; Start 07/25/16 at 10:45 Vancomycin HCl 1.25 gm/Sodium Chloride 250 ml @ 167 mls/hr ONCE ONCE IV Last administered on 07/25/16 12:51; Start 07/25/16 at 11:00; Stop 07/25/16 at 12:29 ; Status DC Vancomycin HCl/ Sodium Chloride (Iv Sodium Chloride 0.9% 250ml) 250 ml @ 250 mls/hr Q24H IV Last administered on 07/26/16 12:13; Start 07/26/16 at 11:00 Vancomycin HCl 1 each 1X ONCE MC ; Start 07/27/16 at 10:30; Stop 07/27/16 at 10 :31 Benzonatate (Tessalon Perle) 100 mg [id number] PO Last administered on 07/26/16 09 :27; Start 07/25/16 at 18:00 Prednisone (Prednisone) 30 mg DAILY PO Last administered on 07/26/16 09:27; Start 07/25/16 at 18:00 Active Scripts Active Reported Symbicort 80-4.5 Mcg Inhaler (Budesonide/Formoterol Fumarate) 10.2 Gm Hfa.aer.ad 2 Puff IH BID Durezol (Difluprednate) 5 Ml Drops 5 Ml OP RIGHT EYE BID Vitals/I & O Vital Sign - Last 24 Hours 07/25/16 07/25/16 07/25/16 07/25/16 15:00 15:00 18:30 19:00 Temp 102.9 101.4 102.9 101.4 Pulse 118 110 Resp 20 20 B/P 113/86 98/72 86/65 Pulse Ox 92 92 O2 Delivery Room Air Room Air Room Air 07/25/16 07/25/16 07/25/16 07/26/16 19:30 20:00 23:00 03:06 Temp 98.2 98.5 98.2 98.5 Pulse 84 97 Resp 20 20 B/P 112/75 104/78 Pulse Ox 92 95 96 O2 Delivery Room Air Room Air Room Air Room Air O2 Flow Rate 2.0 2.0 07/26/16 07/26/16 07/26/16 07/26/16 07:00 07:00 08:00 11:00 Temp 100.4 98.1 100.4 98.1 Pulse 102 82 Resp 20 20 B/P 105/67 94/62 108/75 Pulse Ox 100 100 O2 Delivery Room Air Room Air Room Air Intake and Output 07/25/16 07/25/16 07/26/16 15:00 23:00 07:00 Intake Total 200 ml 1050 ml 100 ml Output Total 925 ml 1300 ml Balance 200 ml 125 ml -1200 ml Nutrition Consultation Dietary Evaluation: Recommendations by RD: Increase Calorie Intake, Protein supplementation Comments: continue Ensure strawberry flavor TID - 350kcal and 20g protein/serving Expected Outcomes/Goals: meet >75% est nutr needs- goal met, on going Interpretation of weight loss: >7.5% in 3 months Malnutrition Findings: Food and Nutrition Intake (Mod: <75% est energy req 7days Body Fat Depletion (Non Severe: Mild Depletion Weight Status: Underweight DAVID STEEL III DO Jul 26, 2016 13:03
[2016-07-26] MEDS: VANCOMYCIN PER PHARMACY MC PRN (13:23)
[2016-07-26] MEDS: OXYCODONE/APAP 5/325 TABLET. PO PRN ×2 (13:42→21:12)
[2016-07-26 15:00] VITALS: BP 115/79
[2016-07-26 19:00] VITALS: BP 102/71
[2016-07-26 23:00] VITALS: BP 103/71
[2016-07-27 03:00] VITALS: BP 109/76
[2016-07-27 04:01] LABS: BASO % 0 % (0-3); EOS % 0 % (0-3); HEMATOCRIT 25.4 % (39.0-53.0); HEMOGLOBIN 8.1 g/dL (13.0-17.5); LYMPH # 0.8 x10^3/uL (1.0-4.8); LYMPH % 4 % (24-48); MEAN CORPUSCULAR HEMOGLOBIN 26 pg (25-35); MEAN CORPUSCULAR HGB CONC 32 g/dL (31-37); MEAN CORPUSCULAR VOLUME 83 fL (79-100); MONO % 5 % (0-9); NEUT % 91 % (31-73); PLATELET COUNT 445 x10^3/uL (140-400); RED BLOOD COUNT 3.07 x10^6/uL (4.30-5.70); RED CELL DISTRIBUTION WIDTH 15.7 % (11.5-14.5); WHITE BLOOD COUNT 20.4 x10^3/uL (4.0-11.0)
[2016-07-27 04:12] LABS: CALCIUM 8.2 mg/dL (8.5-10.1); CREATININE 0.7 mg/dL (0.7-1.3); GFR 138.7; POTASSIUM 4.3 mmol/L (3.5-5.1)
[2016-07-27 07:00] VITALS: BP 104/73
--- NOTE | 2016-07-27 08:04 | PDOC ---
Infectious Disease Note Subjective Subjective Feels better. Occ cough but better ROS ROS GEN: Denies fevers, chills, sweats HEENT: Denies blurred vision, sore throat CV: Denies chest pain RESP: Denies shortness of air, cough GI: Denies n/v/d NEURO: Denies confusion, dizziness MSK: Denies weakness, joint pain/swelling Vital Sign Vital Signs Vital Signs Date Time Temp Pulse Resp B/P Pulse Ox O2 Delivery O2 Flow Rate FiO2 07/27/16 03:00 97.7 74 20 109/76 98 Room Air 97.7 07/26/16 23:33 2.0 Physical Exam PHYSICAL EXAM GENERAL: NAD, Alert HEENT: PERRL, OC/OP - clear NECK: Supple, no JVD, no LN LUNGS: Clear HEART: S1S2, no gallop, no murmur ABD: Soft, NT, no organomegaly, no rebound EXT: No edema, no cyanosis, thin SCHEDULE MANAGER: Alert, oriented x 3, no focal neurologic deficit SKIN: No rash IV: ok Labs Lab Laboratory Tests Test 07/27/16 03:05 White Blood Count 20.4x10^3/uL (4.0-11.0) Red Blood Count 3.07x10^6/uL (4.30-5.70) Hemoglobin 8.1g/dL (13.0-17.5) Hematocrit 25.4% (39.0-53.0) Mean Corpuscular Volume 83fL (79-100) Mean Corpuscular Hemoglobin 26pg (25-35) Mean Corpuscular Hemoglobin Concent 32g/dL (31-37) Red Cell Distribution Width 15.7% (11.5-14.5) Platelet Count 445x10^3/uL (140-400) Neutrophils (%) (Auto) 91% (31-73) Lymphocytes (%) (Auto) 4% (24-48) Monocytes (%) (Auto) 5% (0-9) Eosinophils (%) (Auto) 0% (0-3) Basophils (%) (Auto) 0% (0-3) Neutrophils # (Auto) 18.6x10^3uL (1.8-7.7) Lymphocytes # (Auto) 0.8x10^3/uL (1.0-4.8) Monocytes # (Auto) 1.1x10^3/uL (0.0-1.1) Eosinophils # (Auto) 0.0x10^3/uL (0.0-0.7) Basophils # (Auto) 0.0x10^3/uL (0.0-0.2) Sodium Level 137mmol/L (136-145) Potassium Level 4.3mmol/L (3.5-5.1) Chloride Level 100mmol/L (98-107) Carbon Dioxide Level 33mmol/L (21-32) Anion Gap 4 (6-14) Blood Urea Nitrogen 20mg/dL (8-26) Creatinine 0.7mg/dL (0.7-1.3) Estimated GFR (Cockcroft-Gault) 138.7 Glucose Level 123mg/dL (70-99) Calcium Level 8.2mg/dL (8.5-10.1) Objective Assessment Fever - ? Tumor vs ID vs Post XRT Leukocytosis - better PCN allergy -? reaction Pleural effusion Stage 4 adeno lung CA DNI/DNR Plan Plan of Care F/u cults Cont Vanc/Meropenem - hope to change to po soon F/u labs overall prognosis appears poor D/w family NANCY REEVES MD Jul 27, 2016 08:03
[2016-07-27] MEDS: MULTIVITAMIN with MINERAL TABLET. PO SCH (08:33)
[2016-07-27] MEDS: BENZONATATE 100 MG CAPSULE. PO SCH ×3 (08:33→20:18)
[2016-07-27] MEDS: GUAIFENESIN ER 600 MG TABLET.ER PO SCH ×2 (08:33→20:18)
[2016-07-27] MEDS: PREDNISONE 10 MG TABLET PO SCH (08:33)
[2016-07-27] MEDS: MEROPENEM 1 GM in IV NORMAL SALINE 100ML 100 ML IV SCH ×2 (08:34→20:19)
[2016-07-27] MEDS: ENOXAPARIN 40 MG/0.4 ML DISP.SYRIN. SQ SCH (08:44)
[2016-07-27 10:15] VITALS: BP 115/73
--- NOTE | 2016-07-27 11:10 | PDOC ---
PULMONARY PROGRESS NOTES Subjective pt feels better today Vitals Vital Signs Date Time Temp Pulse Resp B/P Pulse Ox O2 Delivery O2 Flow Rate FiO2 07/27/16 07:50 Room Air 07/27/16 03:00 97.7 74 20 109/76 98 97.7 07/26/16 23:33 2.0 General: Alert, No acute distress Lungs: Clear Cardiovascular: S1, S2 Abdomen: Soft, Non-tender Neuro Exam: Alert Extremities: No Edema Skin: Warm Labs Laboratory Tests Test 07/25/16 12:59 07/25/16 14:00 07/26/16 03:15 07/27/16 03:05 Urine Collection Type Unknown Urine Color Yellow Urine Clarity Clear Urine pH 7.5 Urine Specific [place] 1.010 Urine Protein Negativemg/dL (NEG-TRACE) Urine Glucose (UA) Negativemg/dL (NEG) Urine Ketones (Stick) Negativemg/dL (NEG) Urine Blood Negative (NEG) Urine Nitrite Negative (NEG) Urine Bilirubin Negative (NEG) Urine Urobilinogen Dipstick 1.0mg/dL (0.2 mg/dL) Urine Leukocyte Esterase Large (NEG) Urine RBC 0/HPF (0-2) Urine WBC >40/HPF (0-4) Urine Squamous Epithelial Cells Few/LPF Urine Transitional Epithelial Cells Few/LPF Urine Bacteria 0/HPF (0-FEW) Urine Trichomonas Present Influenza Type A Antigen Negative (NEGATIVE) Influenza Type B Antigen Negative (NEGATIVE) White Blood Count 30.6x10^3/uL (4.0-11.0) 20.4x10^3/uL (4.0-11.0) Red Blood Count 3.82x10^6/uL (4.30-5.70) 3.07x10^6/uL (4.30-5.70) Hemoglobin 9.9g/dL (13.0-17.5) 8.1g/dL (13.0-17.5) Hematocrit 31.8% (39.0-53.0) 25.4% (39.0-53.0) Mean Corpuscular Volume 83fL (79-100) 83fL (79-100) Mean Corpuscular Hemoglobin 26pg (25-35) 26pg (25-35) Mean Corpuscular Hemoglobin Concent 31g/dL (31-37) 32g/dL (31-37) Red Cell Distribution Width 15.4% (11.5-14.5) 15.7% (11.5-14.5) Platelet Count 524x10^3/uL (140-400) 445x10^3/uL (140-400) Neutrophils (%) (Auto) 96% (31-73) 91% (31-73) Lymphocytes (%) (Auto) 2% (24-48) 4% (24-48) Monocytes (%) (Auto) 3% (0-9) 5% (0-9) Eosinophils (%) (Auto) 0% (0-3) 0% (0-3) Basophils (%) (Auto) 0% (0-3) 0% (0-3) Neutrophils # (Auto) 29.2x10^3uL (1.8-7.7) 18.6x10^3uL (1.8-7.7) Lymphocytes # (Auto) 0.6x10^3/uL (1.0-4.8) 0.8x10^3/uL (1.0-4.8) Monocytes # (Auto) 0.8x10^3/uL (0.0-1.1) 1.1x10^3/uL (0.0-1.1) Eosinophils # (Auto) 0.0x10^3/uL (0.0-0.7) 0.0x10^3/uL (0.0-0.7) Basophils # (Auto) 0.0x10^3/uL (0.0-0.2) 0.0x10^3/uL (0.0-0.2) Segmented Neutrophils % 93% (35-66) Band Neutrophils % 3% (0-9) Lymphocytes % 2% (24-48) Monocytes % 2% (0-10) Toxic Granulation Present Platelet Estimate Increased (ADEQUATE) Anisocytosis Slight Sodium Level 137mmol/L (136-145) 137mmol/L (136-145) Potassium Level 4.5mmol/L (3.5-5.1) 4.3mmol/L (3.5-5.1) Chloride Level 98mmol/L (98-107) 100mmol/L (98-107) Carbon Dioxide Level 31mmol/L (21-32) 33mmol/L (21-32) Anion Gap 8 (6-14) 4 (6-14) Blood Urea Nitrogen 19mg/dL (8-26) 20mg/dL (8-26) Creatinine 1.0mg/dL (0.7-1.3) 0.7mg/dL (0.7-1.3) Estimated GFR (Cockcroft-Gault) 91.9 138.7 Glucose Level 179mg/dL (70-99) 123mg/dL (70-99) Calcium Level 9.0mg/dL (8.5-10.1) 8.2mg/dL (8.5-10.1) Test 07/27/16 10:15 Vancomycin Level Trough 3.3mcg/mL (10.0-20.0) Vancomycin Last Dose Date 07/26/16 Vancomycin Last Dose Time 1100 Laboratory Tests Test 07/27/16 03:05 07/27/16 10:15 White Blood Count 20.4x10^3/uL (4.0-11.0) Red Blood Count 3.07x10^6/uL (4.30-5.70) Hemoglobin 8.1g/dL (13.0-17.5) Hematocrit 25.4% (39.0-53.0) Mean Corpuscular Volume 83fL (79-100) Mean Corpuscular Hemoglobin 26pg (25-35) Mean Corpuscular Hemoglobin Concent 32g/dL (31-37) Red Cell Distribution Width 15.7% (11.5-14.5) Platelet Count 445x10^3/uL (140-400) Neutrophils (%) (Auto) 91% (31-73) Lymphocytes (%) (Auto) 4% (24-48) Monocytes (%) (Auto) 5% (0-9) Eosinophils (%) (Auto) 0% (0-3) Basophils (%) (Auto) 0% (0-3) Neutrophils # (Auto) 18.6x10^3uL (1.8-7.7) Lymphocytes # (Auto) 0.8x10^3/uL (1.0-4.8) Monocytes # (Auto) 1.1x10^3/uL (0.0-1.1) Eosinophils # (Auto) 0.0x10^3/uL (0.0-0.7) Basophils # (Auto) 0.0x10^3/uL (0.0-0.2) Sodium Level 137mmol/L (136-145) Potassium Level 4.3mmol/L (3.5-5.1) Chloride Level 100mmol/L (98-107) Carbon Dioxide Level 33mmol/L (21-32) Anion Gap 4 (6-14) Blood Urea Nitrogen 20mg/dL (8-26) Creatinine 0.7mg/dL (0.7-1.3) Estimated GFR (Cockcroft-Gault) 138.7 Glucose Level 123mg/dL (70-99) Calcium Level 8.2mg/dL (8.5-10.1) Vancomycin Level Trough 3.3mcg/mL (10.0-20.0) Vancomycin Last Dose Date 07/26/16 Vancomycin Last Dose Time 1100 Medications Active Scripts Medications Dose Route/Sig Days Date Category Symbicort 80-4.5 Mcg Inhaler (Budesonide/Formoterol Fumarate) 10.2 Gm Hfa.aer.ad 2 Puff IH BID 07/25/16 Reported Durezol (Difluprednate) 5 Ml Drops 5 Ml OP RIGHT EYE BID 07/25/16 Reported Impression . 1. 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 Now admitted with dehydration and fever. 2. Postobstructive pneumonia, which was also best visualized on CT chest from [facility]. 3. Moderate to large right pleural effusion, malignant. 4. Fever secondary to postobstructive pneumonia.resolved 5. Marked weight loss due to malignancy. 7. Underlying chronic obstructive pulmonary disease. Plan . Add Tessalon Perles and prednisone social service working on disposition 1. Recent ct chest with large hilar mass with moderate-large right effusion and post-obstructive collapse RUL/ adrenal mets. s/p right chest tube 2. XRT 3. empiric antibiotics. NATHAN HILL MD Jul 27, 2016 11:10
[2016-07-27] MEDS: VANCOMYCIN 750 MG in IV NORMAL SALINE 250ML 250 ML IV SCH (11:33)
--- NOTE | 2016-07-27 11:45 | PDOC2 ---
PALLIATIVE CARE Palliative Care Note Palliative Care Patient lethargic. Visiting with "" Discussed discharge plan. patient continues with IV antibiotics. Continue Radiation treatments Palliative Home Health would be most appropriate for patient when discharged. HAILE REYNOLDS Jul 27, 2016 11:45
[2016-07-27] MEDS: VANCOMYCIN PER PHARMACY MC PRN ×2 (11:53→11:54)
--- NOTE | 2016-07-27 12:56 | PDOC ---
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 Was is in no acute distress, and reported no acute events overnight. Fevers have ceased since yesterday AM. WBC that had spiked to 30 yesterday is now 20.4. Discussed case with RN, palliative care, and pt's . Vitals Vitals Vital Signs Date Time Temp Pulse Resp B/P Pulse Ox O2 Delivery O2 Flow Rate FiO2 07/27/16 10:15 98.2 90 20 115/73 97 Room Air 98.2 07/26/16 23:33 2.0 Physical Exam General: Alert, Oriented X3 Heart: Regular rate Lungs: Clear Abdomen: Normal bowel sounds, Soft Extremities: No cyanosis, Other (extensive nail clubbing) Skin: No breakdown Labs LABS Laboratory Tests Test 07/27/16 03:05 07/27/16 10:15 White Blood Count 20.4x10^3/uL (4.0-11.0) Red Blood Count 3.07x10^6/uL (4.30-5.70) Hemoglobin 8.1g/dL (13.0-17.5) Hematocrit 25.4% (39.0-53.0) Mean Corpuscular Volume 83fL (79-100) Mean Corpuscular Hemoglobin 26pg (25-35) Mean Corpuscular Hemoglobin Concent 32g/dL (31-37) Red Cell Distribution Width 15.7% (11.5-14.5) Platelet Count 445x10^3/uL (140-400) Neutrophils (%) (Auto) 91% (31-73) Lymphocytes (%) (Auto) 4% (24-48) Monocytes (%) (Auto) 5% (0-9) Eosinophils (%) (Auto) 0% (0-3) Basophils (%) (Auto) 0% (0-3) Neutrophils # (Auto) 18.6x10^3uL (1.8-7.7) Lymphocytes # (Auto) 0.8x10^3/uL (1.0-4.8) Monocytes # (Auto) 1.1x10^3/uL (0.0-1.1) Eosinophils # (Auto) 0.0x10^3/uL (0.0-0.7) Basophils # (Auto) 0.0x10^3/uL (0.0-0.2) Sodium Level 137mmol/L (136-145) Potassium Level 4.3mmol/L (3.5-5.1) Chloride Level 100mmol/L (98-107) Carbon Dioxide Level 33mmol/L (21-32) Anion Gap 4 (6-14) Blood Urea Nitrogen 20mg/dL (8-26) Creatinine 0.7mg/dL (0.7-1.3) Estimated GFR (Cockcroft-Gault) 138.7 Glucose Level 123mg/dL (70-99) Calcium Level 8.2mg/dL (8.5-10.1) Vancomycin Level Trough 3.3mcg/mL (10.0-20.0) Vancomycin Last Dose Date 07/26/16 Vancomycin Last Dose Time 1100 Review of Systems Review of Systems afebrile since yesterday morning Denies SOB, CP had complaints of constipation, resolved with BM this afternoon Assessment and Plan Assessmemt and Plan ASSESSMENT: - 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 - monitoring WBC, now 20.4 from 30.6 spike yesterday - cont Vanc/Meropenem per ID recommendation - will continue to monitor for fevers; remains afebrile - recheck labs daily - PTOT - appreciate palliative care on the case - appreciate subspecialty input and recommendations Problems: Comment Review of Relevant I have reviewed the following items peter (where applicable) has been applied. Labs Laboratory Tests Test 07/25/16 12:59 07/25/16 14:00 07/26/16 03:15 07/27/16 03:05 Urine Collection Type Unknown Urine Color Yellow Urine Clarity Clear Urine pH 7.5 Urine Specific [place] 1.010 Urine Protein Negativemg/dL (NEG-TRACE) Urine Glucose (UA) Negativemg/dL (NEG) Urine Ketones (Stick) Negativemg/dL (NEG) Urine Blood Negative (NEG) Urine Nitrite Negative (NEG) Urine Bilirubin Negative (NEG) Urine Urobilinogen Dipstick 1.0mg/dL (0.2 mg/dL) Urine Leukocyte Esterase Large (NEG) Urine RBC 0/HPF (0-2) Urine WBC >40/HPF (0-4) Urine Squamous Epithelial Cells Few/LPF Urine Transitional Epithelial Cells Few/LPF Urine Bacteria 0/HPF (0-FEW) Urine Trichomonas Present Influenza Type A Antigen Negative (NEGATIVE) Influenza Type B Antigen Negative (NEGATIVE) White Blood Count 30.6x10^3/uL (4.0-11.0) 20.4x10^3/uL (4.0-11.0) Red Blood Count 3.82x10^6/uL (4.30-5.70) 3.07x10^6/uL (4.30-5.70) Hemoglobin 9.9g/dL (13.0-17.5) 8.1g/dL (13.0-17.5) Hematocrit 31.8% (39.0-53.0) 25.4% (39.0-53.0) Mean Corpuscular Volume 83fL (79-100) 83fL (79-100) Mean Corpuscular Hemoglobin 26pg (25-35) 26pg (25-35) Mean Corpuscular Hemoglobin Concent 31g/dL (31-37) 32g/dL (31-37) Red Cell Distribution Width 15.4% (11.5-14.5) 15.7% (11.5-14.5) Platelet Count 524x10^3/uL (140-400) 445x10^3/uL (140-400) Neutrophils (%) (Auto) 96% (31-73) 91% (31-73) Lymphocytes (%) (Auto) 2% (24-48) 4% (24-48) Monocytes (%) (Auto) 3% (0-9) 5% (0-9) Eosinophils (%) (Auto) 0% (0-3) 0% (0-3) Basophils (%) (Auto) 0% (0-3) 0% (0-3) Neutrophils # (Auto) 29.2x10^3uL (1.8-7.7) 18.6x10^3uL (1.8-7.7) Lymphocytes # (Auto) 0.6x10^3/uL (1.0-4.8) 0.8x10^3/uL (1.0-4.8) Monocytes # (Auto) 0.8x10^3/uL (0.0-1.1) 1.1x10^3/uL (0.0-1.1) Eosinophils # (Auto) 0.0x10^3/uL (0.0-0.7) 0.0x10^3/uL (0.0-0.7) Basophils # (Auto) 0.0x10^3/uL (0.0-0.2) 0.0x10^3/uL (0.0-0.2) Segmented Neutrophils % 93% (35-66) Band Neutrophils % 3% (0-9) Lymphocytes % 2% (24-48) Monocytes % 2% (0-10) Toxic Granulation Present Platelet Estimate Increased (ADEQUATE) Anisocytosis Slight Sodium Level 137mmol/L (136-145) 137mmol/L (136-145) Potassium Level 4.5mmol/L (3.5-5.1) 4.3mmol/L (3.5-5.1) Chloride Level 98mmol/L (98-107) 100mmol/L (98-107) Carbon Dioxide Level 31mmol/L (21-32) 33mmol/L (21-32) Anion Gap 8 (6-14) 4 (6-14) Blood Urea Nitrogen 19mg/dL (8-26) 20mg/dL (8-26) Creatinine 1.0mg/dL (0.7-1.3) 0.7mg/dL (0.7-1.3) Estimated GFR (Cockcroft-Gault) 91.9 138.7 Glucose Level 179mg/dL (70-99) 123mg/dL (70-99) Calcium Level 9.0mg/dL (8.5-10.1) 8.2mg/dL (8.5-10.1) Test 07/27/16 10:15 Vancomycin Level Trough 3.3mcg/mL (10.0-20.0) Vancomycin Last Dose Date 07/26/16 Vancomycin Last Dose Time 1100 Laboratory Tests Test 07/27/16 03:05 07/27/16 10:15 White Blood Count 20.4x10^3/uL (4.0-11.0) Red Blood Count 3.07x10^6/uL (4.30-5.70) Hemoglobin 8.1g/dL (13.0-17.5) Hematocrit 25.4% (39.0-53.0) Mean Corpuscular Volume 83fL (79-100) Mean Corpuscular Hemoglobin 26pg (25-35) Mean Corpuscular Hemoglobin Concent 32g/dL (31-37) Red Cell Distribution Width 15.7% (11.5-14.5) Platelet Count 445x10^3/uL (140-400) Neutrophils (%) (Auto) 91% (31-73) Lymphocytes (%) (Auto) 4% (24-48) Monocytes (%) (Auto) 5% (0-9) Eosinophils (%) (Auto) 0% (0-3) Basophils (%) (Auto) 0% (0-3) Neutrophils # (Auto) 18.6x10^3uL (1.8-7.7) Lymphocytes # (Auto) 0.8x10^3/uL (1.0-4.8) Monocytes # (Auto) 1.1x10^3/uL (0.0-1.1) Eosinophils # (Auto) 0.0x10^3/uL (0.0-0.7) Basophils # (Auto) 0.0x10^3/uL (0.0-0.2) Sodium Level 137mmol/L (136-145) Potassium Level 4.3mmol/L (3.5-5.1) Chloride Level 100mmol/L (98-107) Carbon Dioxide Level 33mmol/L (21-32) Anion Gap 4 (6-14) Blood Urea Nitrogen 20mg/dL (8-26) Creatinine 0.7mg/dL (0.7-1.3) Estimated GFR (Cockcroft-Gault) 138.7 Glucose Level 123mg/dL (70-99) Calcium Level 8.2mg/dL (8.5-10.1) Vancomycin Level Trough 3.3mcg/mL (10.0-20.0) Vancomycin Last Dose Date 07/26/16 Vancomycin Last Dose Time 1100 Microbiology 07/25/16 Blood Culture - Preliminary, Resulted NO GROWTH AFTER 2 DAYS 07/20/16 Gram Stain - Final, Complete 07/25/16 Urine Culture - Preliminary, Resulted 07/25/16 Urine Culture Result 1 (MATTIE) - Preliminary, Resulted Medications Current Medications Sodium Chloride (Iv Sodium Chloride 0.9% 1000ml Bag) 1,000 ml @ 100 mls/hr Q10H IV Last administered on 07/19/16 14:47; Start 07/19/16 at 12:19; Stop at 22:18; Status DC Ondansetron HCl (Zofran) 4 mg PRN Q6HRS PRN IV NAUSEA/VOMITING Last administered on 07/21/16 13:21; Start 07/19/16 at 12:30 Morphine Sulfate 2 mg PRN Q1HR PRN IV PAIN Last administered on 07/21/16 20:28 ; Start 07/19/16 at 12:30 Acetaminophen/ Hydrocodone Bitart (Lortab 5/325) 1 tab PRN Q4HRS PRN PO MODEARTE - SEVERE PAIN Last administered on 07/23/16 03:32; Start 07/19/16 at 12 :30; Stop 07/23/16 at 08:24; Status DC Acetaminophen (Tylenol) 650 mg PRN Q6HRS PRN PO MILD PAIN / TEMP Last administered on 07/26/16 09:27; Start 07/19/16 at 12:30 Magnesium Hydroxide (Milk Of Magnesia) 2,400 mg PRN Q12HR PRN PO CONSTIPATION; Start 07/19/16 at 12:30 Heparin Sodium (Porcine) 5000 unit 5,000 unit Q8HRS SQ Last administered on 07/19 20:28; Start 07/19/16 at 14:00; Stop 07/21/16 at 08:43; Status DC Levofloxacin/ Dextrose (LEVAQUIN 500mg PREMIX) 100 ml @ 100 mls/hr Q24H IV Last administered on 07/24/16 15:06; Start 07/19/16 at 15:30; Stop 07/25/16 at 10:47; Status DC Albuterol/ Ipratropium (Duoneb) 3 ml RTQID NEB Last administered on 07/25/16 11:32; Start 07/19/16 at 16:00; Stop 07/25/16 at 15:31; Status DC Albuterol Sulfate (Ventolin Neb Soln) 2.5 mg PRN Q4HRS PRN NEB SHORTNESS OF BREATH; Start 07/19/16 at 16:00 Iohexol (Omnipaque 300 Mg/ml) 75 ml 1X ONCE IV Last administered on 07/19/16 16:23; Start 07/19/16 at 16:15; Stop 07/19/16 at 16:16; Status DC Info (Do NOT chart on this entry -- for MONITORING) 1 each PRN DAILY PRN MC SEE COMMENTS; Start 07/19/16 at 16:15; Stop 07/21/16 at 16:14; Status DC Enoxaparin Sodium (Lovenox Per Pharmacy Prophylaxis Dosing) 1 each PRN DAILY PRN MC SEE COMMENTS; Start 07/20/16 at 08:15; Status Cancel Multivitamins (Thera M Plus) 1 tab DAILY PO Last administered on 07/27/16 08: 33; Start 07/20/16 at 09:00 Budesonide (Pulmicort) 0.5 mg RTBID NEB Last administered on 07/25/16 07:09; Start 07/20/16 at 08:15; Stop 07/25/16 at 15:31; Status DC Enoxaparin Sodium (Lovenox 40mg Syringe) 40 mg Q24H SQ ; Start 07/20/16 at 09:00 ; Status Cancel Lidocaine/Sodium Bicarbonate (Buffered Lidocaine 1%) 20 ml STK-MED ONCE IJ ; Start 07/20/16 at 13:16; Stop 07/20/16 at 13:17; Status DC Midazolam HCl (Versed) 2 mg STK-MED ONCE .ROUTE ; Start 07/20/16 at 13:35; Stop 07/20/16 at 13:36; Status DC Fentanyl Citrate (Fentanyl 2ml Vial) 100 mcg STK-MED ONCE .ROUTE ; Start at 13:35; Stop 07/20/16 at 13:36; Status DC Lidocaine/Sodium Bicarbonate (Buffered Lidocaine 1%) 20 ml 1X ONCE IJ Last administered on 07/20/16 14:00; Start 07/20/16 at 14:00; Stop 07/20/16 at 14:01; Status DC Midazolam HCl (Versed) 2 mg 1X ONCE IV Last administered on 07/20/16 14:00; Start 07/20/16 at 14:00; Stop 07/20/16 at 14:01; Status DC Fentanyl Citrate (Fentanyl 2ml Vial) 100 mcg 1X ONCE IV Last administered on 14:00; Start 07/20/16 at 14:00; Stop 07/20/16 at 14:01; Status DC Enoxaparin Sodium (Lovenox 40mg Syringe) 40 mg Q24H SQ ; Start 07/21/16 at 09:00 Diphenhydramine HCl 25 mg 25 mg PRN Q6HRS PRN PO ITCHING Last administered on 21:13; Start 07/21/16 at 13:30 Sodium Chloride (Iv Sodium Chloride 0.9% 500ml Bag) 500 ml @ 500 mls/hr 1X ONCE IV Last administered on 07/22/16 10:24; Start 07/22/16 at 10:15; Stop 03/30 at 11:14; Status DC Oxycodone/ Acetaminophen (Percocet 5/325) 1 tab PRN Q4HRS PRN PO MODERATE - SEVERE PAIN Last administered on 07/26/16 21:12; Start 07/23/16 at 08:30 Guaifenesin (Mucinex) 600 mg BID PO Last administered on 07/27/16 08:33; Start 07/23/16 at 10:30 Guaifenesin (Robitussin) 200 mg PRN Q4HRS PRN PO COUGH; Start 07/23/16 at 09:30 Artificial Tears (Artificial Tears) 1 drop PRN Q15MIN PRN OU DRY EYE Last administered on 07/23/16 16:29; Start 07/23/16 at 14:30 Vancomycin HCl 1 each 1 each PRN DAILY PRN MC SEE COMMENTS Last administered on 07/27/16 11:54; Start 07/25/16 at 10:45; Stop 07/27/16 at 11:56; Status DC Meropenem 1 gm/ Sodium Chloride 100 ml @ 200 mls/hr Q12HR IV Last administered on 07/27/16 08:34; Start 07/25/16 at 10:45 Vancomycin HCl 1.25 gm/Sodium Chloride 250 ml @ 167 mls/hr ONCE ONCE IV Last administered on 07/25/16 12:51; Start 07/25/16 at 11:00; Stop 07/25/16 at 12:29 ; Status DC Vancomycin HCl/ Sodium Chloride (Iv Sodium Chloride 0.9% 250ml) 250 ml @ 250 mls/hr Q24H IV Last administered on 07/27/16 11:33; Start 07/26/16 at 11:00; Stop 07/27/16 at 11:48; Status DC Vancomycin HCl 1 each 1X ONCE MC Last administered on 07/27/16 10:30; Start 07/27/16 at 10:30; Stop 07/27/16 at 10:31; Status DC Benzonatate (Tessalon Perle) 100 mg [id number] PO Last administered on 07/27/16 08 :33; Start 07/25/16 at 18:00 Prednisone 30 mg 30 mg DAILY PO Last administered on 07/27/16 08:33; Start at 18:00 Vancomycin HCl/ Sodium Chloride (Iv Sodium Chloride 0.9% 250ml) 250 ml @ 250 mls/hr Q12H IV ; Start 07/27/16 at 23:00; Stop 07/27/16 at 23:00; Status DC Active Scripts Active Reported Symbicort 80-4.5 Mcg Inhaler (Budesonide/Formoterol Fumarate) 10.2 Gm Hfa.aer.ad 2 Puff IH BID Durezol (Difluprednate) 5 Ml Drops 5 Ml OP RIGHT EYE BID Vitals/I & O Vital Sign - Last 24 Hours 07/26/16 07/26/16 07/26/16 07/26/16 13:42 15:00 19:00 20:00 Temp 98.4 97.7 98.4 97.7 Pulse 96 80 Resp 20 20 B/P 115/79 102/71 Pulse Ox 100 98 O2 Delivery Room Air Room Air Room Air Room Air O2 Flow Rate 2.0 07/26/16 07/26/16 07/26/16 07/27/16 21:12 23:00 23:33 03:00 Temp 98.1 97.7 98.1 97.7 Pulse 89 74 Resp 18 20 20 B/P 103/71 109/76 Pulse Ox 97 97 98 O2 Delivery Room Air Room Air Room Air Room Air O2 Flow Rate 2.0 07/27/16 07/27/16 07/27/16 07:00 07:50 10:15 Temp 99.1 98.2 99.1 98.2 Pulse 84 90 Resp 16 20 B/P 104/73 115/73 Pulse Ox 99 97 O2 Delivery Room Air Room Air Room Air Intake and Output 07/26/16 07/26/16 07/27/16 15:00 23:00 07:00 Intake Total 500 ml 1150 ml Output Total 625 ml 900 ml Balance 500 ml 525 ml -900 ml Nutrition Consultation Dietary Evaluation: Recommendations by RD: Increase Calorie Intake, Protein supplementation Comments: continue Ensure strawberry flavor TID - 350kcal and 20g protein/serving Expected Outcomes/Goals: meet >75% est nutr needs- goal met, on going Interpretation of weight loss: >7.5% in 3 months Malnutrition Findings: Food and Nutrition Intake (Mod: <75% est energy req 7days Body Fat Depletion (Non Severe: Mild Depletion Weight Status: Underweight DAVID STEEL III DO Jul 27, 2016 12:56
[2016-07-27 14:45] VITALS: BP 105/67
[2016-07-27] MEDS: OXYCODONE/APAP 5/325 TABLET. PO PRN ×2 (15:27→20:18)
[2016-07-27 19:00] VITALS: BP 100/61
[2016-07-27 23:00] VITALS: BP 100/67
[2016-07-27] MEDS ORDERED: VANCOMYCIN 750 MG in IV NORMAL SALINE 250ML 250 ML IV SCH (23:00)
[2016-07-28 03:00] VITALS: BP 110/72
[2016-07-28 07:00] VITALS: BP 129/86
[2016-07-28] MEDS: BENZONATATE 100 MG CAPSULE. PO SCH ×3 (08:59→20:28)
[2016-07-28] MEDS: PREDNISONE 10 MG TABLET PO SCH (08:59)
[2016-07-28] MEDS: GUAIFENESIN ER 600 MG TABLET.ER PO SCH ×2 (08:59→20:28)
[2016-07-28] MEDS: MULTIVITAMIN with MINERAL TABLET. PO SCH (08:59)
[2016-07-28] MEDS: ENOXAPARIN 40 MG/0.4 ML DISP.SYRIN. SQ SCH (09:00)
--- NOTE | 2016-07-28 09:05 | PDOC ---
PULMONARY PROGRESS NOTES Subjective pt feels better today, slight sob, cough, r sided cp. has loose bm Vitals Vital Signs Date Time Temp Pulse Resp B/P Pulse Ox O2 Delivery O2 Flow Rate FiO2 07/28/16 03:00 98.2 86 20 110/72 98 Room Air 98.2 07/27/16 22:16 2.0 Comments ros as mentioned as above other sys otherwise neg General: Alert, No acute distress HEENT: Other (nc at perrl nose throat clear) Lungs: Crackles Cardiovascular: S1, S2 Abdomen: Soft, Non-tender Neuro Exam: Alert Extremities: No Edema Skin: Warm Labs Laboratory Tests Test 07/27/16 03:05 07/27/16 10:15 White Blood Count 20.4x10^3/uL (4.0-11.0) Red Blood Count 3.07x10^6/uL (4.30-5.70) Hemoglobin 8.1g/dL (13.0-17.5) Hematocrit 25.4% (39.0-53.0) Mean Corpuscular Volume 83fL (79-100) Mean Corpuscular Hemoglobin 26pg (25-35) Mean Corpuscular Hemoglobin Concent 32g/dL (31-37) Red Cell Distribution Width 15.7% (11.5-14.5) Platelet Count 445x10^3/uL (140-400) Neutrophils (%) (Auto) 91% (31-73) Lymphocytes (%) (Auto) 4% (24-48) Monocytes (%) (Auto) 5% (0-9) Eosinophils (%) (Auto) 0% (0-3) Basophils (%) (Auto) 0% (0-3) Neutrophils # (Auto) 18.6x10^3uL (1.8-7.7) Lymphocytes # (Auto) 0.8x10^3/uL (1.0-4.8) Monocytes # (Auto) 1.1x10^3/uL (0.0-1.1) Eosinophils # (Auto) 0.0x10^3/uL (0.0-0.7) Basophils # (Auto) 0.0x10^3/uL (0.0-0.2) Sodium Level 137mmol/L (136-145) Potassium Level 4.3mmol/L (3.5-5.1) Chloride Level 100mmol/L (98-107) Carbon Dioxide Level 33mmol/L (21-32) Anion Gap 4 (6-14) Blood Urea Nitrogen 20mg/dL (8-26) Creatinine 0.7mg/dL (0.7-1.3) Estimated GFR (Cockcroft-Gault) 138.7 Glucose Level 123mg/dL (70-99) Calcium Level 8.2mg/dL (8.5-10.1) Vancomycin Level Trough 3.3mcg/mL (10.0-20.0) Vancomycin Last Dose Date 07/26/16 Vancomycin Last Dose Time 1100 Laboratory Tests Test 07/27/16 10:15 Vancomycin Level Trough 3.3mcg/mL (10.0-20.0) Vancomycin Last Dose Date 07/26/16 Vancomycin Last Dose Time 1100 Medications Active Scripts Medications Dose Route/Sig Days Date Category Symbicort 80-4.5 Mcg Inhaler (Budesonide/Formoterol Fumarate) 10.2 Gm Hfa.aer.ad 2 Puff IH BID 07/25/16 Reported Durezol (Difluprednate) 5 Ml Drops 5 Ml OP RIGHT EYE BID 07/25/16 Reported Comments cxr reviewed, Impression . 1. 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 Now admitted with dehydration and fever. 2. Postobstructive pneumonia, which was also best visualized on CT chest from [facility]. 3. Moderate to large right pleural effusion, malignant. 4. Fever secondary to postobstructive pneumonia.resolved 5. Marked weight loss due to malignancy. 7. Underlying chronic obstructive pulmonary disease. Plan . Add Tessalon Perles and prednisone with taper by 10 mg q 3d social service working on disposition 1. Recent ct chest with large hilar mass with moderate-large right effusion and post-obstructive collapse RUL/ adrenal mets. s/p right chest tube 2. XRT 3. empiric antibiotics. 4. bronchodilator 5. pain control discussed w rn, pt JOHN RAMIREZ MD Jul 28, 2016 09:05
--- NOTE | 2016-07-28 09:59 | PDOC ---
PROGRESS NOTES Subjective Subjective Patient was seen in room 500. He was sleeping quite comfortably. Patient's said that he was eating better, feeling better and has more strength, and does walk around the floor. O/E, he deffinately looks a little bright, fairly good hydration and good good color. Did not feel any adenopathy in bilateral neck. Lungs on auscultation with good air entry, heart with RRR. He is tolerating the treatments well. He was encouraged to increase intake, and skin care was explained. Objective Objective Vital Signs Date Time Temp Pulse Resp B/P Pulse Ox O2 Delivery O2 Flow Rate FiO2 07/28/16 07:00 97.9 87 18 129/86 100 Room Air 97.9 07/27/16 22:16 2.0 Intake and Output 07/28/16 07:00 Intake Total 840 ml Output Total 1375 ml Balance -535 ml Intake Oral 840 ml Output Urine Total 1375 ml # Voids 1 # Bowel Movements 1 Assessment Assessment Problems Medical Problems: (1) Lung cancer Status: Acute Comment Review of Relevant I have reviewed the following items peter (where applicable) has been applied. Labs Laboratory Tests Test 07/27/16 03:05 07/27/16 10:15 White Blood Count 20.4x10^3/uL (4.0-11.0) Red Blood Count 3.07x10^6/uL (4.30-5.70) Hemoglobin 8.1g/dL (13.0-17.5) Hematocrit 25.4% (39.0-53.0) Mean Corpuscular Volume 83fL (79-100) Mean Corpuscular Hemoglobin 26pg (25-35) Mean Corpuscular Hemoglobin Concent 32g/dL (31-37) Red Cell Distribution Width 15.7% (11.5-14.5) Platelet Count 445x10^3/uL (140-400) Neutrophils (%) (Auto) 91% (31-73) Lymphocytes (%) (Auto) 4% (24-48) Monocytes (%) (Auto) 5% (0-9) Eosinophils (%) (Auto) 0% (0-3) Basophils (%) (Auto) 0% (0-3) Neutrophils # (Auto) 18.6x10^3uL (1.8-7.7) Lymphocytes # (Auto) 0.8x10^3/uL (1.0-4.8) Monocytes # (Auto) 1.1x10^3/uL (0.0-1.1) Eosinophils # (Auto) 0.0x10^3/uL (0.0-0.7) Basophils # (Auto) 0.0x10^3/uL (0.0-0.2) Sodium Level 137mmol/L (136-145) Potassium Level 4.3mmol/L (3.5-5.1) Chloride Level 100mmol/L (98-107) Carbon Dioxide Level 33mmol/L (21-32) Anion Gap 4 (6-14) Blood Urea Nitrogen 20mg/dL (8-26) Creatinine 0.7mg/dL (0.7-1.3) Estimated GFR (Cockcroft-Gault) 138.7 Glucose Level 123mg/dL (70-99) Calcium Level 8.2mg/dL (8.5-10.1) Vancomycin Level Trough 3.3mcg/mL (10.0-20.0) Vancomycin Last Dose Date 07/26/16 Vancomycin Last Dose Time 1100 Laboratory Tests Test 07/27/16 10:15 Vancomycin Level Trough 3.3mcg/mL (10.0-20.0) Vancomycin Last Dose Date 07/26/16 Vancomycin Last Dose Time 1100 Microbiology 07/25/16 Blood Culture - Preliminary, Resulted NO GROWTH AFTER 2 DAYS 07/20/16 Gram Stain - Final, Complete 07/25/16 Urine Culture - Final, Complete 07/25/16 Urine Culture Result 1 (MATTIE) - Final, Complete Medications Current Medications Sodium Chloride (Iv Sodium Chloride 0.9% 1000ml Bag) 1,000 ml @ 100 mls/hr Q10H IV Last administered on 07/19/16 14:47; Start 07/19/16 at 12:19; Stop at 22:18; Status DC Ondansetron HCl (Zofran) 4 mg PRN Q6HRS PRN IV NAUSEA/VOMITING Last administered on 07/21/16 13:21; Start 07/19/16 at 12:30 Morphine Sulfate 2 mg PRN Q1HR PRN IV PAIN Last administered on 07/21/16 20:28 ; Start 07/19/16 at 12:30 Acetaminophen/ Hydrocodone Bitart (Lortab 5/325) 1 tab PRN Q4HRS PRN PO MODEARTE - SEVERE PAIN Last administered on 07/23/16 03:32; Start 07/19/16 at 12 :30; Stop 07/23/16 at 08:24; Status DC Acetaminophen (Tylenol) 650 mg PRN Q6HRS PRN PO MILD PAIN / TEMP Last administered on 07/26/16 09:27; Start 07/19/16 at 12:30 Magnesium Hydroxide (Milk Of Magnesia) 2,400 mg PRN Q12HR PRN PO CONSTIPATION; Start 07/19/16 at 12:30 Heparin Sodium (Porcine) 5000 unit 5,000 unit Q8HRS SQ Last administered on 07/19 20:28; Start 07/19/16 at 14:00; Stop 07/21/16 at 08:43; Status DC Levofloxacin/ Dextrose (LEVAQUIN 500mg PREMIX) 100 ml @ 100 mls/hr Q24H IV Last administered on 07/24/16 15:06; Start 07/19/16 at 15:30; Stop 07/25/16 at 10:47; Status DC Albuterol/ Ipratropium (Duoneb) 3 ml RTQID NEB Last administered on 07/25/16 11:32; Start 07/19/16 at 16:00; Stop 07/25/16 at 15:31; Status DC Albuterol Sulfate (Ventolin Neb Soln) 2.5 mg PRN Q4HRS PRN NEB SHORTNESS OF BREATH; Start 07/19/16 at 16:00; Stop 07/28/16 at 16:00 Iohexol (Omnipaque 300 Mg/ml) 75 ml 1X ONCE IV Last administered on 07/19/16 16:23; Start 07/19/16 at 16:15; Stop 07/19/16 at 16:16; Status DC Info (Do NOT chart on this entry -- for MONITORING) 1 each PRN DAILY PRN MC SEE COMMENTS; Start 07/19/16 at 16:15; Stop 07/21/16 at 16:14; Status DC Enoxaparin Sodium (Lovenox Per Pharmacy Prophylaxis Dosing) 1 each PRN DAILY PRN MC SEE COMMENTS; Start 07/20/16 at 08:15; Status Cancel Multivitamins (Thera M Plus) 1 tab DAILY PO Last administered on 07/28/16 08: 59; Start 07/20/16 at 09:00 Budesonide (Pulmicort) 0.5 mg RTBID NEB Last administered on 07/25/16 07:09; Start 07/20/16 at 08:15; Stop 07/25/16 at 15:31; Status DC Enoxaparin Sodium (Lovenox 40mg Syringe) 40 mg Q24H SQ ; Start 07/20/16 at 09:00 ; Status Cancel Lidocaine/Sodium Bicarbonate (Buffered Lidocaine 1%) 20 ml STK-MED ONCE IJ ; Start 07/20/16 at 13:16; Stop 07/20/16 at 13:17; Status DC Midazolam HCl (Versed) 2 mg STK-MED ONCE .ROUTE ; Start 07/20/16 at 13:35; Stop 07/20/16 at 13:36; Status DC Fentanyl Citrate (Fentanyl 2ml Vial) 100 mcg STK-MED ONCE .ROUTE ; Start at 13:35; Stop 07/20/16 at 13:36; Status DC Lidocaine/Sodium Bicarbonate (Buffered Lidocaine 1%) 20 ml 1X ONCE IJ Last administered on 07/20/16 14:00; Start 07/20/16 at 14:00; Stop 07/20/16 at 14:01; Status DC Midazolam HCl (Versed) 2 mg 1X ONCE IV Last administered on 07/20/16 14:00; Start 07/20/16 at 14:00; Stop 07/20/16 at 14:01; Status DC Fentanyl Citrate (Fentanyl 2ml Vial) 100 mcg 1X ONCE IV Last administered on 14:00; Start 07/20/16 at 14:00; Stop 07/20/16 at 14:01; Status DC Enoxaparin Sodium (Lovenox 40mg Syringe) 40 mg Q24H SQ ; Start 07/21/16 at 09:00 Diphenhydramine HCl 25 mg 25 mg PRN Q6HRS PRN PO ITCHING Last administered on 21:13; Start 07/21/16 at 13:30 Sodium Chloride (Iv Sodium Chloride 0.9% 500ml Bag) 500 ml @ 500 mls/hr 1X ONCE IV Last administered on 07/22/16 10:24; Start 07/22/16 at 10:15; Stop 03/30 at 11:14; Status DC Oxycodone/ Acetaminophen (Percocet 5/325) 1 tab PRN Q4HRS PRN PO MODERATE - SEVERE PAIN Last administered on 07/27/16 20:18; Start 07/23/16 at 08:30 Guaifenesin (Mucinex) 600 mg BID PO Last administered on 07/28/16 08:59; Start 07/23/16 at 10:30 Guaifenesin (Robitussin) 200 mg PRN Q4HRS PRN PO COUGH; Start 07/23/16 at 09:30 Artificial Tears (Artificial Tears) 1 drop PRN Q15MIN PRN OU DRY EYE Last administered on 07/23/16 16:29; Start 07/23/16 at 14:30 Vancomycin HCl 1 each 1 each PRN DAILY PRN MC SEE COMMENTS Last administered on 07/27/16 11:54; Start 07/25/16 at 10:45; Stop 07/27/16 at 11:56; Status DC Meropenem 1 gm/ Sodium Chloride 100 ml @ 200 mls/hr Q12HR IV Last administered on 07/27/16 20:19; Start 07/25/16 at 10:45 Vancomycin HCl 1.25 gm/Sodium Chloride 250 ml @ 167 mls/hr ONCE ONCE IV Last administered on 07/25/16 12:51; Start 07/25/16 at 11:00; Stop 07/25/16 at 12:29 ; Status DC Vancomycin HCl/ Sodium Chloride (Iv Sodium Chloride 0.9% 250ml) 250 ml @ 250 mls/hr Q24H IV Last administered on 07/27/16 11:33; Start 07/26/16 at 11:00; Stop 07/27/16 at 11:48; Status DC Vancomycin HCl 1 each 1X ONCE MC Last administered on 07/27/16 10:30; Start 07/27/16 at 10:30; Stop 07/27/16 at 10:31; Status DC Benzonatate (Tessalon Perle) 100 mg [id number] PO Last administered on 07/28/16 08 :59; Start 07/25/16 at 18:00 Prednisone 30 mg 30 mg DAILY PO Last administered on 07/28/16t 08:59; Start at 18:00 Vancomycin HCl/ Sodium Chloride (Iv Sodium Chloride 0.9% 250ml) 250 ml @ 250 mls/hr Q12H IV ; Start 07/27/16 at 23:00; Stop 07/27/16 at 23:00; Status DC Albuterol Sulfate (Ventolin Neb Soln) 2.5 mg QID NEB ; Start 07/28/16 at 13:00 Active Scripts Active Reported Symbicort 80-4.5 Mcg Inhaler (Budesonide/Formoterol Fumarate) 10.2 Gm Hfa.aer.ad 2 Puff IH BID Durezol (Difluprednate) 5 Ml Drops 5 Ml OP RIGHT EYE BID Vitals/I & O Vital Sign - Last 24 Hours 07/27/16 07/27/16 07/27/16 07/27/16 10:15 14:45 15:27 19:00 Temp 98.2 97.9 97.9 98.2 97.9 97.9 Pulse 90 83 76 Resp 20 20 20 B/P 115/73 105/67 100/61 Pulse Ox 97 97 98 O2 Delivery Room Air Room Air Room Air Room Air 07/27/16 07/27/16 07/27/16 07/27/16 20:00 20:18 22:16 23:00 Temp 97.7 97.7 Pulse 85 Resp 20 18 20 B/P 100/67 Pulse Ox 97 97 98 O2 Delivery Room Air Room Air Room Air Room Air O2 Flow Rate 2.0 2.0 2.0 07/28/16 07/28/16 03:00 07:00 Temp 98.2 97.9 98.2 97.9 Pulse 86 87 Resp 20 18 B/P 110/72 129/86 Pulse Ox 98 100 O2 Delivery Room Air Room Air Intake and Output 07/27/16 07/27/16 07/28/16 15:00 23:00 07:00 Intake Total 360 ml 480 ml Output Total 875 ml 500 ml Balance -515 ml 480 ml -500 ml Nutrition Consultation Dietary Evaluation: Recommendations by RD: Increase Calorie Intake, Protein supplementation Comments: continue Ensure strawberry flavor TID - 350kcal and 20g protein/serving Expected Outcomes/Goals: meet >75% est nutr needs- goal met, on going Interpretation of weight loss: >7.5% in 3 months Malnutrition Findings: Food and Nutrition Intake (Mod: <75% est energy req 7days Body Fat Depletion (Non Severe: Mild Depletion Weight Status: Underweight SRI MORE MD Jul 28, 2016 09:59
--- NOTE | 2016-07-28 10:02 | PDOC ---
Infectious Disease Note Subjective Subjective Feels better. Occ cough but better Says he is passing a lot of stool but no cramps or bloating and passing a lot of urine also Not dizzy or light headed ROS ROS GEN: Denies fevers, chills, sweats HEENT: Denies blurred vision, sore throat CV: Denies chest pain RESP: Denies shortness of air, cough GI: Denies n/v/d NEURO: Denies confusion, dizziness MSK: Denies weakness, joint pain/swelling Vital Sign Vital Signs Vital Signs Date Time Temp Pulse Resp B/P Pulse Ox O2 Delivery O2 Flow Rate FiO2 07/28/16 07:00 97.9 87 18 129/86 100 Room Air 97.9 07/27/16 22:16 2.0 Physical Exam PHYSICAL EXAM GENERAL: NAD, Alert, Looks comfortable HEENT: PERRL, OC/OP- clear NECK: Supple, no JVD, no LN LUNGS: Clear HEART: S1S2, no gallop, no murmur ABD: Soft, NT, no organomegaly, no rebound EXT: No edema, no cyanosis.Thin [employer]IL[employer] STOKER: Alert, oriented x 3, no focal neurologic deficit SKIN: No rash IV: ok Labs Lab Laboratory Tests Test 07/27/16 10:15 Vancomycin Level Trough 3.3mcg/mL (10.0-20.0) Vancomycin Last Dose Date 07/26/16 Vancomycin Last Dose Time 1100 Objective Assessment Fever - ? Tumor vs ID vs Post XRT Leukocytosis - better PCN allergy -? reaction Pleural effusion Stage 4 adeno lung CA DNI/DNR Plan Plan of Care F/u cults D/cont Vanc/Meropenem Begin Cefpodox/Doxy/Flagyl - he wants something to go home with Probiotics If fever with bloating/cramps/diarrhea will need C-diff checked F/u labs overall prognosis appears poor D/w and Mr. Guillen rationale and risk of abx. Has tolerated Meropenem. NANCY REEVES MD Jul 28, 2016 10:01
[2016-07-28 11:00] VITALS: BP 120/81
[2016-07-28] MEDS: DOXYCYCLINE HYCLATE 100 MG TABLET PO SCH ×2 (11:10→20:28)
[2016-07-28] MEDS: METRONIDAZOLE 500 MG TABLET. PO SCH ×2 (11:10→20:28)
[2016-07-28] MEDS: LACTOBACILLUS ACIDOPH & BULGAR 1 TABLET. PO SCH ×2 (11:10→17:36)
[2016-07-28] MEDS: CEFPODOXIME PROXETIL 100 MG TABLET PO SCH ×2 (11:10→20:28)
--- NOTE | 2016-07-28 12:13 | PDOC ---
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 Was is in no acute distress, and reported no acute events overnight. Still no fevers and feeling relatively well. Today's WBC result not back yet, yesterday was 20.4. Pt complaining of many episodes of stooling and urination, though these do not seem concerning. Pt had until yesterday been constipated. Stool is not watery. Pt doesn't feel that he is having incomplete voiding of urine. The team provided assurance. Discussed case with RN, palliative care, and pt's . 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 - monitoring WBC, awaiting today's result; yesterday 20.4 - antiobiotics per ID recommendation - will continue to monitor for fevers; remains afebrile - recheck labs daily - PTOT - appreciate palliative care on the case - appreciate subspecialty input and recommendations Problems: Comment Review of Relevant I have reviewed the following items peter (where applicable) has been applied. Labs Laboratory Tests Test 07/27/16 03:05 07/27/16 10:15 White Blood Count 20.4x10^3/uL (4.0-11.0) Red Blood Count 3.07x10^6/uL (4.30-5.70) Hemoglobin 8.1g/dL (13.0-17.5) Hematocrit 25.4% (39.0-53.0) Mean Corpuscular Volume 83fL (79-100) Mean Corpuscular Hemoglobin 26pg (25-35) Mean Corpuscular Hemoglobin Concent 32g/dL (31-37) Red Cell Distribution Width 15.7% (11.5-14.5) Platelet Count 445x10^3/uL (140-400) Neutrophils (%) (Auto) 91% (31-73) Lymphocytes (%) (Auto) 4% (24-48) Monocytes (%) (Auto) 5% (0-9) Eosinophils (%) (Auto) 0% (0-3) Basophils (%) (Auto) 0% (0-3) Neutrophils # (Auto) 18.6x10^3uL (1.8-7.7) Lymphocytes # (Auto) 0.8x10^3/uL (1.0-4.8) Monocytes # (Auto) 1.1x10^3/uL (0.0-1.1) Eosinophils # (Auto) 0.0x10^3/uL (0.0-0.7) Basophils # (Auto) 0.0x10^3/uL (0.0-0.2) Sodium Level 137mmol/L (136-145) Potassium Level 4.3mmol/L (3.5-5.1) Chloride Level 100mmol/L (98-107) Carbon Dioxide Level 33mmol/L (21-32) Anion Gap 4 (6-14) Blood Urea Nitrogen 20mg/dL (8-26) Creatinine 0.7mg/dL (0.7-1.3) Estimated GFR (Cockcroft-Gault) 138.7 Glucose Level 123mg/dL (70-99) Calcium Level 8.2mg/dL (8.5-10.1) Vancomycin Level Trough 3.3mcg/mL (10.0-20.0) Vancomycin Last Dose Date 07/26/16 Vancomycin Last Dose Time 1100 Microbiology 07/25/16 Blood Culture - Preliminary, Resulted NO GROWTH AFTER 3 DAYS 07/20/16 Gram Stain - Final, Complete 07/25/16 Urine Culture - Final, Complete 07/25/16 Urine Culture Result 1 (MATTIE) - Final, Complete Medications Current Medications Sodium Chloride (Iv Sodium Chloride 0.9% 1000ml Bag) 1,000 ml @ 100 mls/hr Q10H IV Last administered on 07/19/16 14:47; Start 07/19/16 at 12:19; Stop at 22:18; Status DC Ondansetron HCl (Zofran) 4 mg PRN Q6HRS PRN IV NAUSEA/VOMITING Last administered on 07/21/16 13:21; Start 07/19/16 at 12:30 Morphine Sulfate 2 mg PRN Q1HR PRN IV PAIN Last administered on 07/21/16 20:28 ; Start 07/19/16 at 12:30 Acetaminophen/ Hydrocodone Bitart (Lortab 5/325) 1 tab PRN Q4HRS PRN PO MODEARTE - SEVERE PAIN Last administered on 07/23/16 03:32; Start 07/19/16 at 12 :30; Stop 07/23/16 at 08:24; Status DC Acetaminophen (Tylenol) 650 mg PRN Q6HRS PRN PO MILD PAIN / TEMP Last administered on 07/26/16 09:27; Start 07/19/16 at 12:30 Magnesium Hydroxide (Milk Of Magnesia) 2,400 mg PRN Q12HR PRN PO CONSTIPATION; Start 07/19/16 at 12:30 Heparin Sodium (Porcine) 5000 unit 5,000 unit Q8HRS SQ Last administered on 07/19 20:28; Start 07/19/16 at 14:00; Stop 07/21/16 at 08:43; Status DC Levofloxacin/ Dextrose (LEVAQUIN 500mg PREMIX) 100 ml @ 100 mls/hr Q24H IV Last administered on 07/24/16 15:06; Start 07/19/16 at 15:30; Stop 07/25/16 at 10:47; Status DC Albuterol/ Ipratropium (Duoneb) 3 ml RTQID NEB Last administered on 07/25/16 11:32; Start 07/19/16 at 16:00; Stop 07/25/16 at 15:31; Status DC Albuterol Sulfate (Ventolin Neb Soln) 2.5 mg PRN Q4HRS PRN NEB SHORTNESS OF BREATH; Start 07/19/16 at 16:00; Stop 07/28/16 at 16:00 Iohexol (Omnipaque 300 Mg/ml) 75 ml 1X ONCE IV Last administered on 07/19/16 16:23; Start 07/19/16 at 16:15; Stop 07/19/16 at 16:16; Status DC Info (Do NOT chart on this entry -- for MONITORING) 1 each PRN DAILY PRN MC SEE COMMENTS; Start 07/19/16 at 16:15; Stop 07/21/16 at 16:14; Status DC Enoxaparin Sodium (Lovenox Per Pharmacy Prophylaxis Dosing) 1 each PRN DAILY PRN MC SEE COMMENTS; Start 07/20/16 at 08:15; Status Cancel Multivitamins (Thera M Plus) 1 tab DAILY PO Last administered on 07/28/16 08: 59; Start 07/20/16 at 09:00 Budesonide (Pulmicort) 0.5 mg RTBID NEB Last administered on 07/25/16 07:09; Start 07/20/16 at 08:15; Stop 07/25/16 at 15:31; Status DC Enoxaparin Sodium (Lovenox 40mg Syringe) 40 mg Q24H SQ ; Start 07/20/16 at 09:00 ; Status Cancel Lidocaine/Sodium Bicarbonate (Buffered Lidocaine 1%) 20 ml STK-MED ONCE IJ ; Start 07/20/16 at 13:16; Stop 07/20/16 at 13:17; Status DC Midazolam HCl (Versed) 2 mg STK-MED ONCE .ROUTE ; Start 07/20/16 at 13:35; Stop 07/20/16 at 13:36; Status DC Fentanyl Citrate (Fentanyl 2ml Vial) 100 mcg STK-MED ONCE .ROUTE ; Start at 13:35; Stop 07/20/16 at 13:36; Status DC Lidocaine/Sodium Bicarbonate (Buffered Lidocaine 1%) 20 ml 1X ONCE IJ Last administered on 07/20/16 14:00; Start 07/20/16 at 14:00; Stop 07/20/16 at 14:01; Status DC Midazolam HCl (Versed) 2 mg 1X ONCE IV Last administered on 07/20/16 14:00; Start 07/20/16 at 14:00; Stop 07/20/16 at 14:01; Status DC Fentanyl Citrate (Fentanyl 2ml Vial) 100 mcg 1X ONCE IV Last administered on 14:00; Start 07/20/16 at 14:00; Stop 07/20/16 at 14:01; Status DC Enoxaparin Sodium (Lovenox 40mg Syringe) 40 mg Q24H SQ ; Start 07/21/16 at 09:00 Diphenhydramine HCl 25 mg 25 mg PRN Q6HRS PRN PO ITCHING Last administered on 21:13; Start 07/21/16 at 13:30 Sodium Chloride (Iv Sodium Chloride 0.9% 500ml Bag) 500 ml @ 500 mls/hr 1X ONCE IV Last administered on 07/22/16 10:24; Start 07/22/16 at 10:15; Stop 03/30 at 11:14; Status DC Oxycodone/ Acetaminophen (Percocet 5/325) 1 tab PRN Q4HRS PRN PO MODERATE - SEVERE PAIN Last administered on 07/27/16 20:18; Start 07/23/16 at 08:30 Guaifenesin (Mucinex) 600 mg BID PO Last administered on 07/28/16 08:59; Start 07/23/16 at 10:30 Guaifenesin (Robitussin) 200 mg PRN Q4HRS PRN PO COUGH; Start 07/23/16 at 09:30 Artificial Tears (Artificial Tears) 1 drop PRN Q15MIN PRN OU DRY EYE Last administered on 07/23/16 16:29; Start 07/23/16 at 14:30 Vancomycin HCl 1 each 1 each PRN DAILY PRN MC SEE COMMENTS Last administered on 07/27/16 11:54; Start 07/25/16 at 10:45; Stop 07/27/16 at 11:56; Status DC Meropenem 1 gm/ Sodium Chloride 100 ml @ 200 mls/hr Q12HR IV Last administered on 07/27/16 20:19; Start 07/25/16 at 10:45; Stop 07/28/16 at 10:00 ; Status DC Vancomycin HCl 1.25 gm/Sodium Chloride 250 ml @ 167 mls/hr ONCE ONCE IV Last administered on 07/25/16 12:51; Start 07/25/16 at 11:00; Stop 07/25/16 at 12:29 ; Status DC Vancomycin HCl/ Sodium Chloride (Iv Sodium Chloride 0.9% 250ml) 250 ml @ 250 mls/hr Q24H IV Last administered on 07/27/16 11:33; Start 07/26/16 at 11:00; Stop 07/27/16 at 11:48; Status DC Vancomycin HCl 1 each 1X ONCE MC Last administered on 07/27/16 10:30; Start 07/27/16 at 10:30; Stop 07/27/16 at 10:31; Status DC Benzonatate (Tessalon Perle) 100 mg [id number] PO Last administered on 07/28/16 08 :59; Start 07/25/16 at 18:00 Prednisone 30 mg 30 mg DAILY PO Last administered on 07/28/16 08:59; Start at 18:00 Vancomycin HCl/ Sodium Chloride (Iv Sodium Chloride 0.9% 250ml) 250 ml @ 250 mls/hr Q12H IV ; Start 07/27/16 at 23:00; Stop 07/27/16 at 23:00; Status DC Albuterol Sulfate (Ventolin Neb Soln) 2.5 mg QID NEB ; Start 07/28/16 at 13:00 Doxycycline Hyclate (Vibra-Tab) 100 mg BID PO Last administered on 07/28/16 11 :10; Start 07/28/16 at 11:00 Cefpodoxime Proxetil (Vantin) 200 mg BID PO Last administered on 07/28/16 11: 10; Start 07/28/16 at 10:00 Metronidazole (Flagyl) 500 mg Q12HR PO Last administered on 07/28/16 11:10; Start 07/28/16 at 11:00 Lactobacillus Acidophilus (Bacid, Nuvia-Bid) 1 tab TIDWMEALS PO Last administered on 3/17/17at 11:10; Start 07/28/16 at 12:00 Active Scripts Active Reported Symbicort 80-4.5 Mcg Inhaler (Budesonide/Formoterol Fumarate) 10.2 Gm Hfa.aer.ad 2 Puff IH BID Durezol (Difluprednate) 5 Ml Drops 5 Ml OP RIGHT EYE BID Vitals/I & O Vital Sign - Last 24 Hours 07/27/16 07/27/16 07/27/16 07/27/16 14:45 15:27 19:00 20:00 Temp 97.9 97.9 97.9 97.9 Pulse 83 76 Resp 20 20 B/P 105/67 100/61 Pulse Ox 97 98 O2 Delivery Room Air Room Air Room Air Room Air O2 Flow Rate 2.0 07/27/16 07/27/16 07/27/16 07/28/16 20:18 22:16 23:00 03:00 Temp 97.7 98.2 97.7 98.2 Pulse 85 86 Resp 20 18 20 20 B/P 100/67 110/72 Pulse Ox 97 97 98 98 O2 Delivery Room Air Room Air Room Air Room Air O2 Flow Rate 2.0 2.0 07/28/16 07/28/16 07:00 11:00 Temp 97.9 98.8 97.9 98.8 Pulse 87 88 Resp 18 18 B/P 129/86 120/81 Pulse Ox 100 100 O2 Delivery Room Air Room Air Intake and Output 07/27/16 07/27/16 07/28/16 15:00 23:00 07:00 Intake Total 360 ml 480 ml Output Total 875 ml 500 ml Balance -515 ml 480 ml -500 ml Nutrition Consultation Dietary Evaluation: Recommendations by RD: Increase Calorie Intake, Protein supplementation Comments: continue Ensure strawberry flavor - 350kcal and 20g protein/serving Expected Outcomes/Goals: meet >75% est nutr needs- goal met, on going Interpretation of weight loss: >7.5% in 3 months Malnutrition Findings: Food and Nutrition Intake (Mod: <75% est energy req 7days Body Fat Depletion (Non Severe: Mild Depletion Weight Status: Underweight CASTLE,NIAL K III DO Jul 28, 2016 12:13
[2016-07-28 12:30] LABS: BASO % 0 % (0-3); EOS % 0 % (0-3); HEMATOCRIT 28.7 % (39.0-53.0); HEMOGLOBIN 8.9 g/dL (13.0-17.5); LYMPH # 0.3 x10^3/uL (1.0-4.8); LYMPH % 2 % (24-48); MEAN CORPUSCULAR HEMOGLOBIN 26 pg (25-35); MEAN CORPUSCULAR HGB CONC 31 g/dL (31-37); MEAN CORPUSCULAR VOLUME 83 fL (79-100); MONO % 3 % (0-9); NEUT % 95 % (31-73); PLATELET COUNT 529 x10^3/uL (140-400); RED BLOOD COUNT 3.46 x10^6/uL (4.30-5.70); RED CELL DISTRIBUTION WIDTH 15.3 % (11.5-14.5); WHITE BLOOD COUNT 14.5 x10^3/uL (4.0-11.0)
[2016-07-28 12:57] LABS: CALCIUM 8.3 mg/dL (8.5-10.1); CREATININE 0.8 mg/dL (0.7-1.3); GFR 118.9
[2016-07-28] MEDS ORDERED: ALBUTEROL SULFATE 2.5 MG/3 ML NEBU. NEB SCH (13:00)
[2016-07-28 14:35] VITALS: BP 128/85
[2016-07-28 19:00] VITALS: BP 122/83
[2016-07-28] MEDS ORDERED: TEMAZEPAM 15 MG CAPSULE PO PRN (21:15)
[2016-07-28 23:00] VITALS: BP 119/81
[2016-07-29 03:00] VITALS: BP 124/85
[2016-07-29 06:38] LABS: BASO % 0 % (0-3); EOS % 0 % (0-3); HEMATOCRIT 26.2 % (39.0-53.0); HEMOGLOBIN 8.3 g/dL (13.0-17.5); LYMPH # 0.7 x10^3/uL (1.0-4.8); LYMPH % 5 % (24-48); MEAN CORPUSCULAR HEMOGLOBIN 26 pg (25-35); MEAN CORPUSCULAR HGB CONC 32 g/dL (31-37); MEAN CORPUSCULAR VOLUME 82 fL (79-100); MONO % 6 % (0-9); NEUT % 89 % (31-73); PLATELET COUNT 517 x10^3/uL (140-400); RED BLOOD COUNT 3.18 x10^6/uL (4.30-5.70); RED CELL DISTRIBUTION WIDTH 15.3 % (11.5-14.5); WHITE BLOOD COUNT 15.1 x10^3/uL (4.0-11.0)
[2016-07-29 06:48] LABS: CALCIUM 8.2 mg/dL (8.5-10.1); CREATININE 0.7 mg/dL (0.7-1.3); GFR 138.7
[2016-07-29 07:00] VITALS: BP 136/89
--- NOTE | 2016-07-29 08:49 | PDOC ---
PULMONARY PROGRESS NOTES Subjective pt feels better today, slight sob, cough, r sided cp. wants to go home Vitals Vital Signs Date Time Temp Pulse Resp B/P Pulse Ox O2 Delivery O2 Flow Rate FiO2 07/29/16 07:00 98.1 83 20 136/89 97 Room Air 98.1 Comments ros as mentioned as above other sys otherwise neg General: Alert, No acute distress HEENT: Other (nc at perrl nose throat clear) Lungs: Crackles Cardiovascular: S1, S2 Abdomen: Soft, Non-tender Neuro Exam: Alert Extremities: No Edema Skin: Warm Labs Laboratory Tests Test 07/27/16 10:15 07/28/16 11:40 07/29/16 06:25 Vancomycin Level Trough 3.3mcg/mL (10.0-20.0) Vancomycin Last Dose Date 07/26/16 Vancomycin Last Dose Time 1100 White Blood Count 14.5x10^3/uL (4.0-11.0) 15.1x10^3/uL (4.0-11.0) Red Blood Count 3.46x10^6/uL (4.30-5.70) 3.18x10^6/uL (4.30-5.70) Hemoglobin 8.9g/dL (13.0-17.5) 8.3g/dL (13.0-17.5) Hematocrit 28.7% (39.0-53.0) 26.2% (39.0-53.0) Mean Corpuscular Volume 83fL (79-100) 82fL (79-100) Mean Corpuscular Hemoglobin 26pg (25-35) 26pg (25-35) Mean Corpuscular Hemoglobin Concent 31g/dL (31-37) 32g/dL (31-37) Red Cell Distribution Width 15.3% (11.5-14.5) 15.3% (11.5-14.5) Platelet Count 529x10^3/uL (140-400) 517x10^3/uL (140-400) Neutrophils (%) (Auto) 95% (31-73) 89% (31-73) Lymphocytes (%) (Auto) 2% (24-48) 5% (24-48) Monocytes (%) (Auto) 3% (0-9) 6% (0-9) Eosinophils (%) (Auto) 0% (0-3) 0% (0-3) Basophils (%) (Auto) 0% (0-3) 0% (0-3) Neutrophils # (Auto) 13.7x10^3uL (1.8-7.7) 13.4x10^3uL (1.8-7.7) Lymphocytes # (Auto) 0.3x10^3/uL (1.0-4.8) 0.7x10^3/uL (1.0-4.8) Monocytes # (Auto) 0.4x10^3/uL (0.0-1.1) 0.9x10^3/uL (0.0-1.1) Eosinophils # (Auto) 0.0x10^3/uL (0.0-0.7) 0.0x10^3/uL (0.0-0.7) Basophils # (Auto) 0.0x10^3/uL (0.0-0.2) 0.0x10^3/uL (0.0-0.2) Sodium Level 138mmol/L (136-145) 141mmol/L (136-145) Potassium Level 5.0mmol/L (3.5-5.1) 4.0mmol/L (3.5-5.1) Chloride Level 100mmol/L (98-107) 104mmol/L (98-107) Carbon Dioxide Level 33mmol/L (21-32) 33mmol/L (21-32) Anion Gap 5 (6-14) 4 (6-14) Blood Urea Nitrogen 17mg/dL (8-26) 15mg/dL (8-26) Creatinine 0.8mg/dL (0.7-1.3) 0.7mg/dL (0.7-1.3) Estimated GFR (Cockcroft-Gault) 118.9 138.7 Glucose Level 130mg/dL (70-99) 125mg/dL (70-99) Calcium Level 8.3mg/dL (8.5-10.1) 8.2mg/dL (8.5-10.1) Laboratory Tests Test 07/28/16 11:40 07/29/16 06:25 White Blood Count 14.5x10^3/uL (4.0-11.0) 15.1x10^3/uL (4.0-11.0) Red Blood Count 3.46x10^6/uL (4.30-5.70) 3.18x10^6/uL (4.30-5.70) Hemoglobin 8.9g/dL (13.0-17.5) 8.3g/dL (13.0-17.5) Hematocrit 28.7% (39.0-53.0) 26.2% (39.0-53.0) Mean Corpuscular Volume 83fL (79-100) 82fL (79-100) Mean Corpuscular Hemoglobin 26pg (25-35) 26pg (25-35) Mean Corpuscular Hemoglobin Concent 31g/dL (31-37) 32g/dL (31-37) Red Cell Distribution Width 15.3% (11.5-14.5) 15.3% (11.5-14.5) Platelet Count 529x10^3/uL (140-400) 517x10^3/uL (140-400) Neutrophils (%) (Auto) 95% (31-73) 89% (31-73) Lymphocytes (%) (Auto) 2% (24-48) 5% (24-48) Monocytes (%) (Auto) 3% (0-9) 6% (0-9) Eosinophils (%) (Auto) 0% (0-3) 0% (0-3) Basophils (%) (Auto) 0% (0-3) 0% (0-3) Neutrophils # (Auto) 13.7x10^3uL (1.8-7.7) 13.4x10^3uL (1.8-7.7) Lymphocytes # (Auto) 0.3x10^3/uL (1.0-4.8) 0.7x10^3/uL (1.0-4.8) Monocytes # (Auto) 0.4x10^3/uL (0.0-1.1) 0.9x10^3/uL (0.0-1.1) Eosinophils # (Auto) 0.0x10^3/uL (0.0-0.7) 0.0x10^3/uL (0.0-0.7) Basophils # (Auto) 0.0x10^3/uL (0.0-0.2) 0.0x10^3/uL (0.0-0.2) Sodium Level 138mmol/L (136-145) 141mmol/L (136-145) Potassium Level 5.0mmol/L (3.5-5.1) 4.0mmol/L (3.5-5.1) Chloride Level 100mmol/L (98-107) 104mmol/L (98-107) Carbon Dioxide Level 33mmol/L (21-32) 33mmol/L (21-32) Anion Gap 5 (6-14) 4 (6-14) Blood Urea Nitrogen 17mg/dL (8-26) 15mg/dL (8-26) Creatinine 0.8mg/dL (0.7-1.3) 0.7mg/dL (0.7-1.3) Estimated GFR (Cockcroft-Gault) 118.9 138.7 Glucose Level 130mg/dL (70-99) 125mg/dL (70-99) Calcium Level 8.3mg/dL (8.5-10.1) 8.2mg/dL (8.5-10.1) Medications Active Scripts Medications Dose Route/Sig Days Date Category Symbicort 80-4.5 Mcg Inhaler (Budesonide/Formoterol Fumarate) 10.2 Gm Hfa.aer.ad 2 Puff IH BID 07/25/16 Reported Durezol (Difluprednate) 5 Ml Drops 5 Ml OP RIGHT EYE BID 07/25/16 Reported Comments cxr reviewed, Impression . 1. 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 Now admitted with dehydration and fever. 2. Postobstructive pneumonia, which was also best visualized on CT chest from [facility]. 3. Moderate to large right pleural effusion, malignant. 4. Fever secondary to postobstructive pneumonia.resolved 5. Marked weight loss due to malignancy. 7. Underlying chronic obstructive pulmonary disease. Plan . Tessalon Perles and prednisone with taper by 10 mg q 3d social service working on disposition 1. Recent ct chest with large hilar mass with moderate-large right effusion and post-obstructive collapse RUL/ adrenal mets. s/p right chest tube 2. XRT 3. empiric antibiotics. 4. bronchodilator 5. pain control ok to dc home discussed w rn, pt and family JOHN ARMIREZ MD Jul 29, 2016 08:49
[2016-07-29] MEDS: PREDNISONE 10 MG TABLET PO SCH (08:53)
[2016-07-29] MEDS: METRONIDAZOLE 500 MG TABLET. PO SCH (08:54)
[2016-07-29] MEDS: BENZONATATE 100 MG CAPSULE. PO SCH ×2 (08:54→11:48)
[2016-07-29] MEDS: GUAIFENESIN ER 600 MG TABLET.ER PO SCH (08:54)
[2016-07-29] MEDS: CEFPODOXIME PROXETIL 100 MG TABLET PO SCH (08:54)
[2016-07-29] MEDS: MULTIVITAMIN with MINERAL TABLET. PO SCH (08:54)
[2016-07-29] MEDS: LACTOBACILLUS ACIDOPH & BULGAR 1 TABLET. PO SCH ×2 (08:54→11:48)
[2016-07-29] MEDS: ENOXAPARIN 40 MG/0.4 ML DISP.SYRIN. SQ SCH (09:00)
[2016-07-29 11:00] VITALS: BP 108/68
[2016-07-29] MEDS: DOXYCYCLINE HYCLATE 100 MG TABLET PO SCH (11:48)
--- NOTE | 2016-07-30 00:28 | DS ---
DATE OF DISCHARGE: 07/29/2016 CHIEF COMPLAINT: Sepsis, pneumonia. HOSPITAL COURSE: The patient is a 60-year-old gentleman with a metastatic [id number] lung carcinoma, currently on radiation, who presented to the hospital with pneumonia, obstructive, as well as sepsis. He was started with antibiotics. Clinically, over the time of his hospitalization, albeit fairly slowly. He was seen by Palliative Care Team and was deemed most appropriate for palliative home health as he wanted to continue radiation. This was arranged and the patient finally felt strong enough to go home on 07/29/2016. He was therefore discharged on that day. PHYSICAL EXAMINATION: VITAL SIGNS: Show blood pressure of 136/89, heart rate of 83, and respiratory rate of 20. GENERAL: He was alert and oriented. HEART: Regular rate and rhythm. LUNGS: With crackles. ABDOMEN: Positive bowel sounds, soft, and nontender. EXTREMITIES: No cyanosis. Positive clubbing. DISCHARGE DISPOSITION: To home with services. DISCHARGE CONDITION: Improved. DISCHARGE DIAGNOSES: Pneumonia, stage IV lung cancer - nonsmall-cell. DISCHARGE MEDICATIONS: Please refer to MAR. DISCHARGE INSTRUCTIONS: The patient will follow up with Radiation Therapy, Dr. Francisco. Greater than 30 minutes were spent in arranging discharge. ROBBIE GARCIA MD DR: AMANDEEP/nts JOB#: [id number] / [id number] VENKATESH
[2016-07-31] MEDS ORDERED: OXYC-323 PO (13:49)
== END 2016-07-29 13:50 | disposition home health service (06) | DRG 871 ==
LOC: 5 NORTH 11:20
PROVIDERS: ADMIT Internal Medicine; ATTEND Internal Medicine
PROC: 0W9930Z Drainage of Right Pleural Cavity with Drainage Device, Percutaneous Approach (ICD-10-PCS; principal; 2016-07-21)
DX: A41.9 Sepsis, unspecified organism (principal); J18.9 Pneumonia, unspecified organism; E43 Unspecified severe protein-calorie malnutrition; C34.11 Malignant neoplasm of upper lobe, right bronchus or lung; C79.70 Secondary malignant neoplasm of unspecified adrenal gland; Z68.1 Body mass index [BMI] 19.9 or less, adult; D68.9 Coagulation defect, unspecified; J44.0 Chronic obstructive pulmonary disease with (acute) lower respiratory infection; J91.0 Malignant pleural effusion; J98.11 Atelectasis; D63.8 Anemia in other chronic diseases classified elsewhere; K59.00 Constipation, unspecified; E86.0 Dehydration; F17.200 Nicotine dependence, unspecified, uncomplicated; G89.3 Neoplasm related pain (acute) (chronic); I10 Essential (primary) hypertension; Z66 Do not resuscitate; Z80.9 Family history of malignant neoplasm, unspecified; Z85.118 Personal history of other malignant neoplasm of bronchus and lung; Z88.0 Allergy status to penicillin; Z79.899 Other long term (current) drug therapy
CPT/HCPCS: 32557; 36415; 71010; 71260; 74177; 77336; 77412; 80048; 80076; 80202; 81001; 83615; 83735; 84100; 84157; 85007; 85027; 85610; 87040; 87071; 87075; 87086; 87205; 87804; 88112; 88305; 88342; 93005; 94250; 94620; 94640; 94760; A4215; C1729; C1892; J1956; J2185; J2250; J2270; J2405; J3010; J3370; J7030; J7040; J7050; J7512; J7620; Q0163; Q9967; 97110; 97116; 97530; 97535; G0641

== ENCOUNTER → 2016-11-08 | Outpatient (CLI) | payer OTHER ==
[2016-07-20 03:18] VITALS: BP 94/62
[~2016-11-08] MED LIST: BUDE10.22 IH; DIFL5DRO2 OP; IOHEXOL 300 MG/ML 75 ML VIAL IV ONE; MEGE400O PO; OXYC-323 PO
--- NOTE | 2016-11-08 10:57 | RAD ---
CHEST CT WITH CONTRAST Locations: Lung cancer. Follow-up study. Comparison: July 19, 2016. Technique: After IV infusion of 75 cc of Omnipaque 300, helical CT scanning of the chest was performed. PQRS Compliance Statement: One or more of the following individualized dose reduction techniques were utilized for this examination: 1. Automated exposure control 2. Adjustment of the mA and/or kV according to patient size 3. Use of iterative reconstruction technique Findings: The right hilar mass lesion seen previously has decreased in size. There is residual soft tissue thickening of the right hilum. No discrete mass is seen today. There is improvement of the narrowing of the right upper lobe bronchus with improved aeration of the right upper lobe. There is improved aeration of the right middle lobe and right lower lobe. The bronchus intermedius is dilated and communicates with a loculated pneumothorax of the major fissure. This is a new finding. This pneumothorax cavity measures 5.4 cm. The previously seen right-sided pleural effusion is much smaller in size. There is a small residual pleural effusion present. There is a new finding of a small complex posterior pleural fluid collection with parietal and visceral pleural enhancement. Few small bubbles of air are seen within it. Therefore, there may be each communication with a bronchus or eroded lung parenchyma or the adjacent loculated pneumothorax in the major fissure. This complex pleural fluid collection is seen involving the posterior right mid chest and measures 10 cm in vertical dimension and 5.5 cm in transverse dimension and 2.5 cm in AP dimension. Again seen is a bulla of the left apex. There is left apical nodular scar present. There is a small chronic pneumatocele of the left lower lobe which is unchanged. Bilateral centrilobular emphysema is seen. The previously seen subcarinal lymphadenopathy has decreased significantly in size. No new thoracic lymphadenopathy is seen. No focal aneurysmal dilatation of the thoracic aorta is seen. The heart size is normal and no pericardial effusion is seen. No osteolytic process is seen. 1.5 cm hypodense left adrenal nodule is unchanged. There is a 1.5 cm right adrenal nodule which has not changed significantly. IMPRESSION: Significant improvement in right hilar mass lesion. There is residual soft tissue thickening of the right hilum. Significant improvement in subcarinal lymphadenopathy. The right upper lobe bronchus is now open with aeration of the right upper lobe. There has been improved aeration of the right middle lobe and right lower lobe as well. Significant improvement in right-sided pleural effusion. There is a residual complex posterior mid chest loculated pleural fluid collection with significant parietal and visceral pleural enhancement and thickening. There is an adjacent loculated pneumothorax within the major fissure. A few bubbles of air are seen within the complex pleural fluid collection which could be secondary to communication with this loculated pneumothorax or could be secondary due to communication with a bronchus or eroded lung parenchyma. Stable bilateral adrenal nodules.
== END | disposition home or self-care (01) ==
LOC: CT 09:44
PROVIDERS: ATTEND Radiology Radiation Oncology
DX: C34.90 Malignant neoplasm of unspecified part of unspecified bronchus or lung (principal); R59.1 Generalized enlarged lymph nodes; J90 Pleural effusion, not elsewhere classified
CPT/HCPCS: 71260; Q9967

== ENCOUNTER → 2017-01-31 | Outpatient (CLI) | payer OTHER ==
[2016-07-20 03:18] VITALS: BP 94/62
[~2017-01-31] MED LIST changes: +GABA-586 PO; +IOHEXOL 300 MG/ML 75 ML VIAL ONE
--- NOTE | 2017-01-31 11:28 | RAD ---
Indication lung cancer. Follow-up. Axial images of the chest were obtained. Approximately 75 cc of Omnipaque 300 was administered intravenously. The current examination is compared to a study 11/08/2016. Imaging through the upper abdomen demonstrates bilateral complex adrenal masses, larger than on the previous examination, most compatible with adrenal metastatic disease. The right adrenal mass measures approximately 2.5 cm in greatest dimension and the left similar. Corresponding measurements previously were each approximately 1.4 cm. The thoracic aorta appears unremarkable. Significant hilar or mediastinal adenopathy is not seen. Underlying emphysematous changes are noted. The left lung is clear. Post therapeutic (radiation therapy) changes in the right lung are noted. Areas of scarring appears similar. Loculated fluid collection with some associated air in the right lower lobe persists and appears similar. A new finding in the right hemithorax is not seen. IMPRESSION: Post therapeutic changes in the right chest. No significant change in the appearance of the chest is seen relative to the study 3 months ago. Enlarging bilateral adrenal masses suggesting metastatic disease PQRS Compliance Statement: One or more of the following individualized dose reduction techniques were utilized for this examination: 1. Automated exposure control 2. Adjustment of the mA and/or kV according to patient size 3. Use of iterative reconstruction technique
== END | disposition home or self-care (01) ==
LOC: CT 08:30
PROVIDERS: ATTEND Radiology Radiation Oncology
DX: C34.90 Malignant neoplasm of unspecified part of unspecified bronchus or lung (principal); E27.8 Other specified disorders of adrenal gland
CPT/HCPCS: 71260; Q9967